=== PATIENT | female | born 1955 | race Caucasian/White ===

== ENCOUNTER 2017-10-12 19:31 | Inpatient (IN) ==
[2017-10-12] MEDS ORDERED: Naloxone 0.4 MG/ML INJ IVP PRN (22:05)
--- NOTE | 2017-10-12 22:05 | Internal Med History&Physical ---
Date of Encounter: 10/13/17 Time of Encounter: 21:50 Internal Medicine - H&P: HPI Chief complaint: Fever and weakness Admitted From: Hospital to Hospital Transfer ([facility]) Plans for Post Hospital Care: [facility] History of present illness: Ms. Finch is a 61 year old female with history of COPD, CHF, CVA, breast cancer of the right breast status post mastectomy, atrial fibrillation, [place], hypertension who presented to the [place] with weakness and high fever. Although the patient is alert and oriented, she is highly somnolent and does not appear to have complete awareness of the circumstances which brought her to the hospital so much history is obtained from prior notes. The patient apparently was visiting her primary care provider today and stepped outside to smoke a cigarette at which time she reportedly became increasingly weak and had a near syncopal episode. EMS was called and she was found to have a fever of 103, and she was reported to be "sluggish" and behavior. According to her family who accompanied her to the emergency room, the patient was doing well prior to this with the exception of a red rash under her left breast tissue, abdominal folds and her extremities. They say that the symptoms started at about the time that she smoked a cigarette in her PCPs office. Significantly, the patient was recently admitted to [facility] and [facility] off-and- on for severe pneumonia/COPD exacerbation, and has been in the ICU at [facility] with acute respiratory failure requiring intubation and mechanical ventilator support. She was most recently discharged from [facility] for an episode of unresponsiveness at which time she was found to have a blood sugar of 43. She was found to have a leukocytosis and bandemia and was treated for continuing pneumonia with Levaquin which continued at discharge. She was discharged to a [facility], however the patient left AMA on Tuesday because she felt that she was not benefiting from maintaining residence there. She has been feeling okay in the time since then, until today. There are no other accompanying symptoms. Patient says shortness of breath has improved, as has her cough, however the reliability of her history is questionable. In the ED at [place], the patient had TMax 105.1, heart rate 126, blood pressure 145/61,, respiratory rate 30. Labs demonstrated WBC 27.8, hemoglobin 11.2, HCT 41.0, sodium 137, potassium 3.3, chloride 96, bicarbonate 31, lactic acid 2.9. On previous admission (09/14), the patient had pansensitive group C strep and blood culture and group B strep in urine culture. Urinalysis was generally unremarkable. Chest x-ray showed stable cardiomegaly, persistent but improved small bilateral pleural effusions with improved aeration in the lower lung zones bilaterally. 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 The patient was diagnosed with sepsis and was started on broad-spectrum antibiotics, given fluids and transferred to [facility] for ICU monitoring. Past Med Surg Social Fam HX - Past Medical History Medical history: arthritis, atrial fibrillation, cancer, CHF, COPD, coronary artery disease, CVA, diabetes, GERD, hyperlipidemia, hypertension, migraine, myocardial infarction, osteoporosis, other Additional medical history: SPINAL STENOSIS with sciatica right worsening left. 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 right elbow sx. masectomy right side. left knee replacement. - Social History Smoking Status: Current every day smoker Smokeless Tobacco Status: No Alcohol use: none Drug use: none - Family History Mother Living Status: Father Living Status: Hx Family Cardiac Disorders: Yes ([place]) Hx Family Endocrine Disorder: Yes Internal Medicine - H&P: Meds Calcium Carbonate [Calcium] 600 mg PO DAILY 10/06/15 [History] OxyCODONE/APAP 10/325 [Percocet 10/325 MG] 1 each PO Q6HR PRN 10/06/15 [History] Albuterol Sulfate [Albuterol Inhaler] 2 puff IH Q4HR PRN #0 12/18/15 [Rx] Budesonide/Formoterol 160/4.5 [Symbicort 160/4.5] 2 puff IH BID 09/15/17 [ History] Rivaroxaban [Xarelto] 20 mg PO DAILY 09/15/17 [History] Ascorbic Acid [C-500] 500 mg PO DAILY #30 tablet 09/29/17 [Rx] Ferrous Sulfate 325 mg PO DAILY #30 tablet 09/29/17 [Rx] Ascorbic Acid [Vitamin C] 500 mg PO 0630 tablet 10/04/17 [Rx] Ferrous Sulfate 325 mg PO 0630 tablet 10/04/17 [Rx] Lactobacillus [Culturelle] 1 each PO BID 3 Days cap.sprink 10/04/17 [Rx] Magnesium Oxide [Mag-Ox] 400 mg PO DAILY 7 Days #0 tablet 10/04/17 [Rx] OxyCODONE/APAP 5/325 [Percocet 5/325 MG] 1 each PO Q6HR PRN 30 Days #120 tablet 10/04/17 [Rx] Potassium Chloride 20 meq PO DAILY 365 Days tab.er.prt 10/04/17 [Rx] levoFLOXacin [Levaquin] 750 mg PO DAILY 3 Days tablet 10/04/17 [Rx] 3 Allergy/AdvReac Type Severity Reaction Status Date / Time lisinopril AdvReac Cough Verified 09/14/17 20:48 morphine AdvReac Nausea Verified 09/14/17 20:48 Penicillins AdvReac Nausea Verified 09/14/17 20:48 ranitidine [From Zantac] AdvReac Diarrhea Verified 09/14/17 20:48 ROS unobtainable: due to mental status All Systems PM: A 10-system review of systems was performed and is negative for pertinent findings except as documented above in the HPI. Review of systems: Review of systems is obtained, however I am unsure of its reliability due to the patient's current somnolence and mental status. Constitutional: Denies fevers, chills, weight loss, generalized fatigue Head/Neck: Denies KIM, neck stiffness EENT: Denies vision changes/blurriness, rhinorrhea, congestion, sore throat CVS: Denies chest pain, palpitations, SAHNI, orthopnea, edema, PND Pulm: Admits to improving shortness breath, cough, sputum production GI: Denies abdominal pain, nausea, vomiting, diarrhea, constipation, melena, hematemasis : Denies dysuria, increased frequency, urgency, hematuria Heme: Denies ease of bleeding or bruising MSK: Denies joint pain, limited ROM Skin: Admits to painful reddening of skin under left breast and on lower extremity Neuro: Denies KIM, paresthesias, focal deficits, ataxia - Constitutional Exam: Gen: Vitals noted. Patient is mildly distressed and somnolent HEENT: Normocephalic, atraumatic. Mucous membranes appear dry. Mallamati 4 Neck: Supple. No adenopathy. Cardiac: RRR, no murmur, +S1/S2. Tachycardic Pulmonary: Rhonchi dispersed throughout however significantly increased on left greater than right. Generalized wheezes Abdomen: soft, tenderness without guarding generally Back: Nontender throughout. 3 stage II sacral decubital ulcers noted, Stage 2- 3 decubitus ulcer noted on right inner thigh near crural fold Extremities: 1-2+ bilateral lower extremity edema with bilateral lower extremity erythema however there is no warmth to be noted, no weeping Neuro: moves all extremities, no focal deficits. A to verbal stimuli &Ox3 but not totally aware of context Internal Med - H&P Results - EKG Data -: EKG Interpreted by Myself EKG shows normal: sinus rhythm, intervals Rate: tachycardia - EKG Data normal axis [place]/QRS: left axis deviation - Assessment and plan (1) Sepsis Current Visit: Yes Status: Acute Assessment and plan: Sepsis, most likely source is pneumonia vs. cutaneous infection TMax 105.1, RR 30, HR >120, Lactic acid 2.9, WBC 27.8 Patient has had numerous hospitalizations in the past month for recurrent or unresolved pneumonia CT scan on arrival does demonstrate multifocal consolidation suspicious for pneumonia The patient was discharged on Levaquin, however it's unclear whether she was compliant as she had concerns about diarrhea In the hospital on last admission, it appears that the patient recieved Vancomycin, levaquin, cefepime In the ED, got 2L fluids, vancomycin and levaquin Plan -Consult to pulmonology for sepsis secondary to recurrent pneumonia -Repeat lactic acid, cmp, cbc -Empiric antibiotics for HCAP pending cultures -Vancomycin, zosyn, levquin -Blood cultures, Sputum cultures pending Qualifiers: Sepsis type: sepsis due to unspecified organism Qualified Code(s): A41.9 - Sepsis, unspecified organism (2) Acute and chronic respiratory failure Current Visit: Yes Status: Acute Assessment and plan: Acute respiratory failure with hypoxia and hypercapnia The patient does have history of COPD, and breathing is relative labored Currently, patient is requiring 8L O2 via oxymask ABG 7.37/58/68/34/92 on 7L Plan: -Bipap overnight and as needed -Duonebs scheduled and prn -Titrate O2 to SpO2 >88% Qualifiers: Respiratory failure complication: hypoxia and hypercapnia Qualified Code(s) : J96.21 - Acute and chronic respiratory failure with hypoxia; J96.22 - Acute and chronic respiratory failure with hypercapnia (3) Pneumonia Current Visit: Yes Status: Acute Assessment and plan: Bilateral, mutifocal pneumonia demonstrated on CT Chest Patient has had numerous hospitalizations in the past month for recurrent or unresolved pneumonia CT scan on arrival does demonstrate multifocal consolidation suspicious for pneumonia On arrival, and in time since, the patient has had increased oxygen demand as well ABG 7.37/58/68/34/92 on 7L Plan -Treat with empiric antibiotics as above -Consider ID consult pending pulmonology recommendations Qualifiers: Pneumonia type: due to unspecified organism Laterality: bilateral Lung location: unspecified part of lung Qualified Code(s): J18.9 - Pneumonia, unspecified organism (4) COPD (chronic obstructive pulmonary disease) Current Visit: Yes Status: Acute Assessment and plan: COPD Exacerbation The patient is having increased O2 demand, CO2 retention There is diffuse wheezing on examination I suspect that exacerbation of COPD plays role in this respiratory failure Plan -IV Solu-medrol 60mg Q8h -Duonebs scheduled and prn Qualifiers: COPD type: unspecified COPD Qualified Code(s): J44.9 - Chronic obstructive pulmonary disease, unspecified (5) Weakness Current Visit: Yes Status: Acute Assessment and plan: We will consult PT/OT when the patient is stable medically (6) Atrial fibrillation Current Visit: No Status: Chronic Assessment and plan: History of atrial fibrillation EKG on arrival was questionable for Afib RVR with HR 121 Following fluids, repeat EKG demonstrated sinus tachycardia Plan Continue Xarelto Continue home meds Qualifiers: Atrial fibrillation type: chronic Qualified Code(s): I48.2 - Chronic atrial fibrillation (7) Hypokalemia Current Visit: Yes Status: Acute Assessment and plan: Replete potassium (8) Obesity Current Visit: No Status: Acute Qualifiers: Obesity type: due to excess calories Obesity classification: adult class 3 (BMI >= 40) Serious obesity comorbidity presence: with serious comorbidity Body mass index: unspecified BMI Qualified Code(s): E66.01 - Morbid (severe) obesity due to excess calories - Time Spent With Patient Total time spent is greater than 50% in coordination of care (as documented) at patient's floor/unit and/or counseling patient:
[2017-10-12] MEDS ORDERED: Acetaminophen 325 MG TABLET PO PRN (22:15)
[2017-10-12] MEDS ORDERED: traMADol 50 MG TABLET PO PRN (22:15)
[2017-10-12] MEDS ORDERED: *HR* HYDROcodone/Acet 5/325 mg TABLET PO PRN (22:15)
[2017-10-12 22:56] LABS: ABG Base Excess 7 mEq/L (-2 to 3); ABG HCO3 34 mEq/L (21-27); ABG Oxygen Saturation 92 % (95-98); ABG PCO2 58 mmHg (35-45); ABG PH 7.37 pH Units (7.32-7.45); ABG PO2 68 mmHg (85-104); ABG TCO2 35 mEq/L (20-26)
[2017-10-12] MEDS ORDERED: *HR* OxyCODONE/APAP 10/325 TABLET PO PRN (23:14)
--- NOTE | 2017-10-12 23:34 | Sepsis Event Note ---
Sepsis Reassessment Note - Evaluation Sepsis Screen: Sepsis Risk Current Stage of Sepsis: sepsis Possible Source of Sepsis: pulmonary - Focused Exam Date of Encounter: 10/12/17 Time of Encounter: 23:31 Vital Signs: Vital Signs Temp Pulse Resp BP Pulse Ox 10/12/17 22:55 102.1 F H 103 15 116/55 96 10/12/17 22:46 103 Respiratory Exam: Present: rhonchi (L>R), crackles Cardiovascular Exam: Present: RRR, tachycardia. Absent: murmur, rubs, gallop, JVD Capillary Refill: < 2 seconds Peripheral Pulse Strength: 1+ faint Peripheral Pulse Location: Pedal Skin Exam: pink
[2017-10-12] MEDS ORDERED: Vancomycin 1,750 MG in 0.9 % Sodium Chloride 250 ML IVPB SCH (23:45)
[2017-10-13] MEDS: Piperacillin/Tazobactam 3.375 GM in 0.9 % Sodium Chloride Mini Bag 100 ML IVPB SCH ×2 (00:02→08:24)
[2017-10-13] MEDS ORDERED: Ipratropium/Albuterol Neb 3 ML IH PRN ×2 (01:15→19:18)
[2017-10-13 03:51] LABS: Basophils # 0.1 K/mcL (0.0-0.2); Basophils % 0.2 %; Eosinophils % 0.1 %; Hematocrit 38.6 % (35.3-44.9); Hemoglobin 10.6 g/dL (11.5-15.4); Immature Granulocytes % 0.9 % (0-4); Lymphocytes # 1.3 K/mcL (0.6-4.6); Lymphocytes % 5.3 %; Mean Corpuscular HGB Conc 27.5 g/dL (31.6-35.5); Mean Corpuscular Hemoglobin 21.8 pg (28.0-33.3); Mean Corpuscular Volume 79.4 fL (83.0-100.0); Neutrophils # 22.3 K/mcL (1.6-8.9); Platelet Count 149 K/mcL (140-400); Red Blood Count 4.86 M/mcL (3.82-4.97); Red Cell Distribution Width 23.5 % (11.5-14.5); Segmented Neutrophils % 89.5 %
[2017-10-13] MEDS: Ipratropium/Albuterol Neb 3 ML IH SCH ×6 (03:56→23:43)
[2017-10-13 04:11] LABS: Alanine Aminotransferase 7 Units/L (7-52); Albumin 2.6 g/dL (3.5-5.7); Albumin/Globulin Ratio 0.8 (1.1-2.2); Alkaline Phosphatase 56 Units/L (34-104); Aspartate Amino Transferase 14 Units/L (13-39); BUN/Creatinine Ratio 17 (6-26); Bilirubin,Total 0.6 mg/dL (0.3-1.0); Blood Urea Nitrogen 10 mg/dL (8-23); Calcium 7.2 mg/dL (8.6-10.3); Carbon Dioxide 28 mEq/L (23-29); Chloride 102 mEq/L (98-107); Globulin 3.3 g/dL (2.4-3.5); Glucose 135 mg/dL (70-105); Magnesium 1.1 mg/dL (1.6-2.6); Osmolality,Calculated 283 (280-300); Potassium 3.5 mEq/L (3.5-5.1); Sodium 136 mEq/L (136-145); Total Protein 5.9 g/dL (6.4-8.9); eGFR For Non-African Americans > 60 (> 60)
[2017-10-13 04:18] LABS: Anisocytosis 2+ (Not Present); Hypochromasia Present (Not Present)
[2017-10-13 04:19] LABS: Large Platelets Present (Not Present); Microcytosis Present (Not Present); Ovalocytes 1+ (Not Present); Platelet Estimate Normal (Normal); Poikilocytosis 2+ (Not Present); Reactive Lymphocytes Present (Not Present); Smudge Cells Present (Not Present); Tear Drop Cells 1+ (Not Present)
[2017-10-13] MEDS ORDERED: Potassium Phosphate 44 MEQ in 0.9 % Sodium Chloride 250 ML IVPB PRN (05:34)
[2017-10-13] MEDS ORDERED: methylPREDNISolone 125 MG/2 ML VIAL IVP SCH (08:00)
--- NOTE | 2017-10-13 08:06 | Pulmonology History & Physical ---
<Ibrahima Nguyen W - Last Filed: 10/13/17 09:09> Date of Encounter: 10/13/17 History of Present Illness HPI: Ms. Finch is a 61 year old female Medications and Allergies Calcium Carbonate [Calcium] 600 mg PO DAILY 10/06/15 [History] OxyCODONE/APAP 10/325 [Percocet 10/325 MG] 1 each PO Q6HR PRN 10/06/15 [History] Albuterol Sulfate [Albuterol Inhaler] 2 puff IH Q4HR PRN #0 12/18/15 [Rx] Budesonide/Formoterol 160/4.5 [Symbicort 160/4.5] 2 puff IH BID 09/15/17 [ History] Rivaroxaban [Xarelto] 20 mg PO DAILY 09/15/17 [History] Ascorbic Acid [C-500] 500 mg PO DAILY #30 tablet 09/29/17 [Rx] Ferrous Sulfate 325 mg PO 0630 tablet 10/04/17 [Rx] Lactobacillus [Culturelle] 1 each PO BID 3 Days cap.sprink 10/04/17 [Rx] Magnesium Oxide [Mag-Ox] 400 mg PO DAILY 7 Days #0 tablet 10/04/17 [Rx] Potassium Chloride 20 meq PO DAILY 365 Days tab.er.prt 10/04/17 [Rx] Albuterol Neb [AccuNeb] 1.25 mg IH Q4-6H PRN 10/13/17 [History] Aspirin [Lo-Dose Aspirin EC] 81 mg PO DAILY 10/13/17 [History] Atorvastatin [Lipitor] 40 mg PO HS 10/13/17 [History] Bisacodyl [Dulcolax] 5 mg PO BID 10/13/17 [History] Bumetanide [Bumetanide] 4 mg PO QPM 10/13/17 [History] Bumetanide [Bumetanide] 6 mg PO QAM 10/13/17 [History] Cetirizine HCl [Zyrtec] 10 mg PO DAILY 10/13/17 [History] Cholecalciferol (D-3) [Vitamin D] 1,000 unit PO DAILY 10/13/17 [History] Gabapentin [Neurontin] 600 mg PO TID 10/13/17 [History] Glimepiride [Amaryl] 4 mg PO DAILY 10/13/17 [History] Isosorbide MONOnitrate (24 HR) [Imdur] 60 mg PO DAILY 10/13/17 [History] Losartan [Cozaar] 25 mg PO DAILY 10/13/17 [History] Methocarbamol [Robaxin] 750 mg PO TID 10/13/17 [History] Metoprolol Succinate [Toprol Xl] 100 mg PO DAILY 10/13/17 [History] Montelukast [Singulair] 10 mg PO HS 10/13/17 [History] Pantoprazole Sodium [Protonix] 40 mg PO DAILY 10/13/17 [History] Saxagliptin HCl [Onglyza] 5 mg PO DAILY 10/13/17 [History] Sertraline [Zoloft] 25 mg PO DAILY 10/13/17 [History] Sucralfate [Carafate] 1 gm PO QPM 10/13/17 [History] Tiotropium Br/Olodaterol HCl [Stiolto Respimat Inhal [place]] 2 puff IH DAILY [History] hydrOXYzine HCl [Hydroxyzine HCl] 25 mg PO TID PRN 10/13/17 [History] 3 Allergy/AdvReac Type Severity Reaction Status Date / Time lisinopril AdvReac Cough Verified 10/13/17 08:20 morphine AdvReac Nausea Verified 10/13/17 08:20 Penicillins AdvReac Nausea Verified 10/13/17 08:20 ranitidine [From Zantac] AdvReac Diarrhea Verified 10/13/17 08:20 All Systems: The remainder of the systems were reviewed and are negative Physical Examination Vital Signs: Vital Signs, Last 4 Hours Temp Pulse Resp BP Pulse Ox 10/13/17 08:00 91 15 121/58 98 10/13/17 07:47 20 98 10/13/17 07:43 97.8 F 10/13/17 07:00 94 13 126/60 98 10/13/17 06:00 85 14 116/60 98 Results - Laboratory Findings CBC and BMP: 10/13/17 03:41 10/13/17 03:41 ABG ABG pH 7.37 pH Units (7.32-7.45) 10/12/17 22:51 ABG pCO2 58 mmHg (35-45) H 10/12/17 22:51 ABG pO2 68 mmHg (85-104) L 10/12/17 22:51 ABG O2 Saturation 92 % (95-98) L 10/12/17 22:51 Abnormal lab findings: Abnormal lab results WBC 24.9 K/mcL (4.3-11.1) H 10/13/17 03:41 Hgb 10.6 g/dL (11.5-15.4) L 10/13/17 03:41 MCV 79.4 fL (83.0-100.0) L 10/13/17 03:41 MCH 21.8 pg (28.0-33.3) L 10/13/17 03:41 MCHC 27.5 g/dL (31.6-35.5) L 10/13/17 03:41 RDW 23.5 % (11.5-14.5) H 10/13/17 03:41 Neutrophils # 22.3 K/mcL (1.6-8.9) H 10/13/17 03:41 Reactive Lymphocytes Present (Not Present) A 10/13/17 03:41 Smudge Cells Present (Not Present) A 10/13/17 03:41 Large Platelets Present (Not Present) A 10/13/17 03:41 Hypochromasia Present (Not Present) A 10/13/17 03:41 Poikilocytosis 2+ (Not Present) A 10/13/17 03:41 Anisocytosis 2+ (Not Present) A 10/13/17 03:41 Microcytosis Present (Not Present) A 10/13/17 03:41 Tear Drop Cells 1+ (Not Present) A 10/13/17 03:41 Ovalocytes 1+ (Not Present) A 10/13/17 03:41 ABG pCO2 58 mmHg (35-45) H 10/12/17 22:51 ABG pO2 68 mmHg (85-104) L 10/12/17 22:51 ABG HCO3 34 mEq/L (21-27) H 10/12/17 22:51 ABG Total CO2 35 mEq/L (20-26) H 10/12/17 22:51 ABG O2 Saturation 92 % (95-98) L 10/12/17 22:51 ABG Base Excess 7 mEq/L (-2 to 3) H 10/12/17 22:51 Creatinine 0.58 mg/dL (0.60-1.20) L 10/13/17 03:41 Glucose 135 mg/dL (70-105) H 10/13/17 03:41 POC Glucose 113 mg/dL (70-99) H 10/13/17 07:25 Calcium 7.2 mg/dL (8.6-10.3) L 10/13/17 03:41 Magnesium 1.1 mg/dL (1.6-2.6) L 10/13/17 03:41 B-Natriuretic Peptide 1118 pg/mL (Less than 100) H 10/13/17 03:41 Serum Total Protein 5.9 g/dL (6.4-8.9) L 10/13/17 03:41 Albumin 2.6 g/dL (3.5-5.7) L 10/13/17 03:41 Albumin/Globulin Ratio 0.8 (1.1-2.2) L 10/13/17 03:41 - Attending Attestation I examined this patient and my medical decision-making was reviewed with the Resident Physician. I agree with the documented findings, disposition and treatment plan as described except to the extent set forth below. We independently had [id number] contact with the patient Patient seen and examined at bedside Labs, radiology, chart personally reviewed. Management was reviewed during multidisciplinary critical care rounds. SECURITY STRATEGIST: The patient is fully awake and alert continue to monitor for delirium Pulm: Acute on chronic hypoxic hypercapnic respiratory failure probably hypoxia which I think in large part is related to cardiogenic pulmonary edema possibility of pneumonia exists she has severe underlying COPD and obesity hypoventilation syndrome/obstructive sleep apnea acceptable oxygenation and gas exchange today continue oxygen mask during the day and positive airway pressure at night Cards: Patient has a history of heart failure and has evidence of cardiogenic pulmonary edema I believe it is safe to initiate diuresis today because of the crystalloid infusion that she received in the last 24 hours. No evidence of cardiac ischemia GI: Continue to monitor Nutrition: Advance diet as tolerated Renal: UOP Monitored, Cont to Trend sCr and monitor Electrolytes. ID: Patient came in with pyrexia likely secondary to sepsis sources include cellulitis versus pneumonia she is on broad-spectrum antibiotics cultures are pending. Blood de-escalate based upon clinical course and cultures. May need ID consult. Although the patient has listed penicillin allergy this is an intolerance in that it caused diarrhea in the past but she has tolerated penicillin before without allergic response we will switch from Zosyn to cefepime for coverage of cellulitis and continue vancomycin Heme/Onc: She is on long-term anticoagulation H&H is stable Endo: Glucose Monitored Integ/MSK: She has evidence of blanching erythema throughout the lower abdomen and pelvic region which may suggest cellulitisshe also has some lower extremity edema/erythema which I suspect is related to chronic stasis CT of the pelvis and abdomen was not suggestive of 40 years gangrene and that is not my impression on physical examination either. We will continue to follow this very closely. Skin Care per routine ICU Nursing Protocol to prevent ulcers. Lines: All lines examined without evidence of infection : Dispo: I suspect that [facility] CODE: Full <Micheal Lujan - Last Filed: 10/13/17 21:02> Date of Encounter: 10/13/17 Time of Encounter: 08:00 Assessment and Plan (1) Sepsis Current visit: Yes Status: Acute - likely due to an Infectious etiology - cellulitis/Pneumonia, Resp Infection Panel was negative. patient was leukocytotic (27.8), Tachcardia (HR: 126) wit elevated lactate (2.9) when she came to the [place] ED. Received 2L fluids Vanc and Levqin in the ED - Initially we stared her on Cefepime and Vancomycin, but we discontinued her vancomycin because her MRSA swab was negative. Her Urine Culture was negative for Legionella and S. Pneumo - patient is currently on 4 L of oxygen ([place]) , currently not tachycardic. - continue to the monitor her hemodynamic satus. Qualifiers: Sepsis type: sepsis due to unspecified organism Qualified Code(s): A41.9 - Sepsis, unspecified organism (2) Acute and chronic respiratory failure with hypercapnia Current visit: Yes Status: Acute - patient has a Hx of COPD , Her ABG on admission was pH: 7.37, pCO2: 58, PO2: 68, HCO3-: 34 - her CXR did showed pulmonary edema, BNP : 1118. Hence the resp faiure could likely be due to cardiogenic pulmonary edema - currently on duonebs, AbX and 6L of oxygen, 1mg Bumex for diuresis. - Titrate oxygen to keep the SpO2> 88% (3) COPD (chronic obstructive pulmonary disease) Current visit: Yes Status: Acute -patient has a Hx of COPD. - her ABG showed Compensatory Respiratory Acidosis physical exam showed b/l wheezing - she's on duonebs scheduled/PRN, Abx and Suple O2 - continue to monitor her Respiratory Status. Titrate O2 to keep SpO2> 88% Qualifiers: COPD type: unspecified COPD Qualified Code(s): J44.9 - Chronic obstructive pulmonary disease, unspecified (4) Pneumonia Current visit: Yes Status: Acute - patient has had multiple episodes of pneumonia. - Chest CT showed irregular consolidative opacities with concern for multifocal pneumonia - Her physical exam shows b/l wheezing but no fever, chills she's being treated with broad spectrum Abx (cefepime) , currently on 4L of oxygen Qualifiers: Pneumonia type: due to unspecified organism Laterality: bilateral Lung location: unspecified part of lung Qualified Code(s): J18.9 - Pneumonia, unspecified organism History of Present Illness Chief complaint: acute on chronic hypercapnic respiratory failure HPI: Ms. Finch is a 61 year old female with a PMHx of recurrent PNA, Diastolic dysfunction, Breast cancer s/p R sided mastectomy, Afib, who was admitted to the [place] ED for weakness and high fever. Patient is a poor historian but from what I understand patient stepped out to smoke and felt very sluggish, weak and had a near syncopal issue. Patient was transferred to the ED [place] and was diagnosed with Sepsis (leukocytosis of 27.8, HR: 126, lactic acid : 2.9) . She was started on broad spectrum Abx and fluids and transferred to the [facility] ICU. patient has had multiple admissions in the past for recurrent PNA to [facility] and the last time she as there she was discharged on levaquin and transferred to SNF Past Med Surg Social Fam HX - Past Medical History Medical history: arthritis, atrial fibrillation, cancer, CHF, COPD, coronary artery disease, CVA, diabetes, GERD, hyperlipidemia, hypertension, migraine, myocardial infarction, osteoporosis, other Additional medical history: SPINAL STENOSIS with sciatica right worsening left. 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 right elbow sx. masectomy right side. left knee replacement. - Social History Smoking Status: Current every day smoker Smokeless Tobacco Status: No Alcohol use: none Drug use: none - Family History Mother Living Status: Father Living Status: Hx Family Cardiac Disorders: Yes ([place]) Hx Family Endocrine Disorder: Yes All Systems: The remainder of the systems were reviewed and are negative - Constitutional Constitutional: as per HPI - EENT Eyes: as per HPI Nose, mouth and throat: as per HPI - Cardiovascular Cardiovascular: as per HPI - Respiratory Respiratory: as per HPI - Gastrointestinal Gastrointestinal: as per HPI - Genitourinary Genitourinary: as per HPI Physical Examination Vital Signs: Vital Signs, Last 4 Hours Temp Pulse Resp BP Pulse Ox 10/13/17 07:43 97.8 F 10/13/17 07:00 80 13 126/60 98 10/13/17 06:00 85 14 116/60 98 10/13/17 05:00 85 14 115/52 98 General appearance: no acute distress (A&O*3, good mentation) Auscultation: bilateral: wheezes (no rales or ronchi) Percussion: bilateral: not dull Cardiovascular: regular rate and rhythm (no gallos, murmurs or rubs) Gastrointestinal: soft, non-tender, non-distended Extremities: no cyanosis, no edema, no clubbing (blanched erythema on her lower extremities) Results - Laboratory Findings CBC and BMP: 10/13/17 03:41 10/13/17 13:10 ABG ABG pH 7.37 pH Units (7.32-7.45) 10/12/17 22:51 ABG pCO2 58 mmHg (35-45) H 10/12/17 22:51 ABG pO2 68 mmHg (85-104) L 10/12/17 22:51 ABG O2 Saturation 92 % (95-98) L 10/12/17 22:51 Abnormal lab findings: Abnormal lab results WBC 24.9 K/mcL (4.3-11.1) H 10/13/17 03:41 Hgb 10.6 g/dL (11.5-15.4) L 10/13/17 03:41 MCV 79.4 fL (83.0-100.0) L 10/13/17 03:41 MCH 21.8 pg (28.0-33.3) L 10/13/17 03:41 MCHC 27.5 g/dL (31.6-35.5) L 10/13/17 03:41 RDW 23.5 % (11.5-14.5) H 10/13/17 03:41 Neutrophils # 22.3 K/mcL (1.6-8.9) H 10/13/17 03:41 Reactive Lymphocytes Present (Not Present) A 10/13/17 03:41 Smudge Cells Present (Not Present) A 10/13/17 03:41 Large Platelets Present (Not Present) A 10/13/17 03:41 Hypochromasia Present (Not Present) A 10/13/17 03:41 Poikilocytosis 2+ (Not Present) A 10/13/17 03:41 Anisocytosis 2+ (Not Present) A 10/13/17 03:41 Microcytosis Present (Not Present) A 10/13/17 03:41 Tear Drop Cells 1+ (Not Present) A 10/13/17 03:41 Ovalocytes 1+ (Not Present) A 10/13/17 03:41 ABG pCO2 58 mmHg (35-45) H 10/12/17 22:51 ABG pO2 68 mmHg (85-104) L 10/12/17 22:51 ABG HCO3 34 mEq/L (21-27) H 10/12/17 22:51 ABG Total CO2 35 mEq/L (20-26) H 10/12/17 22:51 ABG O2 Saturation 92 % (95-98) L 10/12/17 22:51 ABG Base Excess 7 mEq/L (-2 to 3) H 10/12/17 22:51 Creatinine 0.58 mg/dL (0.60-1.20) L 10/13/17 03:41 Glucose 135 mg/dL (70-105) H 10/13/17 03:41 POC Glucose 113 mg/dL (70-99) H 10/13/17 07:25 Calcium 7.2 mg/dL (8.6-10.3) L 10/13/17 03:41 Magnesium 1.1 mg/dL (1.6-2.6) L 10/13/17 03:41 B-Natriuretic Peptide 1118 pg/mL (Less than 100) H 10/13/17 03:41 Serum Total Protein 5.9 g/dL (6.4-8.9) L 10/13/17 03:41 Albumin 2.6 g/dL (3.5-5.7) L 10/13/17 03:41 Albumin/Globulin Ratio 0.8 (1.1-2.2) L 10/13/17 03:41
--- NOTE | 2017-10-13 08:21 | Electrocardiograph Report ---
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
[2017-10-13] MEDS ORDERED: Levofloxacin 750 MG/150 ML 750 MG/150 ML BAG IVPB SCH (09:00)
[2017-10-13] MEDS ORDERED: *HR* Rivaroxaban 10 MG TABLET PO SCH ×2 (09:00→18:00)
[2017-10-13 09:07] LABS: Amphetamine Screen,Urine Negative ng/mL (Cutoff=1000); Barbiturate Screen,Urine Negative ng/mL (Cutoff=200); Benzodiazepines Screen,Urine Negative ng/mL (Cutoff=200); Cannabinoid Screen,Urine Negative ng/mL (Cutoff = 50); Cocaine Screen,Urine Negative ng/mL (Cutoff= 300); Opiate Screen,Urine Negative ng/mL (Cutoff=300); Phencyclidine Screen,Urine Negative ng/mL (Cutoff=25)
[2017-10-13] MEDS ORDERED: D5% in Water 1,000 ML IVC PRN ×2 (10:34→19:18)
[2017-10-13] MEDS ORDERED: Dextrose Gel 15 GM/37.5 ML TUBE PO PRN ×4 (10:34→19:18)
[2017-10-13] MEDS ORDERED: *HR* Dextrose 50 % in Water (Syg) 50 ML SYRINGE IVP PRN ×2 (10:34→19:18)
[2017-10-13] MEDS: Bumetanide 1 MG/4 ML VIAL IVP SCH ×2 (11:19→16:37)
[2017-10-13 11:56] LABS: ABG Base Excess 4 mEq/L (-2 to 3); ABG HCO3 31 mEq/L (21-27); ABG Oxygen Saturation 94 % (95-98); ABG PCO2 51 mmHg (35-45); ABG PH 7.38 pH Units (7.32-7.45); ABG PO2 72 mmHg (85-104); ABG TCO2 32 mEq/L (20-26)
[2017-10-13] MEDS: Insulin LISPRO 300 UNITS/3 ML VIAL SQ SCH ×3 (11:57→20:18)
[2017-10-13 13:48] LABS: Magnesium 1.4 mg/dL (1.6-2.6); Potassium 3.5 mEq/L (3.5-5.1)
[2017-10-13] MEDS ORDERED: Cefepime HCl 1,000 MG in Water for inj. (sterile) 20 ML 10 ML IVP SCH (16:00)
[2017-10-13] MEDS ORDERED: Naloxone 0.4 MG/ML INJ IVP PRN (19:18)
[2017-10-13] MEDS ORDERED: *HR* HYDROcodone/Acet 5/325 mg TABLET PO PRN (19:18)
[2017-10-13] MEDS ORDERED: Acetaminophen 325 MG TABLET PO PRN (19:18)
[2017-10-13] MEDS ORDERED: Ipratropium/Albuterol Neb 3 ML ONE (19:41)
[2017-10-13] MEDS ORDERED: Insulin LISPRO 300 UNITS/3 ML VIAL SQ SCH (21:00)
[2017-10-13 22:37] LABS: Basophils % 0.1 %; Hematocrit 35.9 % (35.3-44.9); Immature Granulocytes % 0.7 % (0-4); Lymphocytes # 0.3 K/mcL (0.6-4.6); Lymphocytes % 2.8 %; Mean Corpuscular HGB Conc 27.9 g/dL (31.6-35.5); Mean Corpuscular Hemoglobin 22.1 pg (28.0-33.3); Mean Corpuscular Volume 79.2 fL (83.0-100.0); Mean Platelet Volume 11.4 fL (9.4-12.4); Monocytes # 0.3 K/mcL (0.0-1.3); Monocytes % 2.1 %; Neutrophils # 11.6 K/mcL (1.6-8.9); Platelet Count 133 K/mcL (140-400); Red Blood Count 4.53 M/mcL (3.82-4.97); Red Cell Distribution Width 23.2 % (11.5-14.5); Segmented Neutrophils % 94.3 %
[2017-10-13 22:48] LABS: Anisocytosis 2+ (Not Present); Hypochromasia Present (Not Present); Ovalocytes 1+ (Not Present)
[2017-10-13 22:51] LABS: Alanine Aminotransferase 8 Units/L (7-52); Albumin 2.6 g/dL (3.5-5.7); Albumin/Globulin Ratio 0.8 (1.1-2.2); Alkaline Phosphatase 59 Units/L (34-104); Aspartate Amino Transferase 10 Units/L (13-39); BUN/Creatinine Ratio 22 (6-26); Bilirubin,Total 0.4 mg/dL (0.3-1.0); Blood Urea Nitrogen 11 mg/dL (8-23); Calcium 7.7 mg/dL (8.6-10.3); Carbon Dioxide 28 mEq/L (23-29); Chloride 100 mEq/L (98-107); Globulin 3.4 g/dL (2.4-3.5); Glucose 225 mg/dL (70-105); Osmolality,Calculated 290 (280-300); Potassium 3.4 mEq/L (3.5-5.1); Sodium 137 mEq/L (136-145); eGFR For Non-African Americans > 60 (> 60)
[2017-10-14] MEDS: Cefepime HCl 1,000 MG in Water for inj. (sterile) 20 ML 10 ML IVP SCH ×3 (00:10→17:07)
[2017-10-14 03:52] LABS: Immature Granulocytes % 0.7 % (0-4); Mean Corpuscular HGB Conc 27.6 g/dL (31.6-35.5)
[2017-10-14 03:53] LABS: Basophils % 0.1 %; Hematocrit 36.6 % (35.3-44.9); Hemoglobin 10.1 g/dL (11.5-15.4); Lymphocytes # 0.5 K/mcL (0.6-4.6); Lymphocytes % 3.6 %; Mean Corpuscular Hemoglobin 21.6 pg (28.0-33.3); Mean Corpuscular Volume 78.4 fL (83.0-100.0); Monocytes # 0.4 K/mcL (0.0-1.3); Neutrophils # 12.5 K/mcL (1.6-8.9); Platelet Count 128 K/mcL (140-400); Red Blood Count 4.67 M/mcL (3.82-4.97); Red Cell Distribution Width 23.2 % (11.5-14.5); Segmented Neutrophils % 92.6 %
[2017-10-14 04:14] LABS: BUN/Creatinine Ratio 25 (6-26); Blood Urea Nitrogen 11 mg/dL (8-23); Carbon Dioxide 31 mEq/L (23-29); Chloride 101 mEq/L (98-107); Glucose 153 mg/dL (70-105); Magnesium 1.6 mg/dL (1.6-2.6); Osmolality,Calculated 286 (280-300); Potassium 3.7 mEq/L (3.5-5.1); Sodium 137 mEq/L (136-145); eGFR For Non-African Americans > 60 (> 60)
[2017-10-14 04:23] LABS: Platelet Estimate Decreased (Normal)
[2017-10-14 04:24] LABS: Anisocytosis 2+ (Not Present); Hypochromasia Present (Not Present)
[2017-10-14] MEDS: Ipratropium/Albuterol Neb 3 ML IH SCH ×5 (04:24→23:11)
[2017-10-14] MEDS: *HR* OxyCODONE/APAP 10/325 TABLET PO PRN ×2 (06:27→19:20)
[2017-10-14] MEDS ORDERED: Bumetanide 1 MG/4 ML VIAL IVP SCH (08:00)
[2017-10-14] MEDS: predniSONE 20 MG TABLET PO SCH (08:57)
[2017-10-14] MEDS: Insulin LISPRO 300 UNITS/3 ML VIAL SQ SCH ×4 (09:00→21:27)
[2017-10-14] MEDS ORDERED: predniSONE 20 MG TABLET PO SCH (09:00)
[2017-10-14] MEDS: Aspirin Enteric Coated 81 MG Tablet PO SCH (12:26)
[2017-10-14] MEDS: Ascorbic Acid 500 MG TABLET PO SCH (12:31)
[2017-10-14] MEDS: Metoprolol XL (24 HR) Succ 50 MG TAB.ER.24H PO SCH (12:31)
[2017-10-14] MEDS: Isosorbide MONOnitrate (24 HR) 60 MG TAB.ER.24H PO SCH (12:31)
[2017-10-14 14:30] LABS: Adenovirus F 40/41 PCR Not detected (Not detect); C.difficile Toxin A/B by PCR Not detected (Not detect); Campylobacter by PCR Not detected (Not detect); Cryptosporidium by PCR Not detected (Not detect); Cyclospora cayetanensis PCR Not detected (Not detect); E. coli O157 by PCR Not detected (Not detect); Entamoeba histolytica PCR Not detected (Not detect); Enteroaggregative E.coli(EAEC) Not detected (Not detect); Enteropathogenic E.coli(EPEC) Not detected (Not detect); Enterotoxigenic E.coli (ETEC) Not detected (Not detect); Giardia lamblia PCR Not detected (Not detect); Plesiomonas shigelloides PCR Not detected (Not detect); Salmonella PCR Not detected (Not detect); Shig/EnteroinvasiveE coli EIEC Not detected (Not detect); Shigalike tox-prod E coli STEC Not detected (Not detect); Vibrio PCR Not detected (Not detect); Vibrio cholerae PCR Not detected (Not detect); Yersinia enterocolitica PCR Not detected (Not detect)
[2017-10-14 14:31] LABS: Astrovirus PCR Not detected (Not detect); Norovirus GI/GII PCR Not detected (Not detect); Rotavirus A PCR Not detected (Not detect); Sapovirus PCR Not detected (Not detect)
--- NOTE | 2017-10-14 15:39 | Internal Med Progress Note ---
Date of Encounter: 10/14/17 Time of Encounter: 08:40 - Assessment and plan (1) Sepsis Current Visit: Yes Status: Acute Assessment and plan: Sepsis, present on admission, likely secondary to pneumonia and cellulitis - now improving Continue IV cefepime, DuoNeb breathing treatment, prednisone Vancomycin discontinued because MRSA is negative Continue O2 via nasal cannula Repeat labs in a.m., cardiac telemetry, monitor closely Qualifiers: Sepsis type: sepsis due to unspecified organism Qualified Code(s): A41.9 - Sepsis, unspecified organism (2) Acute and chronic respiratory failure with hypercapnia Current Visit: Yes Status: Acute Assessment and plan: Acute on chronic hypercapnic respiratory failure - secondary to COPD exacerbation and pneumonia Continue DuoNeb breathing treatment, IV cefepime, incentive spirometry, IV Bumex Labs in a.m., monitor closely (3) COPD (chronic obstructive pulmonary disease) Current Visit: Yes Status: Chronic Assessment and plan: Acute exacerbation of COPD, slowly improving Continue Prednisone, DuoNeb breathing treatment Qualifiers: COPD type: unspecified COPD Qualified Code(s): J44.9 - Chronic obstructive pulmonary disease, unspecified (4) Atrial fibrillation Current Visit: No Status: Chronic Assessment and plan: Chronic A. fib, rate controlled Continue Xarelto for anticoagulation, continue Toprol-XL Qualifiers: Atrial fibrillation type: chronic Qualified Code(s): I48.2 - Chronic atrial fibrillation - Time Spent With Patient 25 - 35 minutes - Subjective Interval history: Examined this morning. Patient is awake and alert. Not in any distress. Sitting up comfortably in chair. Tolerating oral diet. Denies chest pain. Complains of mild cough and mild shortness of breath. Complains of mild generalized weakness. States her symptoms have improved. No fever. Hemodynamically stable. No other acute complaints. Patient has good urine output. Continue Bumex. Admitted for sepsis secondary to pneumonia or cellulitis. Patient also has acute exacerbation of COPD. Pulmonology has evaluated the patient. Continue IV cefepime and DuoNeb breathing treatment. Anticipate discharged home in 24- 48 hours. Patient does not want to go to SNF. - Constitutional Vitals: Temp Pulse Resp BP Pulse Ox 97.5 F L 74 18 116/75 98 10/14/17 10:13 10/14/17 10:13 10/14/17 10:13 10/14/17 10:13 10/14/17 10:13 General appearance: Present: cooperative, A&O X 3, pleasant, no acute distress, obese, answers questions appropriately - Head Head exam: Present: atraumatic - Eye Eye exam: Present: EOMI - ENT ENT exam: Present: mucous membranes moist - Respiratory Respiratory exam: Present: decreased breath sounds (In both bases decreased slightly.), wheezes (Mild bilateral). Absent: rhonchi, tachypnea - Cardiovascular Cardiovascular exam: Present: irregular rhythm, +S1, +S2 - GI/Abdominal GI/Abdominal exam: Present: soft, no peritoneal signs. Absent: distended, guarding, tenderness - Extremities Exam Extremities exam: Present: pedal edema (Bilateral pitting 3+). Absent: calf tenderness, tenderness - Neurological Exam Neurological exam: Present: alert, oriented X3, no focal deficits. Absent: speech deficit Internal Medicine: Result - Labs CBC & Chem 7: 10/14/17 03:30 10/14/17 03:30 Labs: Short CBC 10/13/17 10/14/17 Range/Units 21:11 03:30 WBC 12.3 H D 13.5 H (4.3-11.1) K/mcL Hgb 10.0 L 10.1 L (11.5-15.4) g/dL Hct 35.9 36.6 (35.3-44.9) % Plt Count 133 L 128 L (140-400) K/mcL Neutrophils # 11.6 H 12.5 H (1.6-8.9) K/mcL BMP 10/13/17 10/14/17 21:11 03:30 Sodium 137 137 Potassium 3.4 L 3.7 Chloride 100 101 Carbon Dioxide 28 31 H BUN 11 11 Creatinine 0.51 L 0.44 L Glucose 225 H 153 H Calcium 7.7 L 8.0 L Liver Function 10/13/17 Range/Units 21:11 Total Bilirubin 0.4 (0.3-1.0) mg/dL AST 10 L (13-39) Units/L ALT 8 (7-52) Units/L Alkaline Phosphatase 59 (34-104) Units/L Albumin 2.6 L (3.5-5.7) g/dL - ABG Interpretation ABG results: ABG ABG pH 7.38 pH Units (7.32-7.45) 10/13/17 11:52 ABG pCO2 51 mmHg (35-45) H 10/13/17 11:52 ABG pO2 72 mmHg (85-104) L 10/13/17 11:52 ABG O2 Saturation 94 % (95-98) L 10/13/17 11:52 Consult Discharge Plan - Plan Referrals: Neela Chavarria, H[facility] [Primary Care Provider] - 10/21/17 11:00 am
[2017-10-14] MEDS ORDERED: Aminoglycoside Consult 1 EACH MC ONE (16:09)
[2017-10-14] MEDS: Bumetanide 1 MG TABLET PO SCH (17:06)
[2017-10-14] MEDS: Sucralfate 1 GM TABLET PO SCH (17:07)
[2017-10-14] MEDS: *HR* Rivaroxaban 10 MG TABLET PO SCH (17:07)
[2017-10-15] MEDS: Cefepime HCl 1,000 MG in Water for inj. (sterile) 20 ML 10 ML IVP SCH ×3 (00:03→16:19)
[2017-10-15] MEDS: Ipratropium/Albuterol Neb 3 ML IH SCH ×6 (03:02→22:52)
[2017-10-15] MEDS: *HR* OxyCODONE/APAP 10/325 TABLET PO PRN ×4 (03:23→20:59)
[2017-10-15 03:58] LABS: Basophils % 0.1 %; Monocytes % 4.7 %
[2017-10-15 03:59] LABS: Hematocrit 35.3 % (35.3-44.9); Hemoglobin 9.8 g/dL (11.5-15.4)
[2017-10-15 04:00] LABS: Eosinophils % 0.2 %; Immature Granulocytes % 0.4 % (0-4); Lymphocytes % 9.7 %; Mean Corpuscular HGB Conc 27.8 g/dL (31.6-35.5); Mean Corpuscular Hemoglobin 21.8 pg (28.0-33.3); Mean Corpuscular Volume 78.4 fL (83.0-100.0); Monocytes # 0.5 K/mcL (0.0-1.3); Neutrophils # 8.3 K/mcL (1.6-8.9); Platelet Count 142 K/mcL (140-400); Red Cell Distribution Width 23.3 % (11.5-14.5); Segmented Neutrophils % 84.9 %
[2017-10-15 04:06] LABS: BUN/Creatinine Ratio 20 (6-26); Blood Urea Nitrogen 11 mg/dL (8-23); Calcium 8.5 mg/dL (8.6-10.3); Carbon Dioxide 35 mEq/L (23-29); Chloride 97 mEq/L (98-107); Glucose 125 mg/dL (70-105); Magnesium 1.5 mg/dL (1.6-2.6); Osmolality,Calculated 285 (280-300); Potassium 3.8 mEq/L (3.5-5.1); Sodium 137 mEq/L (136-145); eGFR For Non-African Americans > 60 (> 60)
[2017-10-15 04:20] LABS: Anisocytosis 3+ (Not Present); Large Platelets Present (Not Present); Microcytosis Present (Not Present); Platelet Estimate Normal (Normal)
[2017-10-15] MEDS: Ascorbic Acid 500 MG TABLET PO SCH (06:13)
[2017-10-15] MEDS: Insulin LISPRO 300 UNITS/3 ML VIAL SQ SCH ×4 (08:20→21:09)
[2017-10-15] MEDS: Bumetanide 1 MG TABLET PO SCH ×2 (08:28→17:51)
[2017-10-15] MEDS: Aspirin Enteric Coated 81 MG Tablet PO SCH (08:29)
[2017-10-15] MEDS: predniSONE 20 MG TABLET PO SCH (08:29)
[2017-10-15] MEDS: Metoprolol XL (24 HR) Succ 50 MG TAB.ER.24H PO SCH (08:29)
[2017-10-15] MEDS: Magnesium Oxide 400 MG TABLET PO SCH (08:29)
[2017-10-15] MEDS: Isosorbide MONOnitrate (24 HR) 60 MG TAB.ER.24H PO SCH (08:29)
[2017-10-15] MEDS: Cholecalciferol (D-3) 1,000 UNIT TABLET PO SCH (08:30)
--- NOTE | 2017-10-15 15:18 | Internal Med Progress Note ---
Date of Encounter: 10/15/17 Time of Encounter: 09:20 - Assessment and plan (1) Sepsis Current Visit: Yes Status: Acute Assessment and plan: Sepsis, present on admission, likely secondary to multifocal pneumonia and cellulitis - now slowly improving Continue IV Cefepime, DuoNeb breathing treatment, Prednisone Vancomycin discontinued because MRSA is negative Continue O2 via nasal cannula Pulmonology has evaluated the patient Repeat labs in a.m., cardiac telemetry, monitor closely Anticipate discharge home in about 24 hours. Patient does not want short-term SNF. Qualifiers: Sepsis type: sepsis due to unspecified organism Qualified Code(s): A41.9 - Sepsis, unspecified organism (2) Acute and chronic respiratory failure with hypercapnia Current Visit: Yes Status: Acute Assessment and plan: Acute on chronic hypercapnic respiratory failure - secondary to acute COPD exacerbation and pneumonia - slowly improving Continue DuoNeb breathing treatment, IV Cefepime, incentive spirometry, PO Bumex Labs in a.m., monitor closely (3) COPD (chronic obstructive pulmonary disease) Current Visit: Yes Status: Chronic Assessment and plan: Acute exacerbation of COPD, slowly improving Continue Prednisone, DuoNeb breathing treatment Qualifiers: COPD type: unspecified COPD Qualified Code(s): J44.9 - Chronic obstructive pulmonary disease, unspecified (4) Atrial fibrillation Current Visit: No Status: Chronic Assessment and plan: Chronic A. fib, rate controlled Continue Xarelto for anticoagulation, continue Toprol-XL Qualifiers: Atrial fibrillation type: chronic Qualified Code(s): I48.2 - Chronic atrial fibrillation - Time Spent With Patient 25 - 35 minutes - Subjective Interval history: Examined this morning. Patient is awake and alert. Not in any distress. Laying down comfortably in bed. Tolerating oral diet. Denies chest pain. Denies chest pain or shortness of breath. Complains of mild cough. States her symptoms have improved. Complains of mild generalized weakness. No fever. Hemodynamically stable. No other acute complaints. Good urine output. Continue PO Bumex. No other acute complaints. Admitted for sepsis secondary to pneumonia and cellulitis. Patient also has acute exacerbation of COPD. Pulmonology has evaluated the patient. Continue IV Cefepime and DuoNeb breathing treatment. Anticipate discharged home in ~ 24 hours. Patient does not want to go to SNF. - Constitutional Vitals: Temp Pulse Resp BP Pulse Ox 97.7 F 80 16 125/65 96 10/15/17 14:08 10/15/17 14:08 10/15/17 14:08 10/15/17 14:08 10/15/17 14:08 General appearance: Present: cooperative, A&O X 3, pleasant, no acute distress, obese, answers questions appropriately Exam: Awake and alert. Not in any distress. Able to provide history. - Head Head exam: Present: atraumatic - Eye Eye exam: Present: EOMI - ENT ENT exam: Present: mucous membranes moist - Neck Neck exam general surgery: Present: supple - Respiratory Respiratory exam: Present: CTAB. Absent: respiratory distress, tachypnea - Cardiovascular Cardiovascular exam: Present: irregular rhythm, +S1, +S2 - GI/Abdominal GI/Abdominal exam: Present: soft, no peritoneal signs. Absent: distended, firm , guarding, tenderness - Extremities Exam Extremities exam: Present: pedal edema (Bilateral 3+ pitting edema, mild erythema, improving), radial pulses palpable and symmetrical. Absent: calf tenderness - Neurological Exam Neurological exam: Present: alert, oriented X3, no focal deficits. Absent: facial droop, speech deficit Internal Medicine: Result - Labs CBC & Chem 7: 10/15/17 03:14 10/15/17 03:14 Labs: Short CBC 10/15/17 Range/Units 03:14 WBC 9.8 (4.3-11.1) K/mcL Hgb 9.8 L (11.5-15.4) g/dL Hct 35.3 (35.3-44.9) % Plt Count 142 (140-400) K/mcL Neutrophils # 8.3 (1.6-8.9) K/mcL BMP 10/15/17 03:14 Sodium 137 Potassium 3.8 Chloride 97 L Carbon Dioxide 35 H BUN 11 Creatinine 0.54 L Glucose 125 H Calcium 8.5 L - ABG Interpretation ABG results: ABG ABG pH 7.38 pH Units (7.32-7.45) 10/13/17 11:52 ABG pCO2 51 mmHg (35-45) H 10/13/17 11:52 ABG pO2 72 mmHg (85-104) L 10/13/17 11:52 ABG O2 Saturation 94 % (95-98) L 10/13/17 11:52 Consult Discharge Plan - Plan Referrals: Neela Chavarria, [facility]ERO [Primary Care Provider] - 10/21/17 11:00 am
[2017-10-15] MEDS: Sucralfate 1 GM TABLET PO SCH (17:51)
[2017-10-15] MEDS: *HR* Rivaroxaban 10 MG TABLET PO SCH (17:51)
[2017-10-16] MEDS: *HR* OxyCODONE/APAP 10/325 TABLET PO PRN ×3 (02:38→15:30)
[2017-10-16 03:39] LABS: Immature Granulocytes % 0.6 % (0-4)
[2017-10-16 03:41] LABS: Basophils % 0.3 %; Eosinophils # 0.1 K/mcL (0.0-0.6); Eosinophils % 1.5 %; Hematocrit 36.9 % (35.3-44.9); Hemoglobin 10.2 g/dL (11.5-15.4); Immature Platelets 13.3 % (1.1-6.1); Lymphocytes # 2.2 K/mcL (0.6-4.6); Lymphocytes % 30.3 %; Mean Corpuscular HGB Conc 27.6 g/dL (31.6-35.5); Mean Corpuscular Hemoglobin 21.7 pg (28.0-33.3); Mean Corpuscular Volume 78.7 fL (83.0-100.0); Monocytes # 0.5 K/mcL (0.0-1.3); Monocytes % 7.6 %; Platelet Count 164 K/mcL (140-400); Red Blood Count 4.69 M/mcL (3.82-4.97); Red Cell Distribution Width 23.1 % (11.5-14.5); Segmented Neutrophils % 59.7 %
[2017-10-16 03:44] LABS: Neutrophils # 4.2 K/mcL (1.6-8.9)
[2017-10-16 04:03] LABS: Hypochromasia Present (Not Present); Macrocytosis Present (Not Present); Ovalocytes 1+ (Not Present); Platelet Estimate Normal (Normal); Poikilocytosis 1+ (Not Present); Stomatocytes 1+ (Not Present)
[2017-10-16 04:05] LABS: Anisocytosis 2+ (Not Present); Large Platelets Present (Not Present)
[2017-10-16 04:07] LABS: BUN/Creatinine Ratio 20 (6-26); Blood Urea Nitrogen 11 mg/dL (8-23); Carbon Dioxide 43 mEq/L (23-29); Chloride 91 mEq/L (98-107); Glucose 90 mg/dL (70-105); Magnesium 1.4 mg/dL (1.6-2.6); Osmolality,Calculated 289 (280-300); Potassium 3.3 mEq/L (3.5-5.1); Sodium 140 mEq/L (136-145); eGFR For Non-African Americans > 60 (> 60)
[2017-10-16] MEDS: Ipratropium/Albuterol Neb 3 ML IH SCH ×4 (04:46→15:42)
[2017-10-16] MEDS: Cefepime HCl 1,000 MG in Water for inj. (sterile) 20 ML 10 ML IVP SCH ×3 (05:58→15:29)
[2017-10-16] MEDS: Ascorbic Acid 500 MG TABLET PO SCH (06:00)
[2017-10-16] MEDS: Isosorbide MONOnitrate (24 HR) 60 MG TAB.ER.24H PO SCH (08:44)
[2017-10-16] MEDS: predniSONE 20 MG TABLET PO SCH (08:44)
[2017-10-16] MEDS: Magnesium Oxide 400 MG TABLET PO SCH (08:44)
[2017-10-16] MEDS: Cholecalciferol (D-3) 1,000 UNIT TABLET PO SCH (08:45)
[2017-10-16] MEDS: Bumetanide 1 MG TABLET PO SCH (08:45)
[2017-10-16] MEDS: Metoprolol XL (24 HR) Succ 50 MG TAB.ER.24H PO SCH (08:45)
[2017-10-16] MEDS: Aspirin Enteric Coated 81 MG Tablet PO SCH (08:46)
[2017-10-16] MEDS: Insulin LISPRO 300 UNITS/3 ML VIAL SQ SCH ×2 (08:47→11:14)
[2017-10-16 10:55] VITALS: BP 145/65
--- NOTE | 2017-10-16 11:20 | Discharge Summary ---
Orders not resulted at time of discharge: Pending orders 10/13/17 00:13 Respiratory Infection Panel [MOLMIC] Routine 10/13/17 00:51 Culture,Sputum with Gram Stain [RM] Routine 10/17/17 04:00 Basic Metabolic Panel AM 0400 Complete Blood Count w/o Diff [HEME] AM 0400 Magnesium AM 0400 Date of Encounter: 10/16/17 Time of Encounter: 08:40 - Discharge Diagnosis (1) Sepsis Priority: Primary Status: Acute Comments: Sepsis, present on admission, likely secondary to multifocal pneumonia and cellulitis - now improved Continue Omnicef, DuoNeb breathing treatment, Prednisone Vancomycin discontinued because MRSA is negative Continue O2 via NC at 3L/min (baseline) Continue Magnesium, Potassium on discharge Pulmonology has evaluated the patient Stable for discharge home today. Return if symptoms worsen. Follow up with primary care physician. Qualifiers: Sepsis type: sepsis due to unspecified organism Qualified Code(s): A41.9 - Sepsis, unspecified organism (2) Acute and chronic respiratory failure with hypercapnia Priority: Primary Status: Acute Comments: Acute on chronic hypercapnic respiratory failure - secondary to acute COPD exacerbation and pneumonia - now improved Continue DuoNeb breathing treatment, Omnicef, Prednisone taper dose incentive spirometry, PO Bumex, O2 via NC (3) COPD (chronic obstructive pulmonary disease) Priority: Primary Status: Chronic Comments: Acute exacerbation of COPD, O2 dependent - now improved Continue Prednisone, DuoNeb breathing treatment Continue home dose of Tiotropium/Olodaterol, Symbicort Continue O2 at 3 L/m via NC (baseline) Qualifiers: COPD type: unspecified COPD Qualified Code(s): J44.9 - Chronic obstructive pulmonary disease, unspecified (4) Atrial fibrillation Priority: Primary Status: Chronic Comments: Chronic A. fib, rate controlled Continue Xarelto for anticoagulation, continue Toprol-XL Qualifiers: Atrial fibrillation type: chronic Qualified Code(s): I48.2 - Chronic atrial fibrillation (5) DM type 2 (diabetes mellitus, type 2) Priority: Secondary Status: Chronic Comments: Type 2 diabetes mellitus, [id number], hyperglycemia Continue home dose of Onglyza, Amaryl Qualifiers: Diabetes mellitus fpc insulin use: without long line teamster use Diabetes mellitus complication status: without complication Qualified Code(s): E11.9 - Type 2 diabetes mellitus without complications (6) Hypertension Priority: Secondary Status: Chronic Comments: Essential hypertension, controlled, monitor closely Continue home dose of Bumex, Imdur, Cozaar, Toprol-XL Qualifiers: Hypertension type: essential hypertension Qualified Code(s): I10 - Essential (primary) hypertension Hospital course: Ms. Ficnh is a 61 year old female with a past medical history of hypertension, COPD, CHF, A. fib, CVA, diabetes, hyperlipidemia, GERD, osteoarthritis, spinal stenosis, degenerative disc disease, anxiety and depression. Patient presented to the ED with complaints of generalized weakness and fever. Patient was initially somnolent and was unable to provide much history. Patient apparently had a near syncopal episode. Patient was found to be septic on admission. She was admitted for sepsis, secondary to cellulitis and multifocal pneumonia. Patient was started on IV Levaquin, vancomycin and cefepime. She was also started on fluids and breathing treatments. Patient also found to have acute on chronic hypoxic respiratory failure, secondary to pneumonia and COPD exacerbation. Patient was also started on systemic steroids. CT of the chest was significant for multifocal pneumonia. Patient was restarted on all her home medications. Initially required ICU admission. Patient was evaluated by pulmonology. Vancomycin was discontinued because MRSA screen was negative. Patient was continued on IV cefepime. She was then transferred to the regular floor. Patient initially required 4 L O2 via nasal cannula. She is now on 3 L O2 via nasal cannula which is her baseline. Patient has been advised to continue DuoNeb breathing treatments on discharge. She is being discharged on Omnicef. Advised to continue magnesium and potassium on discharge. Patient was initially on IV Bumex, we then switched her to oral home dose Bumex. Patient had good urine output. Patient's symptoms have now improved. Her labs and vitals are all fairly normal limits. Examined this morning. Patient is awake and alert. Not in any distress. Sitting up comfortably in chair. Tolerating oral diet well, and ablating well. Patient denies chest pain or shortness of breath. Denies abdominal pain or vomiting. States she feels better, and wants to go home today. Patient refuses short-term SNF placement. She does have home health services. Patient states that she will follow up with primary care physician. No fever. Hemodynamically stable. No other acute complaints. No other acute events or complications during her stay in the hospital. Patient has been explained about her condition and plan. Detail. She understood and agreed. No unanswered questions. No family members at the time of discharge. Advised to return if symptoms worsen. Advised follow up with primary care physician. Discharge discussed with: patient, nurse - Time Spent with Patient Total time spent providing and/or coordinating discharge services: Greater than 30 minutes - Discharge Medications Prescriptions: Ipratropium/Albuterol Neb [Duoneb] 3 ml IH [id number] #30 inhsol Cefdinir [Omnicef] 300 mg PO BID 10 Days #20 capsule predniSONE [PredniSONE] 40 mg PO DAILY 9 Days #10 tablet Home Medications: Calcium Carbonate [Calcium] 600 mg PO DAILY 10/06/15 [History] OxyCODONE/APAP 10/325 [Percocet 10/325 MG] 1 each PO Q6HR PRN 10/06/15 [History] Albuterol Sulfate [Albuterol Inhaler] 2 puff IH Q4HR PRN #0 12/18/15 [Rx] Budesonide/Formoterol 160/4.5 [Symbicort 160/4.5] 2 puff IH BID 09/15/17 [ History] Rivaroxaban [Xarelto] 20 mg PO DAILY 09/15/17 [History] Ascorbic Acid [C-500] 500 mg PO DAILY #30 tablet 09/29/17 [Rx] Ferrous Sulfate 325 mg PO 0630 tablet 10/04/17 [Rx] Lactobacillus [Culturelle] 1 each PO BID 3 Days cap.sprink 10/04/17 [Rx] Magnesium Oxide [Mag-Ox] 400 mg PO DAILY 7 Days #0 tablet 10/04/17 [Rx] Potassium Chloride 20 meq PO DAILY 365 Days tab.er.prt 10/04/17 [Rx] Aspirin [Lo-Dose Aspirin EC] 81 mg PO DAILY 10/13/17 [History] Atorvastatin [Lipitor] 40 mg PO HS 10/13/17 [History] Bisacodyl [Dulcolax] 5 mg PO BID 10/13/17 [History] Bumetanide 4 mg PO QPM 10/13/17 [History] Bumetanide 6 mg PO QAM 10/13/17 [History] Cetirizine HCl [Zyrtec] 10 mg PO DAILY 10/13/17 [History] Cholecalciferol (D-3) [Vitamin D] 1,000 unit PO DAILY 10/13/17 [History] Gabapentin [Neurontin] 600 mg PO TID 10/13/17 [History] Glimepiride [Amaryl] 4 mg PO DAILY 10/13/17 [History] Isosorbide MONOnitrate (24 HR) [Imdur] 60 mg PO DAILY 10/13/17 [History] Losartan [Cozaar] 25 mg PO DAILY 10/13/17 [History] Metoprolol Succinate [Toprol Xl] 100 mg PO DAILY 10/13/17 [History] Montelukast [Singulair] 10 mg PO HS 10/13/17 [History] Pantoprazole Sodium [Protonix] 40 mg PO DAILY 10/13/17 [History] Saxagliptin HCl [Onglyza] 5 mg PO DAILY 10/13/17 [History] Sertraline [Zoloft] 25 mg PO DAILY 10/13/17 [History] Sucralfate [Carafate] 1 gm PO QPM 10/13/17 [History] Tiotropium Br/Olodaterol HCl [Stiolto Respimat Inhal [place]] 2 puff IH DAILY [History] hydrOXYzine HCl [Hydroxyzine HCl] 25 mg PO TID PRN 10/13/17 [History] Cefdinir [Omnicef] 300 mg PO BID 10 Days #20 capsule 10/16/17 [Rx] Ipratropium/Albuterol Neb [Duoneb] 3 ml IH J1ICAAL #30 inhsol 10/16/17 [Rx] predniSONE [PredniSONE] 40 mg PO DAILY 9 Days #10 tablet 10/16/17 [Rx] Allergies/Adverse Reactions: 3 Allergy/AdvReac Type Severity Reaction Status Date / Time lisinopril AdvReac Cough Verified 10/13/17 08:20 morphine AdvReac Nausea Verified 10/13/17 08:20 Penicillins AdvReac Nausea Verified 10/13/17 08:20 ranitidine [From Zantac] AdvReac Diarrhea Verified 10/13/17 08:20 Date of admission: 10/12/17 21:52 Primary care physician: Neela Chavarria CNP Consults: 10/13/17 00:13 Consult to Pulmonology [CONS] Routine Consulting Provider: [facility] Reason for Consult: sepsis Call Completed: No 10/13/17 08:50 Consult to Invasive Line Access Team [CONS] Routine Reason for Consult: limited vascular access. Line Type: EPIV 10/13/17 08:55 Consult to Water Treatment Technician [CONS] Routine Reason for SW Consult: ecf Discharging clinician: Chun Mccarty Anticipated date of discharge: 10/16/17 - Constitutional Vitals: Temp Pulse Resp BP Pulse Ox 97.7 F 57 18 145/65 99 10/16/17 10:53 10/16/17 10:53 10/16/17 10:53 10/16/17 10:53 10/16/17 10:53 General appearance: Present: cooperative, A&O X 3, pleasant, no acute distress, obese, answers questions appropriately Exam: Awake and alert. Not in any distress. Able to provide history. Sitting up comfortably. - Head Head exam: Present: atraumatic - Eye Eye exam: Present: EOMI - ENT ENT exam: Present: mucous membranes moist - Neck Neck exam general surgery: Present: supple - Respiratory Respiratory exam: Present: CTAB. Absent: respiratory distress, rhonchi, wheezes , tachypnea - Cardiovascular Cardiovascular exam: Present: irregular rhythm, +S1, +S2 - GI/Abdominal GI/Abdominal exam: Present: soft, no peritoneal signs. Absent: distended, firm , guarding, tenderness - Extremities Exam Extremities exam: Present: pedal edema (Bilateral 3+ pitting edema with mild erythema - improving), radial pulses palpable and symmetrical. Absent: calf tenderness, tenderness - Neurological Exam Neurological exam: Present: alert, oriented X3, no focal deficits. Absent: facial droop, speech deficit - Psychiatric Psychiatric exam: Present: normal mood - Patient Status Disposition: Home Health Service Condition: Good Functional capacity at discharge: independent ambulation Overall status at discharge: patient is progressing back to baseline - Discharge Instructions Follow Up With: Neela Chavarria CNP [Primary Care Provider] - 10/21/17 11:00 am - Diet and Activity Activity: increase activity as tolerated, resume usual activities as tolerated, wear oxygen at all times Diet: advance to your usual diet, low salt diet
--- NOTE | 2017-10-17 10:40 | Electrocardiograph Report ---
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
== END 2017-10-16 16:10 | disposition home health service (06) | DRG 871 ==
LOC: ICNU 21:52 → 3ANU 10-13 20:25
PROVIDERS: ADMIT Internal Medicine; ATTEND Internal Medicine

== ENCOUNTER 2017-11-30 01:57 | Inpatient (IN) ==
[2017-11-30] MEDS ORDERED: 0.9 % Sodium Chloride 1,000 ML IVC ONE (03:23)
[2017-11-30] MEDS ORDERED: Naloxone 0.4 MG/ML INJ IVP PRN (03:23)
[2017-11-30] MEDS ORDERED: 0.9 % Sodium Chloride 250 ML IVC ONE (03:35)
[2017-11-30] MEDS ORDERED: Acetaminophen 650 MG RECTAL SUPP RC PRN (03:36)
[2017-11-30 03:51] LABS: ABG Base Excess 6 mEq/L (-2 to 3); ABG HCO3 33 mEq/L (21-27); ABG Oxygen Saturation 95 % (95-98); ABG PCO2 54 mmHg (35-45); ABG PH 7.39 pH Units (7.32-7.45); ABG PO2 79 mmHg (85-104); ABG TCO2 34 mEq/L (20-26)
[2017-11-30 05:04] LABS: Nucleated Red Blood Cells 0.1 /100 WBC (0)
[2017-11-30 05:06] LABS: Hematocrit 35.5 % (35.3-44.9); Hemoglobin 10.3 g/dL (11.5-15.4); Mean Corpuscular Hemoglobin 24.2 pg (28.0-33.3); Mean Corpuscular Volume 83.5 fL (83.0-100.0); Mean Platelet Volume 11.3 fL (9.4-12.4); Monocytes # 1.3 K/mcL (0.0-1.3); Platelet Count 171 K/mcL (140-400); Red Blood Count 4.25 M/mcL (3.82-4.97); Red Cell Distribution Width 19.3 % (11.5-14.5)
--- NOTE | 2017-11-30 05:06 | Procedure Note ---
<Sweta Metzger - Last Filed: 11/30/17 05:00> Date of procedure: 11/30/17 Pre-op diagnosis: Hypotension/Vascular access Post-op diagnosis: same Procedure: Central Venous Catheter (CVC, Central Line) Placement Date: 12/27/17 Time: 05:00 Indication: Hemodynamic monitoring/Intravenous access Resident: Dr. Sweta Metzger, Dr. Kendrick De La Cruz Attending: Dr. Winchester A time-out was completed verifying correct patient, procedure, site, positioning , and special equipment if applicable. The patient was placed in a dependent position appropriate for central line placement based on the vein to be cannulated. The patient's left groin was prepped and draped in sterile fashion. 1% Lidocaine was used to anesthetize the surrounding skin area. A 20 cm triple lumen Cordis catheter was introduced into the the common femoral vein using the Seldinger technique and under ultrasound guidance. The catheter was threaded smoothly over the guide wire and appropriate blood return was obtained. Each lumen of the catheter was evacuated of air and flushed with sterile saline. The catheter was then sutured in place to the skin and a sterile dressing applied. Perfusion to the extremity distal to the point of catheter insertion was checked and found to be adequate. Dr. Kendrick De La Cruz was present for the entire procedure. Estimated Blood Loss: 10 The patient tolerated the procedure well and there were no complications. Anesthesia: local Surgeon: Sweta Metzger Was there an junior sales assistant present: Yes Developmental Services Worker: Kendrick De La Cruz Estimated blood loss (cc): 10 IV fluids (cc): 10 Specimen: 30 cc venous blood Condition: critical Disposition: ICU <iMchael Winchester - Last Filed: 11/30/17 07:36> Procedure: I asked Dr. De La Cruz and Dr. Mathur to place CVC for ICU care and management.
[2017-11-30 05:27] LABS: Alanine Aminotransferase 4 Units/L (7-52); Albumin 2.8 g/dL (3.5-5.7); Albumin/Globulin Ratio 0.8 (1.1-2.2); Alkaline Phosphatase 47 Units/L (34-104); Aspartate Amino Transferase 13 Units/L (13-39); BUN/Creatinine Ratio 16 (6-26); Bilirubin,Direct 0.3 mg/dL (0.0-0.2); Bilirubin,Indirect 0.3 mg/dL (0.0-1.2); Bilirubin,Total 0.6 mg/dL (0.3-1.0); Blood Urea Nitrogen 12 mg/dL (8-23); Calcium 7.8 mg/dL (8.6-10.3); Carbon Dioxide 30 mEq/L (23-29); Chloride 101 mEq/L (98-107); Globulin 3.5 g/dL (2.4-3.5); Glucose 76 mg/dL (70-105); Magnesium 1.3 mg/dL (1.6-2.6); Osmolality,Calculated 285 (280-300); Potassium 3.1 mEq/L (3.5-5.1); Sodium 138 mEq/L (136-145); Total Protein 6.3 g/dL (6.4-8.9); eGFR For Non-African Americans > 60 (> 60)
[2017-11-30 05:45] LABS: Lymphocytes # 0.7 K/mcL (0.6-4.6); Neutrophils # 30.4 K/mcL (1.6-8.9)
[2017-11-30 05:46] LABS: Anisocytosis 1+ (Not Present); Macrocytosis Present (Not Present); Microcytosis Present (Not Present); Platelet Estimate Normal (Normal); Polychromasia 1+ (Not Present)
[2017-11-30] MEDS ORDERED: Potassium Chloride 40 MEQ/200 ML BAG IVPB PRN (06:03)
[2017-11-30] MEDS ORDERED: Potassium Phosphate 44 MEQ in 0.9 % Sodium Chloride 250 ML IVPB PRN (06:03)
[2017-11-30] MEDS ORDERED: Dextrose Gel 15 GM/37.5 ML TUBE PO PRN ×2 (06:06)
[2017-11-30] MEDS ORDERED: D5% in Water 1,000 ML IVC PRN (06:06)
[2017-11-30] MEDS ORDERED: *HR* Dextrose 50 % in Water (Syg) 50 ML SYRINGE IVP PRN (06:06)
--- NOTE | 2017-11-30 06:09 | Internal Med History&Physical ---
<Kendrick De La Cruz - Last Filed: 11/30/17 06:05> Date of Encounter: 11/30/17 Time of Encounter: 06:05 Internal Medicine - H&P: HPI Chief complaint: Fever, cough Admitted From: Emergency Dept Plans for Post Hospital Care: Home History of present illness: Ms. Finch is a 61 year old female with history of atrial fibrillation, type 2 diabetes, hypertension who presented to the emergency department because of shortness of breath. Patient is extremity poor historian and alert to person only. Most of the history is obtained from the medical record. Per their report EMS was called to the house possible elevated blood pressure. The patient was found to be minimally responsive and breathing heavily. Apparently family was at the scene but did not give much information and were extremely historians. Patient will respond to verbal stimuli but will not answer questions appropriately. She is able to state her name but otherwise is unable to give a history. Past Med Surg Social Fam HX - Past Medical History Medical history: arthritis, atrial fibrillation, cancer, CHF, COPD, coronary artery disease, CVA, diabetes, GERD, hyperlipidemia, hypertension, migraine, myocardial infarction, osteoporosis, other Additional medical history: SPINAL STENOSIS with sciatica right worsening left. 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 right elbow sx. masectomy right side. left knee replacement. - Social History Smoking Status: Current every day smoker Smokeless Tobacco Status: No Alcohol use: none Drug use: none - Family History Mother Living Status: Father Living Status: Hx Family Cardiac Disorders: Yes ([place]) Hx Family Endocrine Disorder: Yes Internal Medicine - H&P: Meds Calcium Carbonate [Calcium] 600 mg PO DAILY 10/06/15 [History] Rivaroxaban [Xarelto] 20 mg PO DAILY 09/15/17 [History] Ascorbic Acid [C-500] 500 mg PO DAILY #30 tablet 09/29/17 [Rx] Potassium Chloride 20 meq PO DAILY 365 Days tab.er.prt 10/04/17 [Rx] Aspirin [Lo-Dose Aspirin EC] 81 mg PO DAILY 10/13/17 [History] Atorvastatin [Lipitor] 40 mg PO HS 10/13/17 [History] Cetirizine HCl [Zyrtec] 10 mg PO DAILY 10/13/17 [History] Gabapentin [Neurontin] 600 mg PO TID 10/13/17 [History] Glimepiride [Amaryl] 4 mg PO DAILY 10/13/17 [History] Isosorbide MONOnitrate (24 HR) [Imdur] 60 mg PO DAILY 10/13/17 [History] Losartan [Cozaar] 25 mg PO DAILY 10/13/17 [History] Metoprolol Succinate [Toprol Xl] 100 mg PO DAILY 10/13/17 [History] Pantoprazole Sodium [Protonix] 40 mg PO DAILY 10/13/17 [History] Saxagliptin HCl [Onglyza] 5 mg PO DAILY 10/13/17 [History] Cholecalciferol (Vitamin D3) [Decara] 10,000 unit PO QAM 11/29/17 [History] Docusate Sodium [Stool Softener] 50 mg PO 11/29/17 [History] Magnesium Oxide [Mag-Ox] 250 mg PO DAILY 11/29/17 [History] Methocarbamol [Robaxin-750] 750 mg PO TID 11/29/17 [History] 3 Allergy/AdvReac Type Severity Reaction Status Date / Time lisinopril AdvReac Cough Verified 11/01/17 00:50 morphine AdvReac Nausea Verified 11/01/17 00:50 Penicillins AdvReac Nausea Verified 11/01/17 00:50 ranitidine [From Zantac] AdvReac Diarrhea Verified 11/01/17 00:50 ROS unobtainable: due to mental status All Systems PM: A 10-system review of systems was performed and is negative for pertinent findings except as documented above in the HPI. - Constitutional Vitals: Resp BP Pulse Ox 21 118/38 91 11/30/17 05:10 11/30/17 05:10 11/30/17 05:10 General appearance: Present: A&O X 1, disheveled Exam: Moderate Respiratory distress - Head Head exam: Present: atraumatic, normal inspection, normocephalic - Eye Eye exam: Present: EOMI, PERRL - ENT ENT exam: Present: mucous membranes dry - Neck Neck exam general surgery: Present: full ROM. Absent: nuchal rigidity - Respiratory Respiratory exam: Present: accessory muscle use, respiratory distress, rhonchi ( diffuse), tachypnea - Cardiovascular Cardiovascular exam: Present: RRR, tachycardia. Absent: gallop, rubs, systolic murmur - GI/Abdominal GI/Abdominal exam: Present: diminished bowel sounds, soft, no peritoneal signs. Absent: distended, tenderness - Extremities Exam Extremities exam: Present: tenderness. Absent: calf tenderness, cyanotic, pedal edema Additional comments: Lower extremity Solis wraps applied to the lower extremity is bilaterally from feet to knees. - Neurological Exam Neurological exam: Present: alert, altered, no focal deficits - Skin Skin exam: Present: dry, erythema (diffuse), excoriation (Under left breast), warm (extremely warm to touch) Internal Med - H&P Results - Labs CBC & Chem 7: 11/30/17 04:50 11/30/17 04:50 Labs: Short CBC 11/30/17 Range/Units 04:50 WBC 32.3 H* (4.3-11.1) K/mcL Hgb 10.3 L D (11.5-15.4) g/dL Hct 35.5 (35.3-44.9) % Plt Count 171 (140-400) K/mcL Neutrophils # 30.4 H (1.6-8.9) K/mcL BMP 11/30/17 04:50 Sodium 138 Potassium 3.1 L Chloride 101 Carbon Dioxide 30 H BUN 12 Creatinine 0.73 Glucose 76 Calcium 7.8 L Cardiac Enzymes 11/30/17 Range/Units 03:30 Troponin I 0.08 H* (< 0.04) ng/mL Liver Function 11/30/17 Range/Units 04:50 Total Bilirubin 0.6 (0.3-1.0) mg/dL Direct Bilirubin 0.3 H (0.0-0.2) mg/dL AST 13 (13-39) Units/L ALT 4 L (7-52) Units/L Alkaline Phosphatase 47 (34-104) Units/L Albumin 2.8 L (3.5-5.7) g/dL - ABG Interpretation ABG results: 11/30/17 03:46 ABG pH 7.39 ABG pCO2 54 H ABG pO2 79 L ABG HCO3 33 H ABG Total CO2 34 H ABG O2 Saturation 95 ABG Base Excess 6 H - Assessment and plan (1) Acute and chronic respiratory failure Current Visit: No Status: Acute Assessment and plan: Likely due to pneumonia and sepsis. Patient tachypnea and respiratory distress on presentation. Patient was on Oxy mask upon arrival, we will transition to BiPAP due to patient's work of breathing. Initial ABG shows acceptable oxygenation and ventilation. Qualifiers: Respiratory failure complication: hypoxia and hypercapnia Qualified Code(s) : J96.21 - Acute and chronic respiratory failure with hypoxia; J96.22 - Acute and chronic respiratory failure with hypercapnia (2) Sepsis Current Visit: No Status: Acute Assessment and plan: Likely due to pneumonia. UTI also showed leukocyte esterase so urinary tract infection also considered. Initial lactate was 3.4 presentation, has normalized. Patient received 2 L bolus in the emergency department. Given her weight of 108 kg another 1,250 mL bolus was given to complete the 30 mL/kg per sepsis protocol. Blood pressure was borderline low with maps in the high 50s upon arrival and improved with this most recent fluid bolus. Not requiring pressors at this point however patient may require pressor support. Central line placed (see procedure note for details). Blood cultures and urine cultures drawn in the emergency department. Qualifiers: Sepsis type: sepsis due to unspecified organism Qualified Code(s): A41.9 - Sepsis, unspecified organism (3) Pneumonia Current Visit: No Status: Acute Assessment and plan: Patient has evidence of diffuse opacities on chest x-ray and clinically is rhonchorous with fever and leukocytosis. Patient was recently admitted to the hospital so therefore will treat for healthcare acquired pneumonia with vancomycin, cefepime, Levaquin. Of note penicillin allergy listed however patient has taken cefepime before. Strep and legionella urinary antigen ordered , MRSA nasal swab ordered. Sputum culture also ordered. Qualifiers: Pneumonia type: due to unspecified organism Laterality: unspecified laterality Lung location: unspecified part of lung Qualified Code(s): J18.9 - Pneumonia, unspecified organism (4) Atrial fibrillation Current Visit: No Status: Chronic Assessment and plan: Vision has history of and is on rate controlling medications at home. On Xarelto for anticoagulation. Currently normal sinus rhythm. Xarelto being held due to nothing by mouth status and possible procedures including endotracheal intubation. If patient remains nothing by mouth for the foreseeable future will likely need to be on therapeutic anticoagulation lower risk of CVA Qualifiers: Atrial fibrillation type: paroxysmal Qualified Code(s): I48.0 - Paroxysmal atrial fibrillation (5) Diastolic heart failure Current Visit: No Status: Chronic Assessment and plan: History of diastolic heart failure and has had pulmonary edema in the past. At this point I feel like her respiratory symptoms are most likely related to sepsis and pneumonia and not acute fluid overload. Fluid given her sepsis protocol as discussed above. Patient is tolerating BiPAP well. If patient's respiratory status worsens would have low threshold for diuresis. Qualifiers: Heart failure chronicity: chronic Qualified Code(s): I50.32 - Chronic diastolic (congestive) heart failure (6) DM type 2 (diabetes mellitus, type 2) Current Visit: No Status: Chronic Assessment and plan: History of. On oral antidiabetic medications at home. Would sugar was in the 70s upon arrival. We will check blood sugars every 6 as patient is nothing by mouth. Monitor blood sugars, if elevated will treat with sliding scale insulin. Qualifiers: Diabetes mellitus terminal computer operator insulin use: without terminal computer operator use Diabetes mellitus complication status: without complication Qualified Code(s): E11.9 - Type 2 diabetes mellitus without complications (7) DVT prophylaxis Current Visit: Yes Status: Acute Assessment and plan: Patient on Xarelto at home. Currently being held due to nothing by mouth status. Patient remains anticoagulated given her Xarelto even if she took it yesterday morning. We will hold off on any further DVT prophylaxis at this time however patient remains nothing by mouth and Xarelto will need DVT prophylaxis. - Time Spent With Patient Total time spent is greater than 50% in coordination of care (as documented) at patient's floor/unit and/or counseling patient: <Michael Winchester - Last Filed: 11/30/17 07:32> Date of Encounter: 11/30/17 Time of Encounter: 04:30 ROS unobtainable: due to mental status - Constitutional Vitals: Temp Pulse Resp BP Pulse Ox 100.5 F H 110 21 118/38 91 11/30/17 06:59 11/30/17 03:38 11/30/17 05:10 11/30/17 05:10 11/30/17 05:10 General appearance: Present: A&O X 1, disheveled Exam: moderate to severe respiratory distress; oriented to self only - Head Head exam: Present: normal inspection - Eye Eye exam: Present: EOMI. Absent: scleral icterus - ENT ENT exam: Present: mucous membranes dry, normal oropharynx - Neck Neck exam general surgery: Present: full ROM, supple. Absent: tenderness, nuchal rigidity, thyromegaly - Respiratory Respiratory exam: Present: accessory muscle use, rales (right base), respiratory distress, rhonchi, tachypnea. Absent: chest wall tenderness, wheezes - Cardiovascular Cardiovascular exam: Present: RRR, +S1, +S2, tachycardia. Absent: diastolic murmur, systolic murmur - GI/Abdominal GI/Abdominal exam: Present: soft, no peritoneal signs. Absent: tenderness - Extremities Exam Extremities exam: Present: warm, radial pulses palpable and symmetrical. Absent : calf tenderness - Back Exam Back exam: Absent: CVA tenderness (L), CVA tenderness (R) - Neurological Exam Neurological exam: Present: altered, no focal deficits - Skin Skin exam: Present: dry, erythema, warm Internal Med - H&P Results - Labs CBC & Chem 7: 11/30/17 04:50 11/30/17 04:50 Labs: Short CBC 11/30/17 Range/Units 04:50 WBC 32.3 H* (4.3-11.1) K/mcL Hgb 10.3 L D (11.5-15.4) g/dL Hct 35.5 (35.3-44.9) % Plt Count 171 (140-400) K/mcL Neutrophils # 30.4 H (1.6-8.9) K/mcL BMP 11/30/17 04:50 Sodium 138 Potassium 3.1 L Chloride 101 Carbon Dioxide 30 H BUN 12 Creatinine 0.73 Glucose 76 Calcium 7.8 L Cardiac Enzymes 11/30/17 Range/Units 03:30 Troponin I 0.08 H* (< 0.04) ng/mL Liver Function 11/30/17 Range/Units 04:50 Total Bilirubin 0.6 (0.3-1.0) mg/dL Direct Bilirubin 0.3 H (0.0-0.2) mg/dL AST 13 (13-39) Units/L ALT 4 L (7-52) Units/L Alkaline Phosphatase 47 (34-104) Units/L Albumin 2.8 L (3.5-5.7) g/dL - ABG Interpretation ABG results: 11/30/17 03:46 ABG pH 7.39 ABG pCO2 54 H ABG pO2 79 L ABG HCO3 33 H ABG Total CO2 34 H ABG O2 Saturation 95 ABG Base Excess 6 H - Assessment and plan (1) Atrial fibrillation Current Visit: No Status: Chronic Qualifiers: Atrial fibrillation type: paroxysmal Qualified Code(s): I48.0 - Paroxysmal atrial fibrillation (2) Diastolic heart failure Current Visit: No Status: Chronic Qualifiers: Heart failure chronicity: chronic Qualified Code(s): I50.32 - Chronic diastolic (congestive) heart failure (3) DM type 2 (diabetes mellitus, type 2) Current Visit: No Status: Chronic Qualifiers: Diabetes mellitus long-term insulin use: without terminal computer operator use Diabetes mellitus complication status: without complication Qualified Code(s): E11.9 - Type 2 diabetes mellitus without complications (4) Sepsis Current Visit: No Status: Acute Qualifiers: Sepsis type: sepsis due to unspecified organism Qualified Code(s): A41.9 - Sepsis, unspecified organism (5) Pneumonia Current Visit: No Status: Acute Qualifiers: Pneumonia type: due to unspecified organism Laterality: unspecified laterality Lung location: unspecified part of lung Qualified Code(s): J18.9 - Pneumonia, unspecified organism (6) Acute and chronic respiratory failure Current Visit: No Status: Acute Qualifiers: Respiratory failure complication: hypoxia and hypercapnia Qualified Code(s) : J96.21 - Acute and chronic respiratory failure with hypoxia; J96.22 - Acute and chronic respiratory failure with hypercapnia (7) DVT prophylaxis Current Visit: Yes Status: Acute - Time Spent With Patient Total time spent is greater than 50% in coordination of care (as documented) at patient's floor/unit and/or counseling patient: - Attending Attestation I discussed the patient [place], past medical history, lab data, imaging findings, and exam findings with Dr. Galvin. I then saw and examined patient independently in the ICU. Patient is somnolent but responds to loud verbal and painful stimuli. She is oriented to self only. She has significant difficulty in breathing and signs of moderate to severe respiratory distress on exam. She is hypotensive and tachycardic and clinically septic. I am concerned that she will decompensate and may need elective intubation as the day progresses. Additionally, she needs IV fluid resuscitation and possibly pressors. I therefore asked Dr. Galvin to place a central venous catheter for ongoing critical care support and fluid management with pressor support if necessary. I asked respiratory therapy to place her on BiPAP and to trend her blood gas in the next several hours. She may decompensate and need urgent intubation as the day progresses. Presently now, she is tolerating BiPAP at the moment. I also spoke with Dr. Nova on his arrival to the ICU this morning and asked him to assume care in the intensive care unit given her critical care state. Other than my comments above and noted exam findings, I agree with Dr. Galvin' s assessment and plan. Please note that a total of 65 minutes critical care time spent with patient, coordinating care, reviewing labs, and with the medical decision making process.
[2017-11-30] MEDS: Ipratropium/Albuterol Neb 3 ML IH SCH ×5 (07:52→23:22)
[2017-11-30] MEDS ORDERED: Cefepime HCl 1,000 MG in Water for inj. (sterile) 20 ML 10 ML IVPB SCH (08:00)
[2017-11-30 08:29] LABS: Adenovirus Not Detected (Not Detect); Bordetella Pertussis Not Detected (Not Detect); Chlamydophila pneumoniae Not Detected (Not Detect); Coronavirus 229E Not Detected (Not Detect); Coronavirus HKU1 Not Detected (Not Detect); Coronavirus NL63 Not Detected (Not Detect); Coronavirus OC43 Not Detected (Not Detect); Human Metapneumovirus Not Detected (Not Detect); Human Rhinovirus/Enterovirus Not Detected (Not Detect); Influenza A Subtype 2009 H1 Not Detected (Not Detect); Influenza A Untypeable Not Detected (Not Detect); Influenza B Not Detected (Not Detect); Mycoplasma pneumoniae Not Detected (Not Detect); Parainfluenza Virus 1 Not Detected (Not Detect); Parainfluenza Virus 2 Not Detected (Not Detect); Parainfluenza Virus 3 Not Detected (Not Detect); Parainfluenza Virus 4 Not Detected (Not Detect); Respiratory Syncytial Virus Not Detected (Not Detect)
[2017-11-30] MEDS: MetroNIDAZOLE 500 MG/100 ML 500 MG/100 ML BAG IVPB SCH ×3 (08:45→23:31)
[2017-11-30] MEDS: *HR* Heparin 5,000 UNIT/ML VIAL SQ SCH ×2 (08:45→17:28)
[2017-11-30] MEDS: *HR* OxyCODONE/APAP 10/325 TABLET PO PRN ×2 (13:09→19:24)
[2017-11-30] MEDS: Insulin LISPRO 300 UNITS/3 ML VIAL SQ SCH ×3 (13:10→23:38)
--- NOTE | 2017-11-30 13:17 | Pulmonology Consult Note ---
<Flavio Garnett - Last Filed: 11/30/17 15:18> Date of Encounter: 11/30/17 Time of Encounter: 15:19 Assessment and Plan (1) Acute and chronic respiratory failure Current Visit: No Status: Acute Likely due to sepsis secondary to pneumonia Patient tachypnic with labored breathing upon initial admission Patient tolerated BiPAP well + DuoNebs and magnesium sulfate Patient currently resting comfortably, speaking in full sentences, alert and oriented 3, respiratory rate of 20 oxygen saturation 90% on 4 L/m via nasal cannula Qualifiers: Respiratory failure complication: hypoxia and hypercapnia Qualified Code(s) : J96.21 - Acute and chronic respiratory failure with hypoxia; J96.22 - Acute and chronic respiratory failure with hypercapnia (2) Sepsis Current Visit: No Status: Acute Likely secondary to pneumonia Also consider septic arthritis as a potential cause Patient initially tachycardic, tachypneic with labored breathing, and febrile upon initial admission Patient started on vancomycin, cefepime, metronidazole, levofloxacin for broad coverage Patient is currently afebrile, resting comfortably, speaking in complete sentences, alert and oriented 3, non-tachycardic, nontachypneic, on 4 L/m via nasal cannula. 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 insulin use: without fpc use Diabetes mellitus complication status: without complication Qualified Code(s): E11.9 - Type 2 diabetes mellitus without complications (4) Pneumonia Current Visit: No Status: Acute Diffuse opacities on chest x-ray with rhonchorous lung sounds Patient is afebrile, we will continue to monitor leukocytosis Continue vancomycin, cefepime, Levaquin, metronidazole Sputum cultures pending Qualifiers: Pneumonia type: due to unspecified organism Laterality: unspecified laterality Lung location: unspecified part of lung Qualified Code(s): J18.9 - Pneumonia, unspecified organism (5) Obesity Current Visit: No Status: Acute Patient BMI is 39.0 Lifestyle modifications including sleep hygiene and weight loss highly recommended. Qualifiers: Obesity type: due to excess calories Obesity classification: adult class 3 (BMI >= 40) Serious obesity comorbidity presence: with serious comorbidity Body mass index: unspecified BMI Qualified Code(s): E66.01 - Morbid (severe) obesity due to excess calories (6) DVT prophylaxis Current Visit: Yes Status: Acute Patient is on home Xarelto-hold for hospital admission 5000 units subcutaneous heparin twice a day for DVT prophylaxis History of Present Illness Reason for consult: dyspnea, COPD, pneumonia, abnormal CXR/CT Chief complaint: Difficulty breathing History of present illness: The patient is a 61-year-old female presenting to [facility] for difficulty breathing. Patient records indicate that EMS was called to her home on the evening of November 29 for what was believed to be possible elevated blood pressure. The patient was found to be minimally responsive and febrile, with tachypnea. Patient's family was present at the scene but were unwilling or unable to give any further information. Medical history obtained from patient has been inconsistent and difficult to obtain. Mental status has progressively increased since admission and patient is currently able to speak in short sentences and respond to questioning with supplemental oxygen. Past Med Surg Social Fam HX - Past Medical History Medical history: arthritis, atrial fibrillation, cancer, CHF, COPD, coronary artery disease, CVA, diabetes, GERD, hyperlipidemia, hypertension, migraine, myocardial infarction, osteoporosis, other Additional medical history: SPINAL STENOSIS with sciatica right worsening left. 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 right elbow sx. masectomy right side. left knee replacement. - Social History Smoking Status: Current every day smoker Smokeless Tobacco Status: No Alcohol use: none Drug use: none - Family History Mother Living Status: Father Living Status: Hx Family Cardiac Disorders: Yes ([place]) Hx Family Endocrine Disorder: Yes Medications and Allergies Rivaroxaban [Xarelto] 20 mg PO DAILY 09/15/17 [History] Ascorbic Acid [C-500] 500 mg PO DAILY #30 tablet 09/29/17 [Rx] Aspirin [Lo-Dose Aspirin EC] 81 mg PO DAILY 10/13/17 [History] Atorvastatin [Lipitor] 40 mg PO HS 10/13/17 [History] Cetirizine HCl [Zyrtec] 10 mg PO DAILY 10/13/17 [History] Gabapentin [Neurontin] 600 mg PO TID 10/13/17 [History] Glimepiride [Amaryl] 4 mg PO DAILY 10/13/17 [History] Isosorbide MONOnitrate (24 HR) [Imdur] 60 mg PO DAILY 10/13/17 [History] Losartan [Cozaar] 25 mg PO DAILY 10/13/17 [History] Metoprolol Succinate [Toprol Xl] 100 mg PO DAILY 10/13/17 [History] Pantoprazole Sodium [Protonix] 40 mg PO DAILY 10/13/17 [History] Saxagliptin HCl [Onglyza] 5 mg PO DAILY 10/13/17 [History] Cholecalciferol (Vitamin D3) [Decara] 10,000 unit PO QAM 11/29/17 [History] Methocarbamol [Robaxin-750] 750 mg PO TID 11/29/17 [History] Albuterol Sulfate [Ventolin Hfa] 2 puff IH Q4HR PRN 11/30/17 [History] Bisacodyl [Dulcolax] 5 mg PO BID PRN 11/30/17 [History] Bumetanide [Bumetanide] 4 mg PO 1400 11/30/17 [History] Bumetanide [Bumetanide] 6 mg PO QAM 11/30/17 [History] Calcium Carbonate/Vitamin D3 [Calcium 600 + Vit D Tablet] 1 tab PO DAILY [History] Ferrous Sulfate [Iron] 325 mg PO DAILY 11/30/17 [History] Montelukast [Singulair] 10 mg PO DAILY 11/30/17 [History] Nystatin OINT [Mycostatin] 1 appl TP TID 11/30/17 [History] Nystatin POWDER [Nystop] 1 appl TP TID 11/30/17 [History] OxyCODONE/APAP 10/325 [Percocet 10/325 MG] 1 tab PO Q6H PRN 11/30/17 [History] Tiotropium Br/Olodaterol HCl [Stiolto Respimat Inhal [place]] 2 puff IH DAILY 05/15 [History] hydrOXYzine HCl [Hydroxyzine HCl] 25 mg PO TID 11/30/17 [History] 3 Allergy/AdvReac Type Severity Reaction Status Date / Time lisinopril AdvReac Cough Verified 11/01/17 00:50 morphine AdvReac Nausea Verified 11/01/17 00:50 Penicillins AdvReac Nausea Verified 11/01/17 00:50 ranitidine [From Zantac] AdvReac Diarrhea Verified 11/01/17 00:50 All Systems: The remainder of the systems were reviewed and are negative - Constitutional Constitutional: chills, headache(s) - EENT Eyes: no loss of vision Nose, mouth and throat: headache(s), no dizziness, no odynophagia - Cardiovascular Cardiovascular: no chest pain, no dyspnea, no lightheadedness, no syncope - Respiratory Respiratory: no dyspnea - Gastrointestinal Gastrointestinal: no abdominal pain - Musculoskeletal Musculoskeletal: back pain - Neurological Neurological: no loss of vision, no numbness, no paresthesias, no tingling, no other visual disturbances Physical Examination Vital Signs: Vital Signs, Last 4 Hours Temp Pulse Resp BP Pulse Ox 11/30/17 11:53 98.0 F 11/30/17 11:45 92 21 131/52 93 11/30/17 10:45 98 22 128/55 93 11/30/17 09:45 108 20 130/53 95 General appearance: no acute distress, alert Eyes: nonicteric ENT: oropharynx moist Auscultation: bilateral: rhonchi Cardiovascular: regular rate and rhythm Gastrointestinal: normoactive bowel sounds, soft, non-tender, non-distended Integumentary: normal Extremities: no cyanosis, no edema, other (Bilateral erythema and warmth to touch on lower extremities. Mild skin breakdown on the right ramesh noted, no areas of fluctuance appreciated.) non-focal exam mood appropriate, affect normal Results - Laboratory Findings CBC and BMP: 11/30/17 04:50 11/30/17 04:50 ABG ABG pH 7.39 pH Units (7.32-7.45) 11/30/17 03:46 ABG pCO2 54 mmHg (35-45) H 11/30/17 03:46 ABG pO2 79 mmHg (85-104) L 11/30/17 03:46 ABG O2 Saturation 95 % (95-98) 11/30/17 03:46 Abnormal lab findings: Abnormal lab results WBC 32.3 K/mcL (4.3-11.1) H* 11/30/17 04:50 Hgb 10.3 g/dL (11.5-15.4) L D 11/30/17 04:50 MCH 24.2 pg (28.0-33.3) L 11/30/17 04:50 MCHC 29.0 g/dL (31.6-35.5) L 11/30/17 04:50 RDW 19.3 % (11.5-14.5) H 11/30/17 04:50 Band Neutrophils % 8.0 % (0-4) H 11/30/17 04:50 Neutrophils # 30.4 K/mcL (1.6-8.9) H 11/30/17 04:50 Nucleated RBCs/100 WBC 0.1 /100 WBC (0) H 11/30/17 04:50 Polychromasia 1+ (Not Present) A 11/30/17 04:50 Anisocytosis 1+ (Not Present) A 11/30/17 04:50 Microcytosis Present (Not Present) A 11/30/17 04:50 Macrocytosis Present (Not Present) A 11/30/17 04:50 ABG pCO2 54 mmHg (35-45) H 11/30/17 03:46 ABG pO2 79 mmHg (85-104) L 11/30/17 03:46 ABG HCO3 33 mEq/L (21-27) H 11/30/17 03:46 ABG Total CO2 34 mEq/L (20-26) H 11/30/17 03:46 ABG Base Excess 6 mEq/L (-2 to 3) H 11/30/17 03:46 Potassium 3.1 mEq/L (3.5-5.1) L 11/30/17 04:50 Carbon Dioxide 30 mEq/L (23-29) H 11/30/17 04:50 Calcium 7.8 mg/dL (8.6-10.3) L 11/30/17 04:50 Magnesium 1.3 mg/dL (1.6-2.6) L 11/30/17 04:50 Direct Bilirubin 0.3 mg/dL (0.0-0.2) H 11/30/17 04:50 ALT 4 Units/L (7-52) L 11/30/17 04:50 Troponin I 0.08 ng/mL (< 0.04) H* 11/30/17 03:30 Serum Total Protein 6.3 g/dL (6.4-8.9) L 11/30/17 04:50 Albumin 2.8 g/dL (3.5-5.7) L 11/30/17 04:50 Albumin/Globulin Ratio 0.8 (1.1-2.2) L 11/30/17 04:50 - Microbiology Findings Microbiology Findings: Microbiology, Last 48 Hours 11/30/17 08:10 Legionella Antigen - Final Urine,[place] Streptococcus pneumoniae Antigen (M - Final - Clinical Findings Intake & Output: Intake & Output 11/29/17 11/30/17 11/30/17 23:59 07:59 15:59 Intake Total 1250 / 1250 100 / 100 Output Total 50 / 50 25 / 25 Balance 1200 / 1200 75 / 75 Weight 106.2 kg Consult Discharge Plan - Plan Referrals: NONE,PCP [Primary Care Provider] - <Urbano Tracy S - Last Filed: 11/30/17 17:09> Date of Encounter: 11/30/17 All Systems: The remainder of the systems were reviewed and are negative Physical Examination Vital Signs: Vital Signs, Last 4 Hours Resp Pulse Ox 11/30/17 15:20 20 92 Results - Laboratory Findings CBC and BMP: 11/30/17 04:50 11/30/17 04:50 ABG ABG pH 7.39 pH Units (7.32-7.45) 11/30/17 03:46 ABG pCO2 54 mmHg (35-45) H 11/30/17 03:46 ABG pO2 79 mmHg (85-104) L 11/30/17 03:46 ABG O2 Saturation 95 % (95-98) 11/30/17 03:46 Abnormal lab findings: Abnormal lab results WBC 32.3 K/mcL (4.3-11.1) H* 11/30/17 04:50 Hgb 10.3 g/dL (11.5-15.4) L D 11/30/17 04:50 MCH 24.2 pg (28.0-33.3) L 11/30/17 04:50 MCHC 29.0 g/dL (31.6-35.5) L 11/30/17 04:50 RDW 19.3 % (11.5-14.5) H 11/30/17 04:50 Band Neutrophils % 8.0 % (0-4) H 11/30/17 04:50 Neutrophils # 30.4 K/mcL (1.6-8.9) H 11/30/17 04:50 Nucleated RBCs/100 WBC 0.1 /100 WBC (0) H 11/30/17 04:50 Polychromasia 1+ (Not Present) A 11/30/17 04:50 Anisocytosis 1+ (Not Present) A 11/30/17 04:50 Microcytosis Present (Not Present) A 11/30/17 04:50 Macrocytosis Present (Not Present) A 11/30/17 04:50 ABG pCO2 54 mmHg (35-45) H 11/30/17 03:46 ABG pO2 79 mmHg (85-104) L 11/30/17 03:46 ABG HCO3 33 mEq/L (21-27) H 11/30/17 03:46 ABG Total CO2 34 mEq/L (20-26) H 11/30/17 03:46 ABG Base Excess 6 mEq/L (-2 to 3) H 11/30/17 03:46 Potassium 3.1 mEq/L (3.5-5.1) L 11/30/17 04:50 Carbon Dioxide 30 mEq/L (23-29) H 11/30/17 04:50 Calcium 7.8 mg/dL (8.6-10.3) L 11/30/17 04:50 Magnesium 1.3 mg/dL (1.6-2.6) L 11/30/17 04:50 Direct Bilirubin 0.3 mg/dL (0.0-0.2) H 11/30/17 04:50 ALT 4 Units/L (7-52) L 11/30/17 04:50 Troponin I 0.05 ng/mL (< 0.04) H* 11/30/17 11:30 Serum Total Protein 6.3 g/dL (6.4-8.9) L 11/30/17 04:50 Albumin 2.8 g/dL (3.5-5.7) L 11/30/17 04:50 Albumin/Globulin Ratio 0.8 (1.1-2.2) L 11/30/17 04:50 - Microbiology Findings Microbiology Findings: Microbiology, Last 48 Hours 11/30/17 08:10 Legionella Antigen - Final Urine,[place] Streptococcus pneumoniae Antigen (M - Final - Clinical Findings Intake & Output: Intake & Output 11/30/17 11/30/17 11/30/17 07:59 15:59 23:59 Intake Total 1250 / 1250 100 / 100 Output Total 50 / 50 25 / 25 Balance 1200 / 1200 75 / 75 Weight 106.2 kg - Attending Attestation I saw and evaluated this patient and my medical decision-making was reviewed with the Resident Physician. I agree with the documented findings, disposition and treatment plan as described except to the extent set forth below. We independently had [id number] contact with the patient Patient seen and examined at bedside Labs, radiology, chart personally reviewed. Management was reviewed during multidisciplinary critical care rounds. PRESENTATION TEAM MEMBER:Patient is conscious oriented x 3 has episodic drowsiness most likely due to septic encephalopathy . Pulm: Patient has acceptable V/Q mismatch low suspicion for pneumonia can be complicated by a hydrostatic pulmonary edema cannot diuresis as she was resuscitated with fluids for sepsis continue to monitor with oxygen supplementation. If her respiratory distress worsen try to put her back on BiPAP. Cards: Patient is hemodynamically stable has borderline blood pressure when she came in due to underlying sepsis most likely due to cellulitis of the right leg. Troponins trending down most likely due to supply demand mismatch. FEN-GI: Advance diet as tolerated Renal: Labs and output reviewed ID: Patient Came with sepsis likely source is cellulitis to continue the broad -spectrum antibiotics patient had streptococcal infection in the past Heme/Onc: Labs reviewed Endo: Glucose Monitored Integ/MSK: Skin Care per routine ICU Nursing Protocol to prevent ulcers. Lines: All lines examined without evidence of infection : Dispo: To remain in the ICU if need bed patient can be transferred to medical telemetry . CODE: Full Code
[2017-11-30] MEDS: Cefepime HCl 2,000 MG in Water for inj. (sterile) 20 ML 20 ML IVP SCH ×2 (17:23→23:32)
[2017-11-30] MEDS: Acetaminophen 325 MG TABLET PO PRN (21:35)
[2017-11-30] MEDS ORDERED: Levofloxacin 750 MG/150 ML 750 MG/150 ML BAG IVPB SCH (23:59)
[2017-12-01] MEDS: *HR* OxyCODONE/APAP 10/325 TABLET PO PRN ×3 (00:36→12:03)
[2017-12-01] MEDS: Acetaminophen 325 MG TABLET PO PRN (02:59)
[2017-12-01] MEDS: Ipratropium/Albuterol Neb 3 ML IH SCH ×6 (03:22→23:22)
[2017-12-01 03:56] LABS: Basophils % 0.2 %
[2017-12-01 03:57] LABS: Hemoglobin 9.5 g/dL (11.5-15.4); Immature Granulocytes % 0.8 % (0-4); Lymphocytes % 2.9 %; Mean Corpuscular HGB Conc 27.9 g/dL (31.6-35.5); Mean Corpuscular Hemoglobin 24.1 pg (28.0-33.3); Mean Corpuscular Volume 86.3 fL (83.0-100.0); Monocytes # 0.7 K/mcL (0.0-1.3); Monocytes % 3.5 %; Neutrophils # 17.3 K/mcL (1.6-8.9); Platelet Count 119 K/mcL (140-400); Red Blood Count 3.94 M/mcL (3.82-4.97); Segmented Neutrophils % 92.6 %
[2017-12-01 04:05] LABS: BUN/Creatinine Ratio 18 (6-26); Blood Urea Nitrogen 11 mg/dL (8-23); Calcium 8.1 mg/dL (8.6-10.3); Carbon Dioxide 23 mEq/L (23-29); Chloride 105 mEq/L (98-107); Glucose 129 mg/dL (70-105); Magnesium 1.8 mg/dL (1.6-2.6); Osmolality,Calculated 285 (280-300); Potassium 3.7 mEq/L (3.5-5.1); Sodium 137 mEq/L (136-145); eGFR For Non-African Americans > 60 (> 60)
[2017-12-01 04:15] LABS: Lymphocytes # 0.5 K/mcL (0.6-4.6)
[2017-12-01] MEDS: Insulin LISPRO 300 UNITS/3 ML VIAL SQ SCH ×4 (05:48→21:46)
[2017-12-01] MEDS: *HR* Heparin 5,000 UNIT/ML VIAL SQ SCH (05:50)
[2017-12-01 06:31] LABS: Anisocytosis 1+ (Not Present); Platelet Estimate Normal (Normal)
[2017-12-01] MEDS: MetroNIDAZOLE 500 MG/100 ML 500 MG/100 ML BAG IVPB SCH ×2 (07:54→17:02)
[2017-12-01] MEDS: Cefepime HCl 2,000 MG in Water for inj. (sterile) 20 ML 20 ML IVP SCH ×2 (07:55→17:01)
--- NOTE | 2017-12-01 09:42 | Pulmonology Progress Note ---
<Flavio Garnett - Last Filed: 12/01/17 09:43> Date of Encounter: 12/01/17 Time of Encounter: 09:42 Assessment and Plan (1) Acute and chronic respiratory failure Current Visit: No Status: Acute Likely due to sepsis secondary to pneumonia Patient tachypnic with labored breathing upon initial admission Patient tolerated BiPAP well + DuoNebs and magnesium sulfate-spoke to patient about continuing BiPAP at home Patient currently resting comfortably, speaking in full sentences, alert and oriented 3 Nasal cannula has been weaned to 3 L/m down from 4 L/m yesterday-patient is on 3 L/m at home Qualifiers: Respiratory failure complication: hypoxia and hypercapnia Qualified Code(s) : J96.21 - Acute and chronic respiratory failure with hypoxia; J96.22 - Acute and chronic respiratory failure with hypercapnia (2) Sepsis Current Visit: No Status: Acute Likely secondary to pneumonia Also consider septic arthritis as a potential cause Nonvascular ultrasound of the right legs showed 2 discrete areas of fluid collection above the right knee and in the lateral aspect of the lower leg-no discernible abscess Blood culture showed 1/2 gram positive bacteria-likely contaminated Patient initially tachycardic, tachypneic with labored breathing, and febrile upon initial admission Patient started on vancomycin, cefepime, metronidazole, levofloxacin for broad coverage Levofloxacin stopped on December 01 Patient is currently afebrile, resting comfortably, speaking in complete sentences, alert and oriented 3, non-tachycardic, nontachypneic, on 3 L/m via nasal cannula. Respiratory panel negative Urine culture for Legionella and strep pneumonia were negative Qualifiers: Sepsis type: sepsis due to unspecified organism Qualified Code(s): A41.9 - Sepsis, unspecified organism (3) DM type 2 (diabetes mellitus, type 2) Current Visit: No Status: Chronic History of diabetes mellitus type 2 Insulin corrective medium dose lispro subcutaneous every 6 hours Hypoglycemic protocol Continue to monitor Qualifiers: Diabetes mellitus care home insulin use: without care home use Diabetes mellitus complication status: without complication Qualified Code(s): E11.9 - Type 2 diabetes mellitus without complications (4) Pneumonia Current Visit: No Status: Acute Diffuse opacities on chest x-ray with rhonchorous lung sounds Patient is afebrile, we will continue to monitor leukocytosis White blood cell count currently at 18.7 - down from 32.3 on admission Levaquin stopped - continue vancomycin, cefepime, metronidazole Sputum cultures pending Qualifiers: Pneumonia type: due to unspecified organism Laterality: unspecified laterality Lung location: unspecified part of lung Qualified Code(s): J18.9 - Pneumonia, unspecified organism (5) Obesity Current Visit: No Status: Acute Patient BMI is 39.0 Lifestyle modifications including sleep hygiene and weight loss highly recommended. Qualifiers: Obesity type: due to excess calories Obesity classification: adult class 3 (BMI >= 40) Serious obesity comorbidity presence: with serious comorbidity Body mass index: unspecified BMI Qualified Code(s): E66.01 - Morbid (severe) obesity due to excess calories (6) DVT prophylaxis Current Visit: Yes Status: Acute Patient is on home Xarelto-hold for hospital admission 5000 units subcutaneous heparin twice a day for DVT prophylaxis Subjective Principal diagnosis: Sepsis Interval history: The patient is a 61-year-old female presenting to [facility] for difficulty breathing. Patient records indicate that EMS was called to her home on the evening of November 29 for what was believed to be possible elevated blood pressure. The patient was found to be minimally responsive and febrile, with tachypnea. Patient's family was present at the scene but were unwilling or unable to give any further information. Medical history obtained from patient has been inconsistent and difficult to obtain. Mental status has progressively increased since admission and patient is currently able to speak in short sentences and respond to questioning with supplemental oxygen. Objective PUL Vital signs: Last Vital Signs Temp 98.7 F 12/01/17 07:48 Pulse 100 12/01/17 07:30 Resp 20 12/01/17 08:26 BP 111/52 12/01/17 07:30 Pulse Ox 96 12/01/17 08:26 Results - Laboratory Findings CBC and BMP: 12/01/17 03:30 12/01/17 03:30 ABG ABG pH 7.39 pH Units (7.32-7.45) 11/30/17 03:46 ABG pCO2 54 mmHg (35-45) H 11/30/17 03:46 ABG pO2 79 mmHg (85-104) L 11/30/17 03:46 ABG O2 Saturation 95 % (95-98) 11/30/17 03:46 Abnormal lab findings: Abnormal lab results WBC 18.7 K/mcL (4.3-11.1) H 12/01/17 03:30 Hgb 9.5 g/dL (11.5-15.4) L 12/01/17 03:30 Hct 34.0 % (35.3-44.9) L 12/01/17 03:30 MCH 24.1 pg (28.0-33.3) L 12/01/17 03:30 MCHC 27.9 g/dL (31.6-35.5) L 12/01/17 03:30 RDW 19.0 % (11.5-14.5) H 12/01/17 03:30 Plt Count 119 K/mcL (140-400) L 12/01/17 03:30 Band Neutrophils % 8.0 % (0-4) H 11/30/17 04:50 Neutrophils # 17.3 K/mcL (1.6-8.9) H 12/01/17 03:30 Lymphocytes # 0.5 K/mcL (0.6-4.6) L 12/01/17 03:30 Nucleated RBCs/100 WBC 0.1 /100 WBC (0) H 11/30/17 04:50 Polychromasia 1+ (Not Present) A 11/30/17 04:50 Anisocytosis 1+ (Not Present) A 12/01/17 03:30 Microcytosis Present (Not Present) A 11/30/17 04:50 Macrocytosis Present (Not Present) A 11/30/17 04:50 ABG pCO2 54 mmHg (35-45) H 11/30/17 03:46 ABG pO2 79 mmHg (85-104) L 11/30/17 03:46 ABG HCO3 33 mEq/L (21-27) H 11/30/17 03:46 ABG Total CO2 34 mEq/L (20-26) H 11/30/17 03:46 ABG Base Excess 6 mEq/L (-2 to 3) H 11/30/17 03:46 Glucose 129 mg/dL (70-105) H 12/01/17 03:30 POC Glucose 133 mg/dL (70-99) H 11/30/17 23:28 Calcium 8.1 mg/dL (8.6-10.3) L 12/01/17 03:30 Direct Bilirubin 0.3 mg/dL (0.0-0.2) H 11/30/17 04:50 ALT 4 Units/L (7-52) L 11/30/17 04:50 Troponin I 0.05 ng/mL (< 0.04) H* 11/30/17 11:30 Serum Total Protein 6.3 g/dL (6.4-8.9) L 11/30/17 04:50 Albumin 2.8 g/dL (3.5-5.7) L 11/30/17 04:50 Albumin/Globulin Ratio 0.8 (1.1-2.2) L 11/30/17 04:50 - Microbiology Findings Microbiology Findings: Microbiology, Last 48 Hours 11/30/17 08:10 Legionella Antigen - Final Urine,[place] Streptococcus pneumoniae Antigen (M - Final - Clinical Findings Intake & Output: Intake & Output 11/30/17 12/01/17 12/01/17 23:59 07:59 15:59 Intake Total 370 / 370 270 / 270 Output Total 475 / 475 Balance -105 / -105 270 / 270 Consult Discharge Plan - Plan Referrals: NONE,PCP [Primary Care Provider] - <Urbano Tracy S - Last Filed: 12/01/17 12:07> Date of Encounter: 12/01/17 Objective PUL Vital signs: Last Vital Signs Temp 98.7 F 12/01/17 07:48 Pulse 100 12/01/17 07:30 Resp 20 12/01/17 08:26 BP 111/52 12/01/17 07:30 Pulse Ox 96 12/01/17 08:26 Results - Laboratory Findings CBC and BMP: 12/01/17 03:30 12/01/17 03:30 ABG ABG pH 7.39 pH Units (7.32-7.45) 11/30/17 03:46 ABG pCO2 54 mmHg (35-45) H 11/30/17 03:46 ABG pO2 79 mmHg (85-104) L 11/30/17 03:46 ABG O2 Saturation 95 % (95-98) 11/30/17 03:46 Abnormal lab findings: Abnormal lab results WBC 18.7 K/mcL (4.3-11.1) H 12/01/17 03:30 Hgb 9.5 g/dL (11.5-15.4) L 12/01/17 03:30 Hct 34.0 % (35.3-44.9) L 12/01/17 03:30 MCH 24.1 pg (28.0-33.3) L 12/01/17 03:30 MCHC 27.9 g/dL (31.6-35.5) L 12/01/17 03:30 RDW 19.0 % (11.5-14.5) H 12/01/17 03:30 Plt Count 119 K/mcL (140-400) L 12/01/17 03:30 Band Neutrophils % 8.0 % (0-4) H 11/30/17 04:50 Neutrophils # 17.3 K/mcL (1.6-8.9) H 12/01/17 03:30 Lymphocytes # 0.5 K/mcL (0.6-4.6) L 12/01/17 03:30 Nucleated RBCs/100 WBC 0.1 /100 WBC (0) H 11/30/17 04:50 Polychromasia 1+ (Not Present) A 11/30/17 04:50 Anisocytosis 1+ (Not Present) A 12/01/17 03:30 Microcytosis Present (Not Present) A 11/30/17 04:50 Macrocytosis Present (Not Present) A 11/30/17 04:50 ABG pCO2 54 mmHg (35-45) H 11/30/17 03:46 ABG pO2 79 mmHg (85-104) L 11/30/17 03:46 ABG HCO3 33 mEq/L (21-27) H 11/30/17 03:46 ABG Total CO2 34 mEq/L (20-26) H 11/30/17 03:46 ABG Base Excess 6 mEq/L (-2 to 3) H 11/30/17 03:46 Glucose 129 mg/dL (70-105) H 12/01/17 03:30 POC Glucose 133 mg/dL (70-99) H 11/30/17 23:28 Calcium 8.1 mg/dL (8.6-10.3) L 12/01/17 03:30 Direct Bilirubin 0.3 mg/dL (0.0-0.2) H 11/30/17 04:50 ALT 4 Units/L (7-52) L 11/30/17 04:50 Troponin I 0.05 ng/mL (< 0.04) H* 11/30/17 11:30 Serum Total Protein 6.3 g/dL (6.4-8.9) L 11/30/17 04:50 Albumin 2.8 g/dL (3.5-5.7) L 11/30/17 04:50 Albumin/Globulin Ratio 0.8 (1.1-2.2) L 11/30/17 04:50 - Microbiology Findings Microbiology Findings: Microbiology, Last 48 Hours 11/30/17 08:10 Legionella Antigen - Final Urine,[place] Streptococcus pneumoniae Antigen (M - Final - Clinical Findings Intake & Output: Intake & Output 11/30/17 12/01/17 12/01/17 23:59 07:59 15:59 Intake Total 370 / 370 270 / 270 Output Total 475 / 475 Balance -105 / -105 270 / 270 - Attending Attestation - Attending Attestation I saw and evaluated this patient and my medical decision-making was reviewed with the Resident Physician. I agree with the documented findings, disposition and treatment plan as described except to the extent set forth below. We independently had [id number] contact with the patient Patient seen and examined at bedside Labs, radiology, chart personally reviewed. Management was reviewed during multidisciplinary critical care rounds. STONE UNLOADER:Patient is conscious oriented x 3 has episodic drowsiness most likely due to septic encephalopathy . Pulm: Patient has acceptable V/Q mismatch low suspicion for pneumonia can be complicated by a hydrostatic pulmonary edema cannot diuresis as she was resuscitated with fluids for sepsis continue to monitor with oxygen supplementation. If her respiratory distress worsen try to put her back on BiPAP 12/01 patient used her BiPAP overnight but she is not very excited to use BiPAP long-term I told her this will help her managing her lung and heart together and also reduce her readmission. Patient should go home on are senior living on BiPAP and just patient should have a reasonable diuretic regimen when she goes home and patient also should get good education about salt water restriction is all this strategies only can help to reduce her readmissions for acute on chronic hypoxic and hypercapnic respiratory failure . Cards: Patient is hemodynamically stable has borderline blood pressure when she came in due to underlying sepsis most likely due to cellulitis of the right leg. Troponins trending down most likely due to supply demand mismatch. 10/4 patient is hemodynamically stable sepsis slowly getting better with appropriate antibiotics FEN-GI: Advance diet as tolerated Renal: Labs and output reviewed ID: Patient Came with sepsis likely source is cellulitis to continue the broad -spectrum antibiotics patient had streptococcal infection in the past With her current blood culture grows probably a contaminant like Staphylococcus Epidermis repeat blood cultures for time being to continue the broad-spectrum antibiotic Heme/Onc: Labs reviewed Endo: Glucose Monitored Integ/MSK: Skin Care per routine ICU Nursing Protocol to prevent ulcers. Lines: All lines examined without evidence of infection : Dispo: patient can be transferred to telemetry. CODE: Full Code
--- NOTE | 2017-12-01 09:59 | Sepsis Event Note ---
Sepsis Reassessment Note - Evaluation Sepsis Screen: Sepsis Risk Current Stage of Sepsis: ruled out Reason for ruling out sepsis: The patient is currently afebrile, nontachypneic, non-tachycardic, white blood cell count 32.3 on admission-we will continue to monitor in response to antibiotic coverage Possible Source of Sepsis: pulmonary - Focused Exam Date of Encounter: 11/30/17 Time of Encounter: 10:00 Vital Signs: Vital Signs Temp Pulse Resp BP Pulse Ox 12/01/17 08:26 20 96 12/01/17 07:48 98.7 F 12/01/17 07:30 100 20 111/52 97 12/01/17 06:00 94 13 121/44 96 12/01/17 05:00 99 11 131/63 100 12/01/17 04:00 107 18 106/45 100 12/01/17 03:22 16 94 12/01/17 03:00 96 16 135/85 96 12/01/17 02:00 98 18 119/53 93 12/01/17 01:00 96 18 128/53 96 12/01/17 00:40 20 138/60 97 12/01/17 00:00 101 19 129/71 92 11/30/17 23:30 98 11/30/17 23:22 16 116/55 95 11/30/17 23:00 97 13 126/56 91 11/30/17 22:00 101 10 129/57 95 Respiratory Exam: Present: CTA bilaterally. Absent: respiratory distress, accessory muscle use, decreased breath sounds, prolonged expiratory phas, distant breath sounds Cardiovascular Exam: Present: RRR, S1, S2. Absent: murmur, rubs, gallop, click , S3, S4 Capillary Refill: < 2 seconds Peripheral Pulse Strength: 3+ normal Peripheral Pulse Location: Pedal Skin Exam: unremarkable
[2017-12-01] MEDS ORDERED: Furosemide 40 MG/4 ML VIAL IVP ONE (12:12)
[2017-12-01] MEDS ORDERED: *HR* Metoprolol 5 MG/5 ML VIAL IVP ONE (12:13)
[2017-12-01] MEDS ORDERED: Furosemide 40 MG/4 ML VIAL ONE (12:13)
[2017-12-01] MEDS ORDERED: *HR* Metoprolol 5 MG/5 ML VIAL IVP PRN (12:13)
[2017-12-01] MEDS ORDERED: Aminoglycoside Consult 1 EACH MC ONE (14:10)
[2017-12-01] MEDS ORDERED: *HR* OxyCODONE/APAP 10/325 TABLET PO PRN (17:16)
[2017-12-01] MEDS ORDERED: Naloxone 0.4 MG/ML INJ IVP PRN (17:16)
[2017-12-01] MEDS ORDERED: Acetaminophen 325 MG TABLET PO PRN (17:16)
[2017-12-01] MEDS ORDERED: Dextrose Gel 15 GM/37.5 ML TUBE PO PRN ×2 (17:16)
[2017-12-01] MEDS ORDERED: D5% in Water 1,000 ML IVC PRN (17:16)
[2017-12-01] MEDS ORDERED: *HR* Dextrose 50 % in Water (Syg) 50 ML SYRINGE IVP PRN (17:16)
[2017-12-01] MEDS: Methocarbamol 750 MG TABLET PO SCH (21:56)
[2017-12-01] MEDS: Gabapentin 300 MG CAPSULE PO SCH ×2 (21:56→23:37)
[2017-12-01] MEDS: Nystatin OINT 15 GM TUBE TP SCH (23:36)
[2017-12-01] MEDS: Nystatin POWDER 30 GM BOTTLE TP SCH (23:36)
[2017-12-02] MEDS: MetroNIDAZOLE 500 MG/100 ML 500 MG/100 ML BAG IVPB SCH ×2 (00:12→08:13)
[2017-12-02] MEDS: Cefepime HCl 2,000 MG in Water for inj. (sterile) 20 ML 20 ML IVP SCH ×2 (00:12→08:12)
[2017-12-02] MEDS: Nystatin OINT 15 GM TUBE TP SCH ×4 (00:13→21:24)
[2017-12-02] MEDS: Nystatin POWDER 30 GM BOTTLE TP SCH ×4 (00:13→21:24)
[2017-12-02] MEDS: Insulin LISPRO 300 UNITS/3 ML VIAL SQ SCH ×5 (02:03→16:56)
[2017-12-02] MEDS: Ipratropium/Albuterol Neb 3 ML IH SCH ×5 (03:51→23:51)
[2017-12-02 07:09] LABS: Hematocrit 35.5 % (35.3-44.9); Mean Corpuscular HGB Conc 28.2 g/dL (31.6-35.5); Mean Corpuscular Hemoglobin 23.7 pg (28.0-33.3); Mean Corpuscular Volume 84.1 fL (83.0-100.0); Platelet Count 123 K/mcL (140-400); Red Blood Count 4.22 M/mcL (3.82-4.97); Red Cell Distribution Width 18.9 % (11.5-14.5)
[2017-12-02 07:17] LABS: BUN/Creatinine Ratio 18 (6-26); Blood Urea Nitrogen 9 mg/dL (8-23); Calcium 8.7 mg/dL (8.6-10.3); Carbon Dioxide 25 mEq/L (23-29); Chloride 101 mEq/L (98-107); Glucose 75 mg/dL (70-105); Magnesium 1.8 mg/dL (1.6-2.6); Osmolality,Calculated 275 (280-300); Potassium 3.6 mEq/L (3.5-5.1); Sodium 134 mEq/L (136-145); eGFR For Non-African Americans > 60 (> 60)
[2017-12-02] MEDS ORDERED: Acetaminophen 325 MG TABLET PO PRN (07:23)
[2017-12-02] MEDS: Methocarbamol 750 MG TABLET PO SCH ×3 (08:10→21:22)
[2017-12-02] MEDS: Cholecalciferol (D-3) 1,000 UNIT TABLET PO SCH (08:11)
[2017-12-02] MEDS: Ascorbic Acid 500 MG TABLET PO SCH (08:11)
[2017-12-02] MEDS: Isosorbide MONOnitrate (24 HR) 60 MG TAB.ER.24H PO SCH (08:11)
[2017-12-02] MEDS: Aspirin Enteric Coated 81 MG Tablet PO SCH (08:11)
[2017-12-02] MEDS: Metoprolol XL (24 HR) Succ 50 MG TAB.ER.24H PO SCH (08:11)
[2017-12-02] MEDS: *HR* Rivaroxaban 10 MG TABLET PO SCH (08:12)
[2017-12-02] MEDS: Gabapentin 300 MG CAPSULE PO SCH ×3 (08:12→21:22)
[2017-12-02] MEDS: Bumetanide 1 MG TABLET PO SCH (08:12)
[2017-12-02] MEDS: *HR* OxyCODONE/APAP 10/325 TABLET PO PRN ×3 (08:12→21:22)
[2017-12-02 08:39] LABS: Anisocytosis 1+ (Not Present); Hypochromasia Present (Not Present); Platelet Estimate Slight Decrease (Normal)
[2017-12-02 08:40] LABS: Lymphocytes # 1.3 K/mcL (0.6-4.6); Monocytes # 0.8 K/mcL (0.0-1.3); Neutrophils # 10.8 K/mcL (1.6-8.9)
[2017-12-02] MEDS ORDERED: Calcium 600 + Vit D PO SCH (09:00)
--- NOTE | 2017-12-02 10:16 | Internal Med Progress Note ---
Hospitalist Progress Note - Encounter Date of Encounter: 12/02/17 Time of Encounter: 10:15 - Subjective Interval History: Patient is seen and evaluated at the bedside. 61-year-old female with past medical history of DM 2, hypertension, chronic pain , atrial fibrillation who was admitted to the intensive care unit for management of sepsis secondary to pneumonia, acute on chronic respiratory failure, right lower extremity cellulitis She reports her breathing is improving, however she continues to complain of chronic pain. Preliminary blood cultures negative, urine culture grew pansensitive VRE - Exam Vitals: Temp Pulse Resp BP Pulse Ox 97.9 F 140 18 111/66 95 12/02/17 08:27 12/02/17 08:27 12/02/17 08:27 12/02/17 08:27 12/02/17 08:27 Exam: Gen: Sitting out of bed, in no form of distress, morbidly obese HEENT: Moist oral mucosa, not cyanotic Chest: CTAB CVS: HR and BP WNL, S1, S2 only, no m/g/r Abdomen: Flat, soft, not tender, no palpably enlarged organs Extremities: Bilateral pitting pedal edema, R> L erythema, tenderness, chronic venous stasis changes neuro: Awake, alert and oriented X3, no focal deficits - Assessment and Plan (1) Atrial fibrillation Current Visit: Yes Status: Chronic Assessment and Plan: Heart rate now controlled on current medications, continue home xarelto Hb is stable (2) Diastolic heart failure Current Visit: Yes Status: Chronic Assessment and Plan: Euvolemic at this time ,extremities with chronic venous stasis changes (3) DM type 2 (diabetes mellitus, type 2) Current Visit: Yes Status: Chronic Assessment and Plan: FS ACHS ADA diet Insulin, SQ correctional, continue to monitor (4) Sepsis Current Visit: Yes Status: Acute Assessment and Plan: Source of sepsis is multiple, urinary tract infection with VRE, right lower extremity cellulitis with history of strep infection in the past, blood culture from [facility] showed gram-positive cocci in 1 over 2 bottles likely contaminant, PNA on chest imaging Patient is currently afebrile, resting comfortably, speaking in complete sentences, alert and oriented 3, non-tachycardic, nontachypneic, on 3 L/m via nasal cannula. Respiratory panel negative Urine culture for Legionella and strep pneumonia were negative Patient has received 4 days of Flagyl cefepime and vancomycin. Discontinue vancomycin today Start Unasyn for streptococcal and anaerobic coverage as well as VRE coverage, add Levaquin for pseudomonal coverage Repeat blood cultures from for no growth to date (5) Pneumonia Current Visit: Yes Status: Acute Assessment and Plan: Diffuse opacities on chest x-ray with rhonchorous lung sounds Patient is afebrile, leukocytosis is improving Continue current antibiotics sputum culture negative (6) Acute and chronic respiratory failure Current Visit: Yes Status: Acute Assessment and Plan: Likely due to pneumonia and sepsis. Patient tachypnea and respiratory distress on presentation. She is now on O2 by nasal canula at 3L per minute, home dose is 2L /min, wean as tolerated (7) DVT prophylaxis Current Visit: Yes Status: Acute Assessment and Plan: Patient on Xarelto at home. Resumed same (8) Cellulitis Current Visit: Yes Status: Acute Assessment and Plan: mgt as in sepsis no abscess collection - Time Spent with Patient Total time spent is greater than 50% in coordination of care (as documented) at patient's floor/unit and/or counseling patient: Plan of Care Discussed with: patient Internal Medicine: Result - Labs CBC & Chem 7: 12/02/17 05:46 12/02/17 05:46 Labs: Short CBC 12/02/17 Range/Units 05:46 WBC 12.8 H (4.3-11.1) K/mcL Hgb 10.0 L (11.5-15.4) g/dL Hct 35.5 (35.3-44.9) % Plt Count 123 L (140-400) K/mcL Neutrophils # 10.8 H (1.6-8.9) K/mcL BMP 12/02/17 05:46 Sodium 134 L Potassium 3.6 Chloride 101 Carbon Dioxide 25 BUN 9 Creatinine 0.51 L Glucose 75 Calcium 8.7 - ABG Interpretation ABG results: ABG ABG pH 7.39 pH Units (7.32-7.45) 11/30/17 03:46 ABG pCO2 54 mmHg (35-45) H 11/30/17 03:46 ABG pO2 79 mmHg (85-104) L 11/30/17 03:46 ABG O2 Saturation 95 % (95-98) 10/03/18 03:46 Consult Discharge Plan - Plan Referrals: NONE,PCP [Primary Care Provider] - (1) Atrial fibrillation Qualifiers: Atrial fibrillation type: paroxysmal Qualified Code(s): I48.0 - Paroxysmal atrial fibrillation (2) Diastolic heart failure Qualifiers: Heart failure chronicity: chronic Qualified Code(s): I50.32 - Chronic diastolic (congestive) heart failure (3) DM type 2 (diabetes mellitus, type 2) Qualifiers: Diabetes mellitus intermission coordinator insulin use: without senior living use Diabetes mellitus complication status: without complication Qualified Code(s): E11.9 - Type 2 diabetes mellitus without complications (4) Sepsis Qualifiers: Sepsis type: sepsis due to unspecified organism Qualified Code(s): A41.9 - Sepsis, unspecified organism (5) Pneumonia Qualifiers: Pneumonia type: due to unspecified organism Laterality: unspecified laterality Lung location: unspecified part of lung Qualified Code(s): J18.9 - Pneumonia, unspecified organism (6) Acute and chronic respiratory failure Qualifiers: Respiratory failure complication: hypoxia and hypercapnia Qualified Code(s): J96.21 - Acute and chronic respiratory failure with hypoxia; J96.22 - Acute and chronic respiratory failure with hypercapnia (8) Cellulitis Qualifiers: Site of cellulitis: extremity Site of cellulitis of extremity: lower extremity Laterality: unspecified laterality Qualified Code(s): L03.119 - Cellulitis of unspecified part of limb
[2017-12-02] MEDS: Ampicillin/Sulbactam 3,000 MG in 0.9 % Sodium Chloride Mini Bag 100 ML IVPB SCH ×3 (11:18→23:55)
[2017-12-02] MEDS: levoFLOXacin 750 MG TABLET PO SCH (11:18)
[2017-12-02] MEDS ORDERED: Insulin LISPRO 300 UNITS/3 ML VIAL SQ SCH (21:00)
[2017-12-03] MEDS: *HR* OxyCODONE/APAP 10/325 TABLET PO PRN ×2 (02:47→09:25)
[2017-12-03 05:16] LABS: Basophils % 0.5 %; Mean Corpuscular Hemoglobin 23.7 pg (28.0-33.3)
[2017-12-03 05:17] LABS: Eosinophils # 0.1 K/mcL (0.0-0.6); Hematocrit 33.8 % (35.3-44.9); Hemoglobin 9.5 g/dL (11.5-15.4); Immature Granulocytes % 0.6 % (0-4); Lymphocytes % 15.3 %; Mean Corpuscular HGB Conc 28.1 g/dL (31.6-35.5); Mean Corpuscular Volume 84.3 fL (83.0-100.0); Monocytes # 0.6 K/mcL (0.0-1.3); Monocytes % 8.6 %; Neutrophils # 4.8 K/mcL (1.6-8.9); Platelet Count 111 K/mcL (140-400); Red Blood Count 4.01 M/mcL (3.82-4.97); Red Cell Distribution Width 18.4 % (11.5-14.5)
[2017-12-03 05:21] LABS: BUN/Creatinine Ratio 16 (6-26); Blood Urea Nitrogen 8 mg/dL (8-23); Calcium 8.4 mg/dL (8.6-10.3); Carbon Dioxide 27 mEq/L (23-29); Chloride 103 mEq/L (98-107); Glucose 134 mg/dL (70-105); Magnesium 1.5 mg/dL (1.6-2.6); Osmolality,Calculated 286 (280-300); Potassium 3.3 mEq/L (3.5-5.1); Sodium 138 mEq/L (136-145); eGFR For Non-African Americans > 60 (> 60)
[2017-12-03 05:54] LABS: Hypochromasia Present (Not Present); Platelet Estimate Slight Decrease (Normal)
[2017-12-03] MEDS: Ampicillin/Sulbactam 3,000 MG in 0.9 % Sodium Chloride Mini Bag 100 ML IVPB SCH ×2 (06:10→11:52)
[2017-12-03] MEDS: Ipratropium/Albuterol Neb 3 ML IH SCH (07:29)
[2017-12-03] MEDS: Bumetanide 1 MG TABLET PO SCH (08:23)
[2017-12-03] MEDS: Isosorbide MONOnitrate (24 HR) 60 MG TAB.ER.24H PO SCH (08:23)
[2017-12-03] MEDS: Gabapentin 300 MG CAPSULE PO SCH (08:23)
[2017-12-03] MEDS: Insulin LISPRO 300 UNITS/3 ML VIAL SQ SCH ×2 (08:23→11:53)
[2017-12-03] MEDS: Metoprolol XL (24 HR) Succ 50 MG TAB.ER.24H PO SCH (08:24)
[2017-12-03] MEDS: Aspirin Enteric Coated 81 MG Tablet PO SCH (08:24)
[2017-12-03] MEDS: Ascorbic Acid 500 MG TABLET PO SCH (08:24)
[2017-12-03] MEDS: Methocarbamol 750 MG TABLET PO SCH (08:24)
[2017-12-03] MEDS: Cholecalciferol (D-3) 1,000 UNIT TABLET PO SCH (08:24)
[2017-12-03] MEDS: levoFLOXacin 750 MG TABLET PO SCH (08:24)
[2017-12-03] MEDS: *HR* Rivaroxaban 10 MG TABLET PO SCH (08:24)
[2017-12-03 11:36] VITALS: BP 99/51
--- NOTE | 2017-12-03 11:47 | Discharge Summary ---
- NOTES TO OUTPATIENT PROVIDER Notes to Outpatient Provider: 61-year-old female with past medical history of DM 2, hypertension, chronic pain, atrial fibrillation who was admitted to the intensive care unit for management of sepsis secondary to pneumonia, acute on chronic respiratory failure, right lower extremity cellulitis. Respiratory panel negative, Urine culture for Legionella and strep pneumonia were negative, one bottle in 2 of blood culture from [facility] with GPR-(contaminant) as repeat blood cultures were negative, urine culture with werner-sensitive VRE. Patient received 4 days of IV Flagyl, Cefeoime and vanco and was transitioned to Unasy and levaquin 12/02, she has continued to improve on this regimen and O2 requirement is at her baseline level, renal function has been stable on current medications. She has chronic venous stasis and is prone to recurrent cellulitis , but she has wound care and home services at home, She was recommended for placement by [facility] but patient refused and states she has services at home and would rather go home. She understands the risks of fall and will go homewith services. She is discharged home on 5 more days of levaquin and augmentin to complete 10 days total of antibiotics for PNA, Cellulitis and UTI. Her sepsis has resolved and WBC is WNL. She is counselled on tobacco cessation, she does not plan to quit anytime soon. Follow up with PCP Orders not resulted at time of discharge: Pending orders 11/30/17 03:23 Culture,Sputum with Gram Stain [RM] Stat 12/01/17 11:38 Culture,Blood [BC] Stat 12/04/17 04:00 Basic Metabolic Panel AM 0400 Complete Blood Count [HEME] AM 0400 Magnesium AM 0400 12/05/17 04:00 Basic Metabolic Panel AM 0400 Complete Blood Count [HEME] AM 0400 Magnesium AM 0400 Date of Encounter: 12/03/17 Time of Encounter: 11:47 - Discharge Diagnosis (1) Atrial fibrillation Priority: Secondary Status: Chronic Qualifiers: Atrial fibrillation type: paroxysmal Qualified Code(s): I48.0 - Paroxysmal atrial fibrillation (2) Diastolic heart failure Priority: Secondary Status: Chronic Qualifiers: Heart failure chronicity: chronic Qualified Code(s): I50.32 - Chronic diastolic (congestive) heart failure (3) DM type 2 (diabetes mellitus, type 2) Priority: Secondary Status: Chronic Qualifiers: Diabetes mellitus fpc insulin use: without termite treater helper use Diabetes mellitus complication status: without complication Qualified Code(s): E11.9 - Type 2 diabetes mellitus without complications (4) Sepsis Priority: Primary Status: Resolved Qualifiers: Sepsis type: sepsis due to unspecified organism Qualified Code(s): A41.9 - Sepsis, unspecified organism (5) Pneumonia Priority: Primary Status: Acute Qualifiers: Pneumonia type: due to unspecified organism Laterality: unspecified laterality Lung location: unspecified part of lung Qualified Code(s): J18.9 - Pneumonia, unspecified organism (6) Acute and chronic respiratory failure Priority: Primary Status: Resolved Qualifiers: Respiratory failure complication: hypoxia and hypercapnia Qualified Code(s) : J96.21 - Acute and chronic respiratory failure with hypoxia; J96.22 - Acute and chronic respiratory failure with hypercapnia (7) DVT prophylaxis Priority: Primary Status: Resolved (8) Cellulitis Priority: Primary Status: Acute Qualifiers: Site of cellulitis: extremity Site of cellulitis of extremity: lower extremity Laterality: unspecified laterality Qualified Code(s): L03.119 - Cellulitis of unspecified part of limb Hospital course: Ms. Finch is a 61 year old female 61-year-old female with past medical history of DM 2, hypertension, chronic pain , atrial fibrillation who was admitted to the intensive care unit for management of sepsis secondary to pneumonia, acute on chronic respiratory failure, right lower extremity cellulitis. Respiratory panel negative, Urine culture for Legionella and strep pneumonia were negative, one bottle in 2 of blood culture from [facility] with GPR-(contaminant) as repeat blood cultures were negative, urine culture with werner-sensitive VRE. Patient received 4 days of IV Flagyl, Cefeoime and vanco and was transitioned to Unasy and levaquin 12/02, she has continued to improve on this regimen and O2 requirement is at her baseline level, renal function has been stable on current medications. She has chronic venous stasis and is prone to recurrent cellulitis, but she has wound care and home services at home, She was recommended for placement by [facility] but patient refused and states she has services at home and would rather go home. She understands the risks of fall and will go homewith services. She is discharged home on 5 more days of levaquin and augmentin to complete 10 days total of antibiotics for PNA, Cellulitis and UTI. Her sepsis has resolved and WBC is WNL. She is counselled on tobacco cessation, she does not plan to quit anytime soon. Follow up with PCP Discharge discussed with: patient, nurse Time spent discussing smoking cessation with patient: 3 to 10 minutes - Time Spent with Patient Total time spent providing and/or coordinating discharge services: Less than 30 minutes - Discharge Medications Prescriptions: Amoxicillin/Clavulanate [Augmentin] 875 mg PO BIDWM #10 tablet levoFLOXacin [Levaquin] 750 mg PO DAILY #5 tablet Home Medications: Rivaroxaban [Xarelto] 20 mg PO DAILY 09/15/17 [History] Ascorbic Acid [C-500] 500 mg PO DAILY #30 tablet 09/29/17 [Rx] Aspirin [Lo-Dose Aspirin EC] 81 mg PO DAILY 10/13/17 [History] Atorvastatin [Lipitor] 40 mg PO HS 10/13/17 [History] Cetirizine HCl [Zyrtec] 10 mg PO DAILY 10/13/17 [History] Gabapentin [Neurontin] 600 mg PO TID 10/13/17 [History] Glimepiride [Amaryl] 4 mg PO DAILY 10/13/17 [History] Isosorbide MONOnitrate (24 HR) [Imdur] 60 mg PO DAILY 10/13/17 [History] Losartan [Cozaar] 25 mg PO DAILY 10/13/17 [History] Metoprolol Succinate [Toprol Xl] 100 mg PO DAILY 10/13/17 [History] Pantoprazole Sodium [Protonix] 40 mg PO DAILY 10/13/17 [History] Saxagliptin HCl [Onglyza] 5 mg PO DAILY 10/13/17 [History] Methocarbamol [Robaxin-750] 750 mg PO TID 11/29/17 [History] Albuterol Sulfate [Ventolin Hfa] 2 puff IH Q4HR PRN 11/30/17 [History] Bisacodyl [Dulcolax] 5 mg PO BID PRN 11/30/17 [History] Bumetanide 4 mg PO 1400 11/30/17 [History] Bumetanide 6 mg PO QAM 11/30/17 [History] Calcium Carbonate/Vitamin D3 [Calcium 600 + Vit D Tablet] 1 tab PO DAILY [History] Ferrous Sulfate [Iron] 325 mg PO DAILY 11/30/17 [History] Montelukast [Singulair] 10 mg PO DAILY 11/30/17 [History] Nystatin OINT [Mycostatin] 1 appl TP TID 11/30/17 [History] Nystatin POWDER [Nystop] 1 appl TP TID 11/30/17 [History] OxyCODONE/APAP 10/325 [Percocet 10/325 MG] 1 tab PO Q6H PRN 11/30/17 [History] Tiotropium Br/Olodaterol HCl [Stiolto Respimat Inhal [place]] 2 puff IH DAILY 05/15 [History] hydrOXYzine HCl [Hydroxyzine HCl] 25 mg PO TID 11/30/17 [History] Amoxicillin/Clavulanate [Augmentin] 875 mg PO BIDWM #10 tablet 12/03/17 [Rx] levoFLOXacin [Levaquin] 750 mg PO DAILY #5 tablet 12/03/17 [Rx] Allergies/Adverse Reactions: 3 Allergy/AdvReac Type Severity Reaction Status Date / Time lisinopril AdvReac Cough Verified 11/01/17 00:50 morphine AdvReac Nausea Verified 11/01/17 00:50 Penicillins AdvReac Nausea Verified 11/01/17 00:50 ranitidine [From Zantac] AdvReac Diarrhea Verified 11/01/17 00:50 Date of admission: 11/30/17 03:33 Primary care physician: PCP NONE Consults: 12/01/17 07:49 Consult to Physical Therapy [CONS] Routine Comment: Evaluate, develop and implement POC Reason for Consult: Back pain, sedentary lifestyle, physical deconditioning Does patient have active BEDREST order?: No Is patient medically & hemodynamically stable?: Yes 12/01/17 08:24 Consult to Occupational Therapy [CONS] Routine Comment: Evaluate, develop and implement POC Reason for Consult: sedentary lifestyle, physical deconditioning Does patient have active BEDREST order?: No Is patient medically & hemodynamically stable?: Yes 12/01/17 09:38 Consult to Invasive Line Access Team [CONS] Routine Reason for Consult: Poor access Line Type: EPIV 12/01/17 15:29 Consult to [facility] [CONS] Routine Reason for SW Consult: ECF PLACEMENT Discharging clinician: Joshua Newman Anticipated date of discharge: 12/03/17 - Constitutional Vitals: Temp Pulse Resp BP Pulse Ox 97.8 F 73 19 99/51 96 12/03/17 11:35 12/03/17 11:35 12/03/17 11:35 12/03/17 11:35 12/03/17 11:35 General appearance: Present: A&O X 3, morbidly obese, pleasant, no acute distress Exam: Gen: Sitting out of bed, in no form of distress, morbidly obese HEENT: Moist oral mucosa, not cyanotic Chest: CTAB CVS: HR and BP WNL, S1, S2 only, no m/g/r Abdomen: Flat, soft, not tender, no palpably enlarged organs Extremities: Bilateral pitting pedal edema, R> L erythema, tenderness, chronic venous stasis changes neuro: Awake, alert and oriented X3, no focal deficits - Patient Status Disposition: Home Health Service Condition: Good Functional capacity at discharge: uses cane/walker Overall status at discharge: patient is progressing back to baseline - Discharge Instructions Instructions: Amoxicillin/Clavulanate Potassium (By mouth), Levofloxacin (By mouth) Follow Up With: NONE,PCP [Primary Care Provider] - - Diet and Activity Activity: resume usual activities as tolerated, wear oxygen at all times Diet: advance to your usual diet, diabetic diet, low fat, low cholesterol, low salt diet
--- NOTE | 2017-12-03 11:48 | Physician Discharge Referral ---
Home Health/Hosp Referral Info Transfer to: Home Health Attending Provider: Pamela Newman Provider in Charge Post Discharge: PCP - Diagnosis (1) Atrial fibrillation Priority: Secondary Status: Chronic (2) Diastolic heart failure Priority: Secondary Status: Chronic (3) DM type 2 (diabetes mellitus, type 2) Priority: Secondary Status: Chronic (4) Sepsis Priority: Primary Status: Resolved (5) Pneumonia Priority: Primary Status: Acute (6) Acute and chronic respiratory failure Priority: Primary Status: Resolved (7) DVT prophylaxis Priority: Primary Status: Resolved (8) Cellulitis Priority: Primary Status: Acute - Respiratory Orders Oxygen / L per min Smoking Cessation: Smoking cessation has been advised. For more information, call the [employer] Quit Line at [phone]. - Diet/Nutrition Diet/Nutrition Orders: No Added Salt (QUANG), Cardiac, No Concentrated Sweets - Activity Activity Orders: Up ad kenny - Services Needed Following services are medically necessary services: Nursing, Home Health Aide, Physical Therapy, Occupational Therapy - Transfer Medications Prescriptions: Amoxicillin/Clavulanate [Augmentin] 875 mg PO BIDWM #10 tablet levoFLOXacin [Levaquin] 750 mg PO DAILY #5 tablet Home Medications: Rivaroxaban [Xarelto] 20 mg PO DAILY 09/15/17 [History] Ascorbic Acid [C-500] 500 mg PO DAILY #30 tablet 09/29/17 [Rx] Aspirin [Lo-Dose Aspirin EC] 81 mg PO DAILY 10/13/17 [History] Atorvastatin [Lipitor] 40 mg PO HS 10/13/17 [History] Cetirizine HCl [Zyrtec] 10 mg PO DAILY 10/13/17 [History] Gabapentin [Neurontin] 600 mg PO TID 10/13/17 [History] Glimepiride [Amaryl] 4 mg PO DAILY 10/13/17 [History] Isosorbide MONOnitrate (24 HR) [Imdur] 60 mg PO DAILY 10/13/17 [History] Losartan [Cozaar] 25 mg PO DAILY 10/13/17 [History] Metoprolol Succinate [Toprol Xl] 100 mg PO DAILY 10/13/17 [History] Pantoprazole Sodium [Protonix] 40 mg PO DAILY 10/13/17 [History] Saxagliptin HCl [Onglyza] 5 mg PO DAILY 10/13/17 [History] Methocarbamol [Robaxin-750] 750 mg PO TID 11/29/17 [History] Albuterol Sulfate [Ventolin Hfa] 2 puff IH Q4HR PRN 11/30/17 [History] Bisacodyl [Dulcolax] 5 mg PO BID PRN 11/30/17 [History] Bumetanide 4 mg PO 1400 11/30/17 [History] Bumetanide 6 mg PO QAM 11/30/17 [History] Calcium Carbonate/Vitamin D3 [Calcium 600 + Vit D Tablet] 1 tab PO DAILY [History] Ferrous Sulfate [Iron] 325 mg PO DAILY 11/30/17 [History] Montelukast [Singulair] 10 mg PO DAILY 11/30/17 [History] Nystatin OINT [Mycostatin] 1 appl TP TID 11/30/17 [History] Nystatin POWDER [Nystop] 1 appl TP TID 11/30/17 [History] OxyCODONE/APAP 10/325 [Percocet 10/325 MG] 1 tab PO Q6H PRN 11/30/17 [History] Tiotropium Br/Olodaterol HCl [Stiolto Respimat Inhal [place]] 2 puff IH DAILY 05/15 [History] hydrOXYzine HCl [Hydroxyzine HCl] 25 mg PO TID 11/30/17 [History] Amoxicillin/Clavulanate [Augmentin] 875 mg PO BIDWM #10 tablet 12/03/17 [Rx] levoFLOXacin [Levaquin] 750 mg PO DAILY #5 tablet 12/03/17 [Rx] Allergies/Adverse Reactions: 3 Allergy/AdvReac Type Severity Reaction Status Date / Time lisinopril AdvReac Cough Verified 11/01/17 00:50 morphine AdvReac Nausea Verified 11/01/17 00:50 Penicillins AdvReac Nausea Verified 11/01/17 00:50 ranitidine [From Zantac] AdvReac Diarrhea Verified 11/01/17 00:50 Certification: Further, I certify that my clinical findings support that this patient is homebound (i.e. absences from home require considerable and taxing effort and are for medical reasons or [employer] services or infrequently or short duration when for other reasons) because: Homebound Reason: Patient requires assistance of a person or device to safely leave home Attestation: My signature below is to certify that this patient is under my care and that I, or nurse practitioner, or a physician's radiology practitioner assistant working with me, has a face-to -face encounter with this patient.
[2017-12-03] MEDS: Nystatin OINT 15 GM TUBE TP SCH (11:52)
[2017-12-03] MEDS: Nystatin POWDER 30 GM BOTTLE TP SCH (11:53)
[2017-12-03] MEDS ORDERED: Magnesium Oxide 400 MG TABLET PO SCH (12:15)
--- NOTE | 2017-12-05 16:13 | Electrocardiograph Report ---
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
== END 2017-12-03 14:11 | disposition home health service (06) | DRG 871 ==
LOC: ICNU 03:33 → SUATTDRO 03:33 → 2ANU 12-01 20:16
PROVIDERS: ADMIT Family Medicine; ATTEND Internal Medicine

== ENCOUNTER 2018-08-29 06:43 | Inpatient (IN) ==
--- NOTE | 2018-08-29 04:10 | Internal Med History&Physical ---
<Abdelrahman Miller - Last Filed: 08/29/18 04:14> Date of Encounter: 08/29/18 Time of Encounter: 04:14 Internal Medicine - H&P: HPI Chief complaint: Lethargy Admitted From: Hospital to Hospital Transfer Plans for Post Hospital Care: Home History of present illness: Ms. Finch is a 62 year old female with past medical history of atrial fibrillation, CHF, COPD, CAD, CVA, diabetes, GERD, hyperlipidemia, hypertension and others presents to [facility] emergency room with complaint of lethargy, fatigue, and "not feeling good" 1 week. Patient states that she is unable to elaborate further but just did not feel like herself. She has felt confused over this time. No family is present at bedside during my interview. The [facility] emergency room, patient's family stated that she has not been acting appropriate and that her confusion has been getting worse over the past 3 days. Patient denies any symptoms including fevers, chills, chest pain, difficulty breathing, urinary symptoms including dysuria, frequency, urgency. She does admit to some nausea without vomiting as well as a nonproductive cough which is at her baseline. She also admits to bilateral lower extremity swelling which again she has at [facility]. She was noted to have a headache at the [facility] emergency room but is not complaining of one now. In [facility], vital signs were significant for a temperature of 102.5, heart rate 114, respiratory rate 18, blood pressure 98/79 and she was tolerating 93% of oxygen on room air. Laboratory results were significant for leukocytosis of 29.9 with 18% bands, hypokalemia at 3.3, mild hyponatremia at 135, acute kidney injury with creatinine of 1.9-10 lactic acid 2.0. ABG was relatively unremarkable. Urinalysis was suggestive of infection. CT of head was negative for acute process. She did receive a 2 L normal saline bolus, 1 dose of Rocephin and vancomycin. Blood cultures were obtained as she met sepsis criteria. She was also noted to be in A. fib with RVR and received 20 mg of Cardizem at which point her heart rate did improve with that and fluids. She was also noted to have poor living conditions per the family. Family stated that patient's home had been infested with bedbugs and patient is now living with family at this time. At the time of my interview, patient states that she is feeling a little bit better. She was alert and oriented 3 and able to answer questions appropri ately however does appear lethargic. No family is present at bedside. Past medical history as above Past surgical history: Appendectomy, , hysterectomy, orthopedic Social history: One pack per day smoker, denies alcohol or drug use. Lives at home with sister and . Family history: Noncontributory Past Med Surg Social Fam HX - Past Medical History Medical history: arthritis, atrial fibrillation, cancer, CHF, COPD, coronary artery disease, CVA, diabetes, GERD, hyperlipidemia, hypertension, migraine, myocardial infarction, osteoporosis, other Additional medical history: SPINAL STENOSIS with sciatica right worsening left. 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 right elbow sx. masectomy right side. left knee replacement. - Social History Smoking Status: Current every day smoker Smokeless Tobacco Status: No Alcohol use: none Drug use: none - Family History Mother Living Status: Father Adopted: [place]: [place] Family Member Ethnicity: Non- Living Status: Age at : 65 Hx Family Cardiac Disorders: Yes ([place]) Hx Family Endocrine Disorder: Yes Internal Medicine - H&P: Meds Rivaroxaban [Xarelto] 20 mg PO DAILY 09/15/17 [History] Ascorbic Acid [C-500] 500 mg PO DAILY #30 tablet 09/29/17 [Rx] Aspirin [Lo-Dose Aspirin EC] 81 mg PO DAILY 10/13/17 [History] Cetirizine HCl [Zyrtec] 10 mg PO DAILY 10/13/17 [History] Gabapentin [Neurontin] 600 mg PO TID 10/13/17 [History] Glimepiride [Amaryl] 4 mg PO DAILY 10/13/17 [History] Isosorbide MONOnitrate (24 HR) [Imdur] 60 mg PO DAILY 10/13/17 [History] Losartan [Cozaar] 25 mg PO DAILY 10/13/17 [History] Metoprolol Succinate [Toprol Xl] 100 mg PO DAILY 10/13/17 [History] Saxagliptin HCl [Onglyza] 5 mg PO DAILY 10/13/17 [History] Methocarbamol [Robaxin-750] 750 mg PO TID 11/29/17 [History] Albuterol Sulfate [Ventolin Hfa] 2 puff IH Q4HR PRN 11/30/17 [History] Bisacodyl [Dulcolax] 5 mg PO BID PRN 11/30/17 [History] Bumetanide 4 mg PO 1400 11/30/17 [History] Bumetanide 6 mg PO QAM 11/30/17 [History] Calcium Carbonate/Vitamin D3 [Calcium 600 + Vit D Tablet] 1 tab PO DAILY 11/30/17 [History] Ferrous Sulfate [Iron] 325 mg PO DAILY 11/30/17 [History] Montelukast [Singulair] 10 mg PO DAILY 11/30/17 [History] Albuterol Neb [Proventil Neb] 2.5 mg IH AD PRN 12/18/17 [History] Magnesium 250 mg PO DAILY 08/28/18 [History] Allergy/AdvReac Type Severity Reaction Status Date / Time lisinopril AdvReac Cough Verified 08/28/18 21:09 morphine AdvReac Nausea Verified 08/28/18 21:09 Penicillins AdvReac Nausea Verified 08/28/18 21:09 ranitidine [From Zantac] AdvReac Diarrhea Verified 08/28/18 21:09 All Systems PM: A 10-system review of systems was performed and is negative for pertinent findings except as documented above in the HPI. Review of systems: - Constitutional: Admits to fatigue. Denies fevers, chills, weight loss - Head/Neck: Admits to KIM. Denies neck stiffness - EENT: Denies rhinorrhea, congestion, sore throat, odynaphagia - CVS: Denies chest pain, palpitations, SAHNI, orthopnea, edema, PND, - Pulm: Admits to cough. Denies SOB, sputum, hematemesis, wheezing - GI: admits to nausea. Denies abdominal pain, anorexia, vomiting, diarrhea, constipation, melena - : Denies dysuria, increased frequency, urgency, hematuria, - Skin: Rashes. Denies ulcers, color changes, - Neuro: Denies paresthesias, focal deficits, ataxia, - Constitutional Vitals: Temp Pulse Resp BP Pulse Ox 99.1 F 104 18 109/51 90 08/29/18 02:24 08/29/18 02:24 08/29/18 02:24 08/29/18 02:24 08/29/18 02:24 Exam: Gen.: Vitals noted. No acute distress. AAOx3, resting comfortably in bed. Lethargic appearing , morbidly obese HEENT: oropharynx clear, Normocephalic, atraumatic, mildly dry mucous membranes Cardiac: RRR, no murmur, +S1/S2, No BLE edema Pulmonary: Coarse breath sounds diffusely, equal chest expansion, unlabored breathing Abdomen: soft, nontender, BS noted, no guarding, no palpable HSM : Enamorado catheter in place, oliverio urine with sediment, no CVA tenderness Skin: warm and dry, diffuse scaled lesions covering upper extremities, chest, abdomen, legs. Some erythema on RLE with associated non pitting edema. MSK: no joint swelling noted, gait no assessed while in bed. Non tender calf or clubbing Neuro: A&Ox3, moves all extremities, no focal deficits, sensation intact, Psych: Appropriate mood and behavior, AOx3 - Assessment and Plan (1) Severe sepsis Current Visit: Yes Status: Acute Assessment and plan: - 3/4 SIRS criteria with Temp 102.5, HR 114, WBC 29.9 with bands - Lactic acid of 2.0 - Evidence of end organ damage of MALISSA - Suspected source: UTI with possible cellulitis additional - Suspected organism: unclear - Blood and urine cultures obtained in [facility], pending - Previous culture in urine of VRE, GBS, E.coli, Proteus - Imaging obtained was CT head which was negative. - UA shows evidence of infection. - Given ceftriaxone and vanc in [facility] x 1 dose - Status post 2 L fluids in [facility] which will cover her 30mL/kg Plan - Will Continue fluids at 100/hr x 2L additionally - Antibiotics of linezolid and ceftriaxone based on previous cultures and MALISSA - Monitor urine and blood cultures - Repeat lactic acid stat (2) Urinary tract infection Current Visit: Yes Status: Acute Assessment and plan: as above Qualifiers: Urinary tract infection type: acute cystitis Hematuria presence: with hematuria Qualified Code(s): N30.01 - Acute cystitis with hematuria (3) MALISSA (acute kidney injury) Current Visit: Yes Status: Acute Assessment and plan: Evidence of MALISSA with BUN/Cr of 23/1.92 - Baseline Cr appears to be around 0.5 - Likely secondary to Sepsis as above - Has received 2L fluids Plan - Continue fluids per sepsis as above - Avoid nephrotoxins. Did receive dose of vanc in ED - Renal dosing. - Trend labs (4) Insect bite Current Visit: Yes Status: Chronic Assessment and plan: - Evidence of numerous insect bites, suspect bed bugs per patient history - patient reportedly living with family but suspect very poor living conditions - SW consulted Qualifiers: Encounter type: initial encounter Site of insect bite: unspecified site Qualified Code(s): W57.XXXA - Bitten or stung by nonvenomous insect and other nonvenomous arthropods, initial encounter (5) Atrial fibrillation Current Visit: Yes Status: Chronic Assessment and plan: - Chronic per history - Rate has improved with fluids and 20 mg cardizem in ED - Suspect that she is tachycardic secondary to sepsis - Will treat underlying infection and hydrate - Continue to monitor - Home meds include xarelto, however not yet confirmed. Plan - Continue home meds once reconciled Qualifiers: Atrial fibrillation type: paroxysmal Qualified Code(s): I48.0 - Paroxysmal atrial fibrillation (6) Hypertension Current Visit: Yes Status: Chronic Assessment and plan: - Well controlled at this time - Continue meds once reconciled. Qualifiers: Hypertension type: essential hypertension Qualified Code(s): I10 - Essential (primary) hypertension (7) Obesity Current Visit: Yes Status: Chronic Assessment and plan: advised diet and exercise changes as outpatient Qualifiers: Obesity type: due to excess calories Obesity classification: adult class 3 (BMI >= 40) Serious obesity comorbidity presence: with serious comorbidity Body mass index: unspecified BMI Qualified Code(s): E66.01 - Morbid (severe) obesity due to excess calories (8) DM type 2 (diabetes mellitus, type 2) Current Visit: Yes Status: Chronic Assessment and plan: BS 169 in [facility] A1c of 7.1 in 2018 Will order ADA diet, SSI low Repeat A1c Qualifiers: Diabetes mellitus intermediate designer insulin use: without longterm use Diabetes mellitus complication status: without complication Qualified Code(s): E11.9 - Type 2 diabetes mellitus without complications (9) COPD (chronic obstructive pulmonary disease) Current Visit: Yes Status: Chronic Assessment and plan: does not appear to be in acute exacerbation continue home inhalers once reconciled Qualifiers: COPD type: unspecified COPD Qualified Code(s): J44.9 - Chronic obstructive pulmonary disease, unspecified (10) Hypokalemia Current Visit: Yes Status: Acute Assessment and plan: K of 3.3 in [facility] Will repeat labs and replace as necessary (11) Anemia Current Visit: Yes Status: Chronic Assessment and plan: Hgb of 10.1 baseline appears to be from 9-11 possibly secondary to chronic disease No signs or symptoms of bleed continue to monitor Qualifiers: Anemia type: iron deficiency Iron deficiency anemia type: unspecified iron deficiency Qualified Code(s): D50.9 - Iron deficiency anemia, unspecified (12) Cellulitis Current Visit: Yes Status: Acute Assessment and plan: - Erythema noted on RLE - patient is septic however higher suspicion for UTI - Neurovascularly intact. - Will cover with Abx as above which should cover both - Nontender, low suspicion for DVT. Already on AC - Continue to monitor Qualifiers: Site of cellulitis: extremity Site of cellulitis of extremity: lower extremity Laterality: left Qualified Code(s): L03.116 - Cellulitis of left lower limb (13) DVT prophylaxis Current Visit: Yes Status: Acute Assessment and plan: continue xarelto once reconciled. - Time Spent With Patient Total time spent is greater than 50% in coordination of care (as documented) at patient's floor/unit and/or counseling patient: <Michael Winchester - Last Filed: 08/29/18 06:48> Date of Encounter: 08/29/18 Time of Encounter: 06:00 - Constitutional Constitutional: fever(s), no chills, no night sweats - EENT Eyes: no change in vision Nose, mouth and throat: no nasal congestion, no sore throat - Cardiovascular Cardiovascular ROS IM: palpitations, no chest pain, no dyspnea - Respiratory Respiratory: cough, no chest congestion, no excessive phlegm production, no change in phlegm color, no pain with cough - Gastrointestinal Gastrointestinal: nausea, vomiting, no abdominal pain, no diarrhea, no hemate mesis, no hematochezia, no melena - Genitourinary Genitourinary: dysuria, no flank pain, no hematuria - Musculoskeletal Musculoskeletal ROS IM: no arthralgias, no back pain - Integumentary Integumentary IM: pruritus, sores, no rash, no jaundice - Neurological Neurological ROS: no convulsions, no disequilibrium, no dizziness, no focal weakness, no frequent falls, no headache(s) - Psychiatric Psychiatric: no anxiety, no depression - Endocrine Endocrine IM: no polydipsia, no polyuria - Allergic/Immunologic Allergic/Immunologic: no GI upset with certain foods - Constitutional Vitals: Temp Pulse Resp BP Pulse Ox 98.3 F 101 17 101/43 97 08/29/18 05:45 08/29/18 05:45 08/29/18 05:45 08/29/18 05:45 08/29/18 05:45 General appearance: Present: mild distress, A&O X 3 - Head Head exam: Present: normal inspection - Eye Eye exam: Present: PERRL. Absent: scleral icterus - ENT ENT exam: Present: mucous membranes dry, normal exam, normal oropharynx - Neck Neck exam general surgery: Present: supple, trachea midline - Respiratory Respiratory exam: Present: rhonchi. Absent: chest wall tenderness, prolonged expiratory phase, rales, respiratory distress, wheezes - Cardiovascular Cardiovascular exam: Present: distant heart sounds, +S1, +S2, systolic murmur. Absent: diastolic murmur - GI/Abdominal GI/Abdominal exam: Present: normal bowel sounds, soft. Absent: guarding, hepatomegaly, mass, rebound, splenomegaly, tenderness - Extremities Exam Extremities exam: Present: full ROM, normal capillary refill, pedal edema (right leg >>> left leg), warm, radial pulses palpable and symmetrical. Absent: calf tenderness, joint swelling, tenderness - Back Exam Back exam: Absent: CVA tenderness (L), CVA tenderness (R) - Neurological Exam Neurological exam: Present: alert, CN II-XII intact, oriented X3, no focal deficits - Psychiatric Psychiatric exam: Present: flat affect - Skin Skin exam: Present: dry, erythema (RLE), intact, rash (scabbed rash throughout body with concern for multiple bus bites), warm - Time Spent With Patient Total time spent is greater than 50% in coordination of care (as documented) at patient's floor/unit and/or counseling patient: - Attending Attestation I discussed the patient TUNICA-BILOXI, PMH, ROS, lab data, and exam findings with Dr Miller. I then saw and examined patient independently as well. Pt has lab evidence to suggest sever sepsis, but on exam she does not appear to be as ill. Irregardless, we will treat her as such, trend lactate, and follow clinically. Patient was fluid resuscitated at [facility]. I also noted she had asymmetrical swelling of her right leg >> left leg. I asked Dr. Miller to order BLE Dopplers to rule out DVT. Patient states she takes Xarelto at home, so the likelihood of DVT is low. Nonetheless, will proceed with Doppler exam. Other than my comments above and documented exam findings, I agree with Dr. Miller's assessment and plan.
[2018-08-29] MEDS: 0.9 % Sodium Chloride 1,000 ML IVC SCH ×2 (05:39→17:50)
[~2018-08-29 06:43] MED LIST: *HR* Dextrose 50 % in Water (Syg) 50 ML SYRINGE IVP PRN; D5% in Water 1,000 ML IVC PRN; Dextrose Gel 15 GM/37.5 ML TUBE PO PRN; Naloxone 0.4 MG/ML INJ IVP PRN; Ondansetron 4 MG/2 ML VIAL IVP PRN
[2018-08-29 08:14] LABS: Hemoglobin 9.3 g/dL (11.5-15.4)
[2018-08-29 08:16] LABS: VBG Ionized Calcium 0.93 mmol/L (1.15-1.35)
[2018-08-29 08:16] LABS: Hematocrit 32.5 % (35.3-44.9); Mean Corpuscular HGB Conc 28.6 g/dL (31.6-35.5); Mean Corpuscular Hemoglobin 21.5 pg (28.0-33.3); Mean Corpuscular Volume 75.2 fL (83.0-100.0); Mean Platelet Volume 11.8 fL (9.4-12.4); Platelet Count 180 K/mcL (140-400); Red Blood Count 4.32 M/mcL (3.82-4.97); Red Cell Distribution Width 16.6 % (11.5-14.5); White Blood Count 22.8 K/mcL (4.3-11.1)
[2018-08-29 08:35] LABS: Albumin 3.3 g/dL (3.5-5.7); Bilirubin,Total 0.3 mg/dL (0.3-1.0); Calcium 7.6 mg/dL (8.6-10.3); Globulin 3.2 g/dL (2.4-3.5); Total Protein 6.5 g/dL (6.4-8.9)
[2018-08-29] MEDS ORDERED: *HR* Rivaroxaban 10 MG TABLET PO SCH (09:00)
[2018-08-29 09:25] LABS: Estimated Average Glucose 229 mg/dl
[2018-08-29 09:35] LABS: Toxic Granulation Present (Not Present)
[2018-08-29 09:36] LABS: Platelet Estimate Normal (Normal)
[2018-08-29 09:37] LABS: Anisocytosis 1+ (Not Present); Basophilic Stippling 1+ (Not Present); Poikilocytosis 1+ (Not Present)
[2018-08-29 09:43] LABS: Lymphocytes # 1.8 K/mcL (0.6-4.6); Monocytes # 0.5 K/mcL (0.0-1.3); Neutrophils # 20.5 K/mcL (1.6-8.9)
[2018-08-29 09:44] LABS: Hypochromasia Present (Not Present)
[2018-08-29] MEDS: cefTRIAXone 1,000 MG in Water for inj. (sterile) 10 ML IVP SCH (10:07)
[2018-08-29] MEDS: Insulin LISPRO 300 UNITS/3 ML VIAL SQ SCH ×4 (10:08→20:30)
--- NOTE | 2018-08-29 12:04 | Event Note ---
Date of Encounter: 08/29/18 Time of Encounter: 08:00 Patient was seen and examined at bedside. Has no complaints. Reports that she is feeling much better since admission. She is inquiring about discharge and I discussed that she just came to the hospital around 4 AM so she will need IV antibiotics for sepsis. She understands. Currently she is wanting to sleep as she is been awake all night. She denies fever, chills, nausea, vomiting or diarrhea. She has no complaints, pain is controlled. vital signs reviewed Decreased breath sounds secondary to body habitus Irregularly irregular, S1 and S2 Skin: warm and dry, diffuse scaled lesions covering upper extremities, chest, abdomen, legs. Some erythema on RLE with associated non pitting edema ( rports its chronic) Assessment and plan Severe sepsis secondary to urinary tract infection and possibly right lower extremity cellulitis Acute renal failure was likely secondary to hypoperfusion from sepsis Bilateral skin lesions of the upper extremities secondary to bed bugs A. fib with RVR cellulitis of the right lower extremities acute encephalopathy most likely secondary to sepsis ruled out stroke - resolved currently Axox3 Blood cultures and process Continue with IV antibiotics Lactic acidosis resolved Continue with IV fluids Avoid nephrotoxic medications Continue with home rate control medications once reconciled, continuous around toe. Will get DVT study of the right lower extremities to rule out DVT Ct head - negative for acute stroke rest of the management as per HPI if she develops hypotension consider placing central line and starting levophed and calling ICU
[2018-08-29] MEDS: Acetaminophen 325 MG TABLET PO PRN (12:21)
[2018-08-29] MEDS ORDERED: Albuterol 2.5 MG/3 ML NEBULIZER IH PRN (15:03)
[2018-08-29] MEDS: Metoprolol XL (24 HR) Succ 50 MG TAB.ER.24H PO SCH (17:59)
[2018-08-30] MEDS: Acetaminophen 325 MG TABLET PO PRN (03:39)
[2018-08-30 04:55] LABS: Basophils # 0.1 K/mcL (0.0-0.2); Basophils % 0.4 %; Eosinophils # 0.1 K/mcL (0.0-0.6); Eosinophils % 0.6 %; Hematocrit 30.8 % (35.3-44.9); Hemoglobin 9.2 g/dL (11.5-15.4); Immature Granulocytes % 0.6 % (0-4); Lymphocytes # 0.9 K/mcL (0.6-4.6); Lymphocytes % 7.1 %; Mean Corpuscular HGB Conc 29.9 g/dL (31.6-35.5); Mean Corpuscular Hemoglobin 22.4 pg (28.0-33.3); Mean Corpuscular Volume 74.9 fL (83.0-100.0); Monocytes # 0.6 K/mcL (0.0-1.3); Platelet Count 175 K/mcL (140-400); Red Blood Count 4.11 M/mcL (3.82-4.97); Red Cell Distribution Width 17.1 % (11.5-14.5); Segmented Neutrophils % 86.3 %; White Blood Count 12.1 K/mcL (4.3-11.1)
[2018-08-30 05:05] LABS: Neutrophils # 10.4 K/mcL (1.6-8.9)
[2018-08-30 05:19] LABS: BUN/Creatinine Ratio 23 (6-26); Blood Urea Nitrogen 14 mg/dL (8-23); Calcium 7.8 mg/dL (8.6-10.3); Carbon Dioxide 22 mEq/L (23-29); Chloride 107 mEq/L (98-107); Glucose 179 mg/dL (70-105); Magnesium 1.9 mg/dL (1.6-2.6); Osmolality,Calculated 293 (280-300); Potassium 3.5 mEq/L (3.5-5.1); Sodium 139 mEq/L (136-145); eGFR For African Americans > 60 (> 60); eGFR For Non-African Americans > 60 (> 60)
[2018-08-30] MEDS: 0.9 % Sodium Chloride 1,000 ML IVC SCH (05:26)
[2018-08-30 06:16] LABS: Anisocytosis 1+ (Not Present); Polychromasia 1+ (Not Present)
[2018-08-30 06:17] LABS: Hypochromasia Present (Not Present); Ovalocytes 1+ (Not Present); Platelet Estimate Normal (Normal)
[2018-08-30] MEDS ORDERED: Aspirin Enteric Coated 81 MG Tablet PO SCH (09:00)
[2018-08-30] MEDS: cefTRIAXone 1,000 MG in Water for inj. (sterile) 10 ML IVP SCH (09:58)
[2018-08-30] MEDS: Insulin LISPRO 300 UNITS/3 ML VIAL SQ SCH ×4 (09:58→20:52)
[2018-08-30] MEDS: Isosorbide MONOnitrate (24 HR) 60 MG TAB.ER.24H PO SCH (09:59)
[2018-08-30] MEDS: Metoprolol XL (24 HR) Succ 50 MG TAB.ER.24H PO SCH (09:59)
[2018-08-30] MEDS: Ascorbic Acid 500 MG TABLET PO SCH (09:59)
[2018-08-30] MEDS: Cholecalciferol (D-3) 1,000 UNIT TABLET PO SCH (09:59)
[2018-08-30] MEDS: Loratadine 10 MG TABLET PO SCH (09:59)
[2018-08-30] MEDS: Magnesium Oxide 400 MG TABLET PO SCH (09:59)
[2018-08-30] MEDS ORDERED: hydrOXYzine pamoate 25 MG CAPSULE PO PRN (15:59)
[2018-08-30] MEDS ORDERED: Ipratropium/Albuterol Neb 3 ML IH PRN (16:18)
[2018-08-30] MEDS: Lactobacillus 1 EACH CAP.SPRINK PO SCH ×2 (16:49→21:02)
--- NOTE | 2018-08-30 20:42 | Internal Med Progress Note ---
Hospitalist Progress Note - Encounter Date of Encounter: 08/30/18 Time of Encounter: 11:00 - Subjective Interval History: Ms Finch denies any further episodes of dysuria. She does confirm that home is infested with bed bugs however she stated that she has a passport services and the home is currently being fumigated. - Exam Vitals: Temp Pulse Resp BP Pulse Ox 98.0 F 81 18 166/70 90 08/30/18 19:37 08/30/18 19:37 08/30/18 19:37 08/30/18 19:37 08/30/18 19:37 Exam: GENERAL: Obese female NAD, A&O x3, pleasant and conversant SKIN: No skin lesions or rashes, non-jaundiced EYES: EOMI, PERRLA, no sclera icterus HENT: Head atraumatic, no facial asymmetry, frontal and maxillary sinus non- tender, normal hearing, oropharynx and mucosa moist and without any exudates NECK: No cervical lymphadenopathy, trachea midline, thyroid is palpable does not appear enlarged LUNGS: vesicular breath sounds, clear to auscultation, no wheeze, rhonchi, rales or crackles. Non labored respirations HEART: Normal rate and rhythm, no murmurs or rubs ABDOMEN: soft, non-tender, non-distended, bowel sounds x 4 normoactive EXTRMITIES: Left lower extremity cellulitis appears to be receding, No LE edema, pedal pulses 1+ and radial pulses 2 + and equal bilaterally NEURO: Speech and comprehension appears intact. PSYCH: Cooperative, non- anxious or irritable, mood and affect is appropriate - Assessment and Plan (1) Severe sepsis Current Visit: Yes Status: Acute Assessment and Plan: Likely resolve her WBC trended down from 22.8 total 12.1, she is afebrile. Continue current antibiotics (2) Urinary tract infection Current Visit: Yes Status: Acute Assessment and Plan: Likely the underlying reason the patient presented with sepsis improving plan as above will DC Enamorado catheter (3) MALISSA (acute kidney injury) Current Visit: Yes Status: Acute Assessment and Plan: Improvement noted on serum creatinine normalized (4) DVT prophylaxis Current Visit: Yes Status: Acute Assessment and Plan: Patient already on anticoagulation therapy with Xarelto (5) Anemia Current Visit: Yes Status: Chronic Assessment and Plan: Continue ferrous sulfate patient denies any melena hematochezia might need outpatient follow-up with colonoscopy (6) Atrial fibrillation Current Visit: Yes Status: Chronic Assessment and Plan: Chronic and stable continues xarelto patient is rate controlled (7) COPD (chronic obstructive pulmonary disease) Current Visit: Yes Status: Chronic Assessment and Plan: Stable and chronic this is no COPD exacerbation continue current home medicatio ns (8) DM type 2 (diabetes mellitus, type 2) Current Visit: Yes Status: Chronic Assessment and Plan: Continue insulin per protocol, bedside Accu-Cheks (9) Obesity Current Visit: Yes Status: Chronic Assessment and Plan: Continue to encourage lifestyle changes diet and exercise - Time Spent with Patient Total time spent is greater than 50% in coordination of care (as documented) at patient's floor/unit and/or counseling patient: Internal Medicine: Result - Labs CBC & Chem 7: 08/30/18 04:23 08/30/18 04:23 Labs: Short CBC 08/30/18 Range/Units 04:23 WBC 12.1 H (4.3-11.1) K/mcL Hgb 9.2 L (11.5-15.4) g/dL Hct 30.8 L (35.3-44.9) % Plt Count 175 (140-400) K/mcL Neutrophils # 10.4 H (1.6-8.9) K/mcL BMP 08/30/18 04:23 Sodium 139 Potassium 3.5 Chloride 107 Carbon Dioxide 22 L BUN 14 Creatinine 0.62 Glucose 179 H Calcium 7.8 L Consult Discharge Plan - Plan Referrals: Neela Chavarria, NITRO MAN [Primary Care Provider] - (2) Urinary tract infection Qualifiers: Urinary tract infection type: acute cystitis Hematuria presence: with ashvin turia Qualified Code(s): N30.01 - Acute cystitis with hematuria (5) Anemia Qualifiers: Anemia type: iron deficiency Iron deficiency anemia type: unspecified iron deficiency Qualified Code(s): D50.9 - Iron deficiency anemia, unspecified (6) Atrial fibrillation Qualifiers: Atrial fibrillation type: paroxysmal Qualified Code(s): I48.0 - Paroxysmal atrial fibrillation (7) COPD (chronic obstructive pulmonary disease) Qualifiers: COPD type: unspecified COPD Qualified Code(s): J44.9 - Chronic obstructive pulmonary disease, unspecified (8) DM type 2 (diabetes mellitus, type 2) Qualifiers: Diabetes mellitus skilled nursing insulin use: without skilled nursing use Diabetes mellitus complication status: without complication Qualified Code(s): E11.9 - Type 2 diabetes mellitus without complications (9) Obesity Qualifiers: Obesity type: due to excess calories Obesity classification: adult class 3 (BMI >= 40) Serious obesity comorbidity presence: with serious comorbidity Body mass index: unspecified BMI Qualified Code(s): E66.01 - Morbid (severe) obesity due to excess calories
[2018-08-30] MEDS ORDERED: Insulin DETEMIR 100 UNIT/ML X5UNITS SQ SCH (21:00)
[2018-08-30] MEDS: Pregabalin 75 MG CAPSULE PO SCH (21:02)
[2018-08-30] MEDS: Budesonide Neb 0.5 MG/2 ML IH SCH (22:44)
[2018-08-31] MEDS ORDERED: Albuterol Neb 1.25 MG/3 ML VIAL IH PRN (07:09)
[2018-08-31 08:24] LABS: Hematocrit 30.4 % (35.3-44.9); Hemoglobin 8.6 g/dL (11.5-15.4); Mean Corpuscular HGB Conc 28.3 g/dL (31.6-35.5)
[2018-08-31 08:25] LABS: Basophils % 0.7 %; Eosinophils # 0.1 K/mcL (0.0-0.6); Eosinophils % 2.3 %; Immature Granulocytes % 1.6 % (0-4); Lymphocytes # 1.5 K/mcL (0.6-4.6); Lymphocytes % 27.6 %; Mean Corpuscular Hemoglobin 21.1 pg (28.0-33.3); Mean Corpuscular Volume 74.5 fL (83.0-100.0); Mean Platelet Volume 12.4 fL (9.4-12.4); Monocytes # 0.5 K/mcL (0.0-1.3); Monocytes % 9.2 %; Neutrophils # 3.2 K/mcL (1.6-8.9); Platelet Count 145 K/mcL (140-400); Red Blood Count 4.08 M/mcL (3.82-4.97); Red Cell Distribution Width 16.9 % (11.5-14.5); Segmented Neutrophils % 58.6 %; White Blood Count 5.5 K/mcL (4.3-11.1)
[2018-08-31] MEDS ORDERED: Aspirin Enteric Coated 81 MG Tablet PO SCH (09:00)
[2018-08-31] MEDS ORDERED: FLUoxetine 20 MG CAPSULE PO SCH (09:00)
[2018-08-31] MEDS ORDERED: Cholecalciferol (D-3) 1,000 UNIT TABLET PO SCH (09:00)
[2018-08-31] MEDS: Budesonide Neb 0.5 MG/2 ML IH SCH (09:59)
[2018-08-31 10:14] LABS: BUN/Creatinine Ratio 11 (6-26); Blood Urea Nitrogen 6 mg/dL (8-23); Calcium 8.6 mg/dL (8.6-10.3); Carbon Dioxide 24 mEq/L (23-29); Chloride 104 mEq/L (98-107); Glucose 135 mg/dL (70-105); Osmolality,Calculated 292 (280-300); Potassium 3.5 mEq/L (3.5-5.1); Sodium 141 mEq/L (136-145); eGFR For African Americans > 60 (> 60); eGFR For Non-African Americans > 60 (> 60)
[2018-08-31 11:09] VITALS: BP 144/75
[2018-08-31] MEDS: Pregabalin 75 MG CAPSULE PO SCH (11:27)
[2018-08-31] MEDS: Magnesium Oxide 400 MG TABLET PO SCH (11:27)
[2018-08-31] MEDS: Cholecalciferol (D-3) 1,000 UNIT TABLET PO SCH (11:27)
[2018-08-31] MEDS: Isosorbide MONOnitrate (24 HR) 60 MG TAB.ER.24H PO SCH (11:28)
[2018-08-31] MEDS: Ascorbic Acid 500 MG TABLET PO SCH (11:28)
[2018-08-31] MEDS: Loratadine 10 MG TABLET PO SCH (11:28)
[2018-08-31] MEDS: Metoprolol XL (24 HR) Succ 50 MG TAB.ER.24H PO SCH (11:28)
[2018-08-31] MEDS: Lactobacillus 1 EACH CAP.SPRINK PO SCH (11:28)
[2018-08-31] MEDS: cefTRIAXone 1,000 MG in Water for inj. (sterile) 10 ML IVP SCH (11:29)
[2018-08-31] MEDS: Insulin LISPRO 300 UNITS/3 ML VIAL SQ SCH ×2 (11:29→11:44)
--- NOTE | 2018-08-31 13:07 | Discharge Summary ---
- NOTES TO OUTPATIENT PROVIDER Notes to Outpatient Provider: Post hospital follow-up for sepsis secondary to UTI. She was noted microcytic type anemia and may likely need outpatient workup with colonoscopy. She may need CBC repeat in 1 week Date of Encounter: 08/31/18 Time of Encounter: 13:05 - Discharge Diagnosis (1) Severe sepsis Priority: Primary Status: Acute Assessment and Plan: Resolved. Likely resolve her WBC trended down from 22.8 to 5.5 , blood culture from [facility] was negative for the past 48 hours, urine culture does reveal Escherichia coli pansensitive. (2) E-coli UTI Priority: Secondary Status: Acute Assessment and Plan: Urine cultures from [facility] does reveal Escherichia coli uti and is pansensitive given that she presented with sepsis secondary to UTI we will had not treat orally with ciprofloxacin for another 5 days (3) MALISSA (acute kidney injury) Priority: Secondary Status: Acute Assessment and Plan: resolved likely secondary to sepsis (4) DVT prophylaxis Priority: Secondary Status: Acute Assessment and Plan: Patient already on anticoagulation therapy with Xarelto (5) Anemia Priority: Secondary Status: Chronic Assessment and Plan: Continue ferrous sulfate patient denies any melena hematochezia might need outpatient follow-up with colonoscopy hemoglobin stable at 8.6 Qualifiers: Anemia type: iron deficiency Iron deficiency anemia type: unspecified iron deficiency Qualified Code(s): D50.9 - Iron deficiency anemia, unspecified (6) Atrial fibrillation Priority: Secondary Status: Chronic Assessment and Plan: Chronic and stable continues xarelto patient is rate controlled Qualifiers: Atrial fibrillation type: paroxysmal Qualified Code(s): I48.0 - Paroxysmal atrial fibrillation (7) COPD (chronic obstructive pulmonary disease) Priority: Secondary Status: Chronic Assessment and Plan: Stable and chronic this is no COPD exacerbation continue current home medications Qualifiers: COPD type: unspecified COPD Qualified Code(s): J44.9 - Chronic obstructive pulmonary disease, unspecified (8) DM type 2 (diabetes mellitus, type 2) Priority: Secondary Status: Chronic Assessment and Plan: We will resume her oral diabetic medication Qualifiers: Diabetes mellitus extermination inspector insulin use: without prison use Diabetes mellitus complication status: without complication Qualified Code(s): E11.9 - Type 2 diabetes mellitus without complications (9) Obesity Priority: Secondary Status: Chronic Assessment and Plan: Continue to encourage lifestyle changes diet and exercise Qualifiers: Obesity type: due to excess calories Obesity classification: adult class 3 (BMI >= 40) Serious obesity comorbidity presence: with serious comorbidity Body mass index: unspecified BMI Qualified Code(s): E66.01 - Morbid (severe) obesity due to excess calories Hospital course: Ms. Finch is a 62 year old female who was hospitalized for severe sepsis which was attributed to be from her Escherichia coli UTI. During the hospital stay she was treated for acute kidney injury and diabetes. Patient was noted to have microcytic Anemia and was encouraged to follow-up with her primary care physician for outpatient colonoscopy. Discharge discussed with: patient, nurse - Time Spent with Patient Total time spent providing and/or coordinating discharge services:35 - Discharge Medications Prescriptions: New Ciprofloxacin [Cipro] 500 mg PO BID 5 Days tablet Lactobacillus [Culturelle] 1 each PO BID #60 cap.sprink Ferrous Sulfate 325 mg PO BIDWM #60 tablet Montelukast [Singulair] 10 mg PO HS tablet Metoprolol XL (24 HR) Succ [Toprol Xl] 100 mg PO DAILY tab.er.24h Ascorbic Acid [Vitamin C] 500 mg PO 0730 tablet Continued Rivaroxaban [Xarelto] 20 mg PO DAILY Isosorbide MONOnitrate (24 HR) [Imdur] 60 mg PO QAM Losartan [Cozaar] 25 mg PO DAILY Saxagliptin HCl [Onglyza] 5 mg PO DAILY Cetirizine HCl [Zyrtec] 10 mg PO DAILY PRN PRN Reason: Allergy Symptoms Albuterol Sulfate [Ventolin Hfa] 2 puff IH Q4HR PRN PRN Reason: Shortness Of Breath Bumetanide 2 mg PO DAILY Calcium Carbonate/Vitamin D3 [Calcium 600 + Vit D Tablet] 1 tab PO DAILY Albuterol Neb [AccuNeb] 1.25 mg IH Q4-6H PRN PRN Reason: Shortness Of Breath Aspirin [Adult Aspirin Regimen] 81 mg PO DAILY Atorvastatin [Lipitor] 40 mg PO DAILY Budesonide Neb [Pulmicort Neb] 0.5 mg IH BID FLUoxetine HCl [Prozac] 20 mg PO DAILY hydrOXYzine HCl [Hydroxyzine HCl] 25 - 50 mg PO HS PRN PRN Reason: Insomnia Insulin Glargine,Hum.rec.anlog [Lantus Solostar] 10 unit SQ HS Metoprolol Succinate [Toprol Xl] 50 mg PO DAILY Pantoprazole Sodium [Protonix] 40 mg PO DAILY Pregabalin [Lyrica] 75 mg PO BID Roflumilast [Daliresp] 500 mcg PO DAILY Sucralfate [Carafate] 1 gm PO QPM Tiotropium Br/Olodaterol HCl [Stiolto Respimat Inhal [place]] 2 puff IH DAILY Allopurinol [Zyloprim 100 MG] 100 mg PO DAILY Cholecalciferol (Vitamin D3) [Vitamin D3] 5,000 unit PO DAILY Methocarbamol [Robaxin-750] 750 mg PO TID Magnesium 250 mg PO DAILY Home Medications: Rivaroxaban [Xarelto] 20 mg PO DAILY 09/15/17 [History] Cetirizine HCl [Zyrtec] 10 mg PO DAILY PRN 10/13/17 [History] Isosorbide MONOnitrate (24 HR) [Imdur] 60 mg PO QAM 10/13/17 [History] Losartan [Cozaar] 25 mg PO DAILY 10/13/17 [History] Saxagliptin HCl [Onglyza] 5 mg PO DAILY 10/13/17 [History] Methocarbamol [Robaxin-750] 750 mg PO TID 11/29/17 [History] Albuterol Sulfate [Ventolin Hfa] 2 puff IH Q4HR PRN 11/30/17 [History] Bumetanide 2 mg PO DAILY 11/30/17 [History] Calcium Carbonate/Vitamin D3 [Calcium 600 + Vit D Tablet] 1 tab PO DAILY 11/30/17 [History] Magnesium 250 mg PO DAILY 08/28/18 [History] Albuterol Neb [AccuNeb] 1.25 mg IH Q4-6H PRN 08/30/18 [History] Allopurinol [Zyloprim 100 MG] 100 mg PO DAILY 08/30/18 [History] Aspirin [Adult Aspirin Regimen] 81 mg PO DAILY 08/30/18 [History] Atorvastatin [Lipitor] 40 mg PO DAILY 08/30/18 [History] Budesonide Neb [Pulmicort Neb] 0.5 mg IH BID 08/30/18 [History] Cholecalciferol (Vitamin D3) [Vitamin D3] 5,000 unit PO DAILY 08/30/18 [History] FLUoxetine HCl [Prozac] 20 mg PO DAILY 08/30/18 [History] Insulin Glargine,Hum.rec.anlog [Lantus Solostar] 10 unit SQ HS 08/30/18 [History] Metoprolol Succinate [Toprol Xl] 50 mg PO DAILY 08/30/18 [History] Pantoprazole Sodium [Protonix] 40 mg PO DAILY 08/30/18 [History] Pregabalin [Lyrica] 75 mg PO BID 08/30/18 [History] Roflumilast [Daliresp] 500 mcg PO DAILY 08/30/18 [History] Sucralfate [Carafate] 1 gm PO QPM 08/30/18 [History] Tiotropium Br/Olodaterol HCl [Stiolto Respimat Inhal [place]] 2 puff IH DAILY 08/30/18 [History] hydrOXYzine HCl [Hydroxyzine HCl] 25 - 50 mg PO HS PRN 08/30/18 [History] Ascorbic Acid [Vitamin C] 500 mg PO 0730 tablet 08/31/18 [Rx] Ciprofloxacin [Cipro] 500 mg PO BID 5 Days tablet 08/31/18 [Rx] Ferrous Sulfate 325 mg PO BIDWM #60 tablet 08/31/18 [Rx] Lactobacillus [Culturelle] 1 each PO BID #60 cap.sprink 08/31/18 [Rx] Metoprolol XL (24 HR) Succ [Toprol Xl] 100 mg PO DAILY tab.er.24h 08/31/18 [Rx] Montelukast [Singulair] 10 mg PO HS tablet 08/31/18 [Rx] Allergies/Adverse Reactions: Allergy/AdvReac Type Severity Reaction Status Date / Time lisinopril AdvReac Cough Verified 08/28/18 21:09 morphine AdvReac Nausea Verified 08/28/18 21:09 Penicillins AdvReac Nausea Verified 08/28/18 21:09 ranitidine [From Zantac] AdvReac Diarrhea Verified 08/28/18 21:09 Date of admission: 08/29/18 06:43 Primary care physician: Neela Chavarria CNP Consults: 08/29/18 04:09 Consult to [place] Machine Operator [CONS] Routine Reason for SW Consult: poor home living conditions 08/30/18 11:42 Consult to Physical Therapy [CONS] Routine Comment: Evaluate, develop and implement POC Reason for Consult: limited mobility Does patient have active BEDREST order?: No Is patient medically & hemodynamically stable?: Yes Patient assessed for mobility or mobilized this visit?: No Discharging clinician: Elan Busby Anticipated date of discharge: 08/31/18 - Constitutional Vitals: Temp Pulse Resp BP Pulse Ox 97.6 F 85 18 144/75 91 08/31/18 11:08 08/31/18 11:08 08/31/18 11:08 08/31/18 11:08 08/31/18 11:08 General appearance: Present: mild distress, A&O X 3 Exam: GENERAL: NAD, A&O x3, pleasant and conversant SKIN: Multiple skin excoriations noted in torso and upper and lower extremity non-jaundiced EYES: EOMI, PERRLA, no sclera icterus HENT: Head atraumatic, no facial asymmetry, frontal and maxillary sinus non- tender, normal hearing, oropharynx and mucosa moist and without any exudates NECK: No cervical lymphadenopathy, trachea midline, LUNGS: vesicular breath sounds, clear to auscultation, no wheeze, rhonchi, rales or crackles. Non labored respirations HEART: Normal rate and rhythm, no murmurs or rubs ABDOMEN: soft, non-tender, non-distended, bowel sounds x 4 normoactive EXTRMITIES: No LE asymmetry, No LE edema, pedal pulses 1+ and radial pulses 2 + and equal bilaterally NEURO: Speech and comprehension appears intact. PSYCH: Cooperative, non- anxious or irritable, mood and affect is appropriate - Patient Status Disposition: Home, Self-Care Condition: Good Functional capacity at discharge: independent ambulation - Discharge Instructions Follow Up With: Neela Chavarria, ECONOMIST RESEARCH ASSISTANT [Primary Care Provider] -
== END 2018-08-31 17:22 | disposition home or self-care (01) | DRG 872 ==
LOC: 2ANU → SUATTDRO 06:43
PROVIDERS: ADMIT Family Medicine; ATTEND Pharmacist

== ENCOUNTER 2019-02-25 18:04 | Inpatient (IN) ==
[2019-02-25] MEDS ORDERED: Naloxone 0.4 MG/ML INJ IVP PRN (21:37)
[2019-02-25] MEDS ORDERED: 0.9 % Sodium Chloride 1,000 ML IVC ONE (21:39)
[2019-02-25] MEDS ORDERED: 0.9 % Sodium Chloride 1,000 ML IVC SCH (21:45)
[2019-02-26] MEDS ORDERED: *HR* Dextrose 50 % in Water (Syg) 50 ML SYRINGE IVP PRN (00:06)
[2019-02-26] MEDS ORDERED: Dextrose Gel 15 GM/37.5 ML TUBE PO PRN ×2 (00:06)
[2019-02-26] MEDS ORDERED: D5% in Water 1,000 ML IVC PRN (00:06)
[2019-02-26] MEDS: Ondansetron ODT 4 MG TAB.RAPDIS SL PRN ×3 (02:54→18:58)
[2019-02-26] MEDS: Acetaminophen 325 MG TABLET PO PRN (02:55)
[2019-02-26 04:57] LABS: Hematocrit 34.6 % (35.3-44.9); Red Cell Distribution Width 18.6 % (11.5-14.5)
[2019-02-26 04:59] LABS: Basophils # 0.1 K/mcL (0.0-0.2); Basophils % 0.3 %; Hemoglobin 9.9 g/dL (11.5-15.4); Immature Granulocytes % 1.2 % (0-4); Lymphocytes # 2.4 K/mcL (0.6-4.6); Lymphocytes % 7.4 %; Mean Corpuscular HGB Conc 28.6 g/dL (31.6-35.5); Mean Corpuscular Hemoglobin 20.8 pg (28.0-33.3); Mean Corpuscular Volume 72.5 fL (83.0-100.0); Monocytes # 2.7 K/mcL (0.0-1.3); Monocytes % 8.1 %; Platelet Count 142 K/mcL (140-400); Red Blood Count 4.77 M/mcL (3.82-4.97)
[2019-02-26] MEDS ORDERED: Azithromycin 500 MG in 0.9 % Sodium Chloride 250 ML IVPB SCH (05:00)
[2019-02-26 05:01] LABS: INR 1.7
[2019-02-26 05:10] LABS: Neutrophils # 27.3 K/mcL (1.6-8.9)
[2019-02-26 05:12] LABS: White Blood Count 32.9 K/mcL (4.3-11.1)
[2019-02-26 06:00] LABS: Alanine Aminotransferase 12 Units/L (7-52); Albumin 2.9 g/dL (3.5-5.7); Albumin/Globulin Ratio 0.9 (1.1-2.2); Alkaline Phosphatase 91 Units/L (34-104); Aspartate Amino Transferase 13 Units/L (13-39); BUN/Creatinine Ratio 13 (6-26); Bilirubin,Total 0.6 mg/dL (0.3-1.0); Blood Urea Nitrogen 8 mg/dL (8-23); Calcium 7.8 mg/dL (8.6-10.3); Carbon Dioxide 23 mEq/L (23-29); Chloride 105 mEq/L (98-107); Globulin 3.1 g/dL (2.4-3.5); Glucose 141 mg/dL (70-105); Hypochromasia Present (Not Present); Magnesium 1.6 mg/dL (1.6-2.6); Osmolality,Calculated 289 (280-300); Phosphorous 3.6 mg/dL (2.7-4.5); Polychromasia 1+ (Not Present); Potassium 3.6 mEq/L (3.5-5.1); Sodium 139 mEq/L (136-145); Toxic Granulation Present (Not Present); eGFR For African Americans > 60 (> 60); eGFR For Non-African Americans > 60 (> 60)
[2019-02-26] MEDS ORDERED: Cefepime HCl 1,000 MG in 0.9 % Sodium Chloride Mini Bag 100 ML IVPB SCH (06:00)
[2019-02-26] MEDS ORDERED: Insulin LISPRO 300 UNITS/3 ML VIAL SQ SCH (06:00)
[2019-02-26 06:02] LABS: Anisocytosis 1+ (Not Present); Platelet Estimate Normal (Normal)
[2019-02-26] MEDS ORDERED: Ringers Solution, Lactated 1,000 ML IVC SCH (08:00)
[2019-02-26] MEDS ORDERED: Ipratropium/Albuterol Neb 3 ML IH PRN (08:03)
[2019-02-26] MEDS: Methocarbamol 750 MG TABLET PO SCH ×3 (09:58→21:00)
[2019-02-26] MEDS: Metoprolol XL (24 HR) Succ 25 MG TAB.ER.24H PO SCH (09:59)
[2019-02-26] MEDS: FLUoxetine 20 MG CAPSULE PO SCH (09:59)
[2019-02-26] MEDS: Nystatin POWDER 30 GM BOTTLE TP SCH ×2 (09:59→21:02)
[2019-02-26] MEDS: Apixaban 5 MG TABLET PO SCH ×2 (09:59→21:00)
[2019-02-26] MEDS: Cholecalciferol (D-3) 1,000 UNIT (25MCG) TABLET PO SCH (09:59)
[2019-02-26] MEDS: Magnesium Oxide 400 MG TABLET PO SCH ×2 (09:59→21:01)
[2019-02-26] MEDS: 0.9 % Sodium Chloride 1,000 ML IVC SCH (10:00)
[2019-02-26] MEDS: Insulin LISPRO 300 UNITS/3 ML VIAL SQ SCH ×2 (12:07→17:38)
[2019-02-26] MEDS ORDERED: hydrOXYzine pamoate 25 MG CAPSULE PO PRN (13:18)
[2019-02-26] MEDS: cefTRIAXone 2,000 MG in Water for inj. (sterile) 20 ML IVP SCH (14:38)
[2019-02-26] MEDS ORDERED: Nystatin Ointment 15 GM TUBE TP SCH (15:00)
[2019-02-26] MEDS: Budesonide/Formoterol 160/4.5 1 PUFF INH IH SCH (20:04)
[2019-02-27] MEDS: 0.9 % Sodium Chloride 1,000 ML IVC SCH (00:56)
[2019-02-27] MEDS: Acetaminophen 325 MG TABLET PO PRN (03:04)
[2019-02-27 05:59] LABS: Basophils # 0.1 K/mcL (0.0-0.2); Basophils % 0.3 %; Eosinophils # 0.1 K/mcL (0.0-0.6); Eosinophils % 0.4 %; Hematocrit 30.9 % (35.3-44.9); Hemoglobin 8.7 g/dL (11.5-15.4); Immature Granulocytes % 0.7 % (0-4); Lymphocytes # 1.7 K/mcL (0.6-4.6); Lymphocytes % 9.4 %; Mean Corpuscular HGB Conc 28.2 g/dL (31.6-35.5); Mean Corpuscular Hemoglobin 21.4 pg (28.0-33.3); Mean Corpuscular Volume 76.1 fL (83.0-100.0); Monocytes # 1.2 K/mcL (0.0-1.3); Monocytes % 6.7 %; Neutrophils # 14.7 K/mcL (1.6-8.9); Platelet Count 161 K/mcL (140-400); Red Blood Count 4.06 M/mcL (3.82-4.97); Red Cell Distribution Width 18.7 % (11.5-14.5); Segmented Neutrophils % 82.5 %; White Blood Count 17.8 K/mcL (4.3-11.1)
[2019-02-27 06:12] LABS: BUN/Creatinine Ratio 13 (6-26); Blood Urea Nitrogen 6 mg/dL (8-23); Calcium 8.1 mg/dL (8.6-10.3); Carbon Dioxide 24 mEq/L (23-29); Chloride 106 mEq/L (98-107); Glucose 130 mg/dL (70-105); Magnesium 1.8 mg/dL (1.6-2.6); Osmolality,Calculated 287 (280-300); Phosphorous 2.8 mg/dL (2.7-4.5); Potassium 3.7 mEq/L (3.5-5.1); Sodium 139 mEq/L (136-145); eGFR For African Americans > 60 (> 60); eGFR For Non-African Americans > 60 (> 60)
[2019-02-27 06:33] LABS: Anisocytosis 1+ (Not Present); Poikilocytosis 1+ (Not Present)
[2019-02-27 06:34] LABS: Microcytosis Present (Not Present); Platelet Estimate Normal (Normal)
[2019-02-27] MEDS: FLUoxetine 20 MG CAPSULE PO SCH (07:45)
[2019-02-27] MEDS: Metoprolol XL (24 HR) Succ 25 MG TAB.ER.24H PO SCH (07:45)
[2019-02-27] MEDS: Aspirin Enteric Coated 81 MG Tablet PO SCH (07:45)
[2019-02-27] MEDS: Apixaban 5 MG TABLET PO SCH ×2 (07:46→21:03)
[2019-02-27] MEDS: Sucralfate 1 GM TABLET PO SCH (07:46)
[2019-02-27] MEDS: Cholecalciferol (D-3) 1,000 UNIT (25MCG) TABLET PO SCH (07:46)
[2019-02-27] MEDS: Methocarbamol 750 MG TABLET PO SCH ×3 (07:46→21:03)
[2019-02-27] MEDS: Magnesium Oxide 400 MG TABLET PO SCH ×2 (07:46→21:03)
[2019-02-27] MEDS: Ascorbic Acid 500 MG TABLET PO SCH (07:46)
[2019-02-27] MEDS: Nystatin POWDER 30 GM BOTTLE TP SCH ×2 (07:47→21:03)
[2019-02-27] MEDS: Ondansetron ODT 4 MG TAB.RAPDIS SL PRN (07:47)
[2019-02-27] MEDS: Insulin LISPRO 300 UNITS/3 ML VIAL SQ SCH ×3 (07:51→16:50)
[2019-02-27] MEDS: Budesonide/Formoterol 160/4.5 1 PUFF INH IH SCH ×2 (08:03→22:15)
[2019-02-27] MEDS ORDERED: Aminoglycoside Consult 1 EACH MC ONE (12:49)
[2019-02-27] MEDS: cefTRIAXone 2,000 MG in Water for inj. (sterile) 20 ML IVP SCH (13:16)
[2019-02-28 03:14] LABS: % Iron Saturation 4 % (15-50); Iron 10 mcg/dL (50-170); Transferrin 189 mg/dL (203-362)
[2019-02-28 03:14] LABS: Adenovirus F 40/41 PCR Not detected (Not detect); Astrovirus PCR Not detected (Not detect); C.difficile Toxin A/B Gene PCR Not detected (Not detect); Campylobacter by PCR Not detected (Not detect); Cryptosporidium by PCR Not detected (Not detect); Cyclospora cayetanensis PCR Not detected (Not detect); E. coli O157 by PCR Not detected (Not detect); Entamoeba histolytica PCR Not detected (Not detect); Enteroaggregative E.coli(EAEC) Not detected (Not detect); Enteropathogenic E.coli(EPEC) DETECTED (Not detect); Enterotoxigenic E.coli (ETEC) Not detected (Not detect); Giardia lamblia PCR Not detected (Not detect); Norovirus GI/GII PCR Not detected (Not detect); Plesiomonas shigelloides PCR Not detected (Not detect); Rotavirus A PCR Not detected (Not detect); Salmonella PCR Not detected (Not detect); Sapovirus PCR Not detected (Not detect); Shig/EnteroinvasiveE coli EIEC Not detected (Not detect); Shigalike tox-prod E coli STEC Not detected (Not detect); Vibrio PCR Not detected (Not detect); Vibrio cholerae PCR Not detected (Not detect); Yersinia enterocolitica PCR Not detected (Not detect)
[2019-02-28] MEDS: Methocarbamol 750 MG TABLET PO SCH ×3 (07:22→20:19)
[2019-02-28] MEDS: Magnesium Oxide 400 MG TABLET PO SCH ×2 (07:22→20:19)
[2019-02-28] MEDS: Apixaban 5 MG TABLET PO SCH ×2 (07:22→20:19)
[2019-02-28] MEDS: Nystatin POWDER 30 GM BOTTLE TP SCH ×2 (07:22→20:19)
[2019-02-28] MEDS: Sucralfate 1 GM TABLET PO SCH (07:22)
[2019-02-28] MEDS: FLUoxetine 20 MG CAPSULE PO SCH (07:22)
[2019-02-28] MEDS: Metoprolol XL (24 HR) Succ 25 MG TAB.ER.24H PO SCH (07:22)
[2019-02-28] MEDS: Aspirin Enteric Coated 81 MG Tablet PO SCH (07:22)
[2019-02-28] MEDS: Bumetanide 1 MG TABLET PO SCH (07:22)
[2019-02-28] MEDS: Ascorbic Acid 500 MG TABLET PO SCH (07:22)
[2019-02-28] MEDS: Cholecalciferol (D-3) 1,000 UNIT (25MCG) TABLET PO SCH (07:22)
[2019-02-28] MEDS: Insulin LISPRO 300 UNITS/3 ML VIAL SQ SCH ×3 (07:24→16:31)
[2019-02-28] MEDS: Budesonide/Formoterol 160/4.5 1 PUFF INH IH SCH ×2 (07:53→20:39)
[2019-02-28] MEDS: cefTRIAXone 2,000 MG in Water for inj. (sterile) 20 ML IVP SCH (13:11)
[2019-02-28] MEDS: Ondansetron ODT 4 MG TAB.RAPDIS SL PRN (14:59)
[2019-02-28 15:23] LABS: Estimated Average Glucose 252 mg/dl
[2019-02-28] MEDS: Acetaminophen 325 MG TABLET PO PRN (23:38)
[2019-03-01 02:24] LABS: Basophils % 0.8 %; Red Cell Distribution Width 18.3 % (11.5-14.5)
[2019-03-01 02:26] LABS: Basophils # 0.1 K/mcL (0.0-0.2); Eosinophils # 0.1 K/mcL (0.0-0.6); Eosinophils % 1.3 %; Hemoglobin 8.8 g/dL (11.5-15.4); Immature Granulocytes % 1.9 % (0-4); Lymphocytes # 1.7 K/mcL (0.6-4.6); Lymphocytes % 19.6 %; Mean Corpuscular HGB Conc 28.4 g/dL (31.6-35.5); Mean Corpuscular Hemoglobin 21.1 pg (28.0-33.3); Mean Corpuscular Volume 74.3 fL (83.0-100.0); Monocytes # 0.8 K/mcL (0.0-1.3); Monocytes % 9.4 %; Neutrophils # 5.8 K/mcL (1.6-8.9); Platelet Count 148 K/mcL (140-400); Red Blood Count 4.17 M/mcL (3.82-4.97); White Blood Count 8.6 K/mcL (4.3-11.1)
[2019-03-01 02:37] LABS: BUN/Creatinine Ratio 7 (6-26); Blood Urea Nitrogen 3 mg/dL (8-23); Calcium 8.6 mg/dL (8.6-10.3); Carbon Dioxide 26 mEq/L (23-29); Chloride 106 mEq/L (98-107); Glucose 124 mg/dL (70-105); Osmolality,Calculated 280 (280-300); Potassium 3.8 mEq/L (3.5-5.1); Sodium 136 mEq/L (136-145); eGFR For African Americans > 60 (> 60); eGFR For Non-African Americans > 60 (> 60)
[2019-03-01 03:01] LABS: Platelet Estimate Decreased (Normal)
[2019-03-01] MEDS: Budesonide/Formoterol 160/4.5 1 PUFF INH IH SCH (07:49)
[2019-03-01] MEDS: Insulin LISPRO 300 UNITS/3 ML VIAL SQ SCH ×2 (08:35→11:50)
[2019-03-01] MEDS: Aspirin Enteric Coated 81 MG Tablet PO SCH (08:36)
[2019-03-01] MEDS: Bumetanide 1 MG TABLET PO SCH (08:36)
[2019-03-01] MEDS: Ascorbic Acid 500 MG TABLET PO SCH (08:36)
[2019-03-01] MEDS: FLUoxetine 20 MG CAPSULE PO SCH (08:36)
[2019-03-01] MEDS: Metoprolol XL (24 HR) Succ 25 MG TAB.ER.24H PO SCH (08:36)
[2019-03-01] MEDS: Sucralfate 1 GM TABLET PO SCH (08:36)
[2019-03-01] MEDS: Magnesium Oxide 400 MG TABLET PO SCH (08:36)
[2019-03-01] MEDS: Apixaban 5 MG TABLET PO SCH (08:36)
[2019-03-01] MEDS: Cholecalciferol (D-3) 1,000 UNIT (25MCG) TABLET PO SCH (08:36)
[2019-03-01] MEDS: Methocarbamol 750 MG TABLET PO SCH (08:36)
[2019-03-01] MEDS: Nystatin POWDER 30 GM BOTTLE TP SCH (08:37)
[2019-03-01 11:47] VITALS: BP 128/82
== END 2019-03-01 12:50 | disposition home health service (06) | DRG 871 ==
LOC: INTOOBSV 21:04 → 2NNU 21:04 → SUATTDRO 02-26 08:33
PROVIDERS: ADMIT Internal Medicine; ATTEND Family Medicine